=== PATIENT | male | born 1975 | race Caucasian/White ===

== ENCOUNTER 2016-09-23 08:05 | Observation (INO) | payer OTHER ==
[~2016-09-23 08:05] MED LIST: CITA40TA4 PO; OXCA300 PO; SERO100T PO; SERO400T PO; TRAZ100T4 PO; TRIL300T PO
[2016-09-23 08:08] VITALS: BP 161/93; PULSE 109; RESP 18; TEMP 98.2; O2SAT 98
[2016-09-23] MEDS ORDERED: SODIUM CHLOR 0.9% 1000 ML INJ 1,000 ML IV ONE (08:21)
--- NOTE | 2016-09-23 08:23 | PD ---
HPI Chief Complaint: cephalgia Time Seen by Provider: 08:21 Travel History International Travel<30 days: No Contact w/Intl Traveler<30days: No Traveled to known affect area: No History of Present Illness HPI This is a 40-year-old gentleman with history of seizure disorder, schizoaffective disorder, who presents today with complaints of left sided headache with blurry vision in the right eye. When looking through records, the patient has been seen and evaluated multiple times for the same thing. She states that he's been told that he possibly could've had a TIA however records show that the neurologists on 2 occasions thought this was an atypical migraine. Patient also had blurry vision at that time was seen by ophthalmology who felt there was no acute issues. The patient states that he was arguing with his girlfriend when he experienced a headache. He denies this being the worse headache of his life. He denies any neck stiffness. The patient does have a very flat affect and is vague when answering questions regarding his past medical history. This history was obtained through old records. When asked the patient possibly could've had a seizure, he denies. He does state that he fell twice last 2 days. He denies any injuries from the falls. PFSH Past Medical History Arthritis: Yes Asthma: No Autoimmune Disease: No Blood Disorders: No Anxiety: No Depression: Yes Heart Rhythm Problems: No Cancer: No Cardiovascular Problems: No High Cholesterol: No Chemotherapy: No Chest Pain: No Congestive Heart Failure: No COPD: No Cerebrovascular Accident: Yes (TIA) Diabetes: No Diminished Hearing: No Endocrine: No Gastrointestinal Disorders: No GERD: Yes Glaucoma: No Genitourinary: No Headaches: Yes Hepatitis: No Hiatal Hernia: No Hypertension: No Immune Disorder: No Inguinal Hernia: Yes Implanted Vascular Access Dvce: No Kidney Stones: No Musculoskeletal: No Neurologic: Yes Psychiatric: Yes Reproductive: No Respiratory: No Migraines: Yes Myocardial Infarction: No Radiation Therapy: No Renal Failure: No Schizophrenia: Yes Seizures: Yes Sickle Cell Disease: No Sleep Apnea: No Thyroid Disease: No Ulcer: No PNEUMOCCOCAL Vaccine (Year): 2 Past Surgical History Abdominal Surgery: Yes (hernia repair) AICD: No Cardiac Surgery: No Ear Surgery: No Endocrine Surgery: No Eye Surgery: No Genitourinary Surgery: No Gynecologic Surgery: No Neurologic Surgery: Yes (cranial as a child) Oral Surgery: No Pacemaker: No Thoracic Surgery: No Other Surgery: Yes Social History Alcohol Use: No Tobacco Use: No Substance Use: No Allergies-Medications (Allergen,Severity, Reaction): Coded Allergies: Dilantin (Verified Allergy, Severe, VISION LOSS, 09/23/16) Haldol (Verified Allergy, Severe, MUSCLE SPASMS, 09/23/16) Cogentin (Verified Adverse Reaction, Severe, MUSCLE SPASMS, 09/23/16) Reported Meds & Prescriptions Reported Meds & Active Scripts Active Reported Trazodone (Trazodone HCl) 100 Mg Tab 100 Mg PO HS Seroquel (Quetiapine Fumarate) 100 Mg Tab 100 Mg PO BID Seroquel (Quetiapine Fumarate) 400 Mg Tab 400 Mg PO HS Trileptal (Oxcarbazepine) 300 Mg Tab 300 Mg PO BID Citalopram (Citalopram Hydrobromide) 40 Mg Tab 40 Mg PO DAILY Review of Systems Except as stated in HPI: all other systems reviewed are Neg General / Constitutional: No: Fever, Chills Eyes: Positive: Blurred Vision (right eye), Photophobia, No: Redness, Foreign Body Sensation, Blindness HENT: Positive: Headaches (sided), No: Neck Stiffness, Neck Pain Cardiovascular: No: Chest Pain or Discomfort, Palpitations Respiratory: No: Cough, Shortness of Breath Gastrointestinal: No: Nausea, Vomiting, Abdominal Pain Musculoskeletal: No: Weakness, Pain Neurologic: Positive: Headache, Seizures (history of), No: Change in Mentation , Slurred Speech, Incontinence Psychiatric: Positive: Mood Disorder, No: Depression Physical Exam Narrative GENERAL: Well-developed well-nourished gentleman in no acute respiratory distress. SKIN: Focused skin assessment warm/dry. HEAD: Atraumatic. Normocephalic. EYES: No scleral icterus. No injection or drainage. ENT: No nasal bleeding or discharge. Mucous membranes pink and moist. NECK: Trachea midline. Supple. CARDIOVASCULAR: Rate in the 90s. No murmurs gallops rubs. RESPIRATORY: No accessory muscle use. Clear to auscultation. Breath sounds equal bilaterally. GASTROINTESTINAL: Abdomen soft, non-tender, nondistended. MUSCULOSKELETAL: No obvious deformities. No clubbing. No cyanosis. No edema. NEUROLOGICAL: Awake and alert. No obvious cranial nerve deficits. Motor grossly within normal limits. Normal speech. On examination of the patient's upper and lower extremities, there is 5 out of 5 strength bilaterally. PSYCHIATRIC: Flat affect. Vague response to several questions.. Data Data Last Documented VS Vital Signs Date Time Temp Pulse Resp B/P Pulse Ox O2 Delivery O2 Flow Rate FiO2 09/23/16 08:41 98.7 109 16 146/84 96 Room Air Orders Complete Blood Count With Diff (09/23/16 08:21) Comprehensive Metabolic Panel (09/23/16 08:21) Ct Brain W/O Iv Contrast(Rout) (09/23/16 08:21) Ecg Monitoring (09/23/16 08:21) Iv Access Insert/Monitor (09/23/16 08:21) Oximetry (09/23/16 08:21) Sodium Chloride 0.9% Flush (Ns Flush) (09/23/16 08:30) Sodium Chlor 0.9% 1000 Ml Inj (Ns 1000 M (09/23/16 08:21) Labs Laboratory Tests Test 09/23/16 08:32 White Blood Count 9.2 TH/MM3 Red Blood Count 4.88 MIL/MM3 Hemoglobin 14.8 GM/DL Hematocrit 43.0 % Mean Corpuscular Volume 88.1 FL Mean Corpuscular Hemoglobin 30.4 PG Mean Corpuscular Hemoglobin 34.5 % Concent Red Cell Distribution Width 14.9 % Platelet Count 222 TH/MM3 Mean Platelet Volume 9.2 FL Neutrophils (%) (Auto) 75.8 % Lymphocytes (%) (Auto) 18.2 % Monocytes (%) (Auto) 4.9 % Eosinophils (%) (Auto) 0.7 % Basophils (%) (Auto) 0.4 % Neutrophils # (Auto) 7.0 TH/MM3 Lymphocytes # (Auto) 1.7 TH/MM3 Monocytes # (Auto) 0.5 TH/MM3 Eosinophils # (Auto) 0.1 TH/MM3 Basophils # (Auto) 0.0 TH/MM3 CBC Comment DIFF FINAL Differential Comment Sodium Level 139 MEQ/L Potassium Level 3.6 MEQ/L Chloride Level 102 MEQ/L Carbon Dioxide Level 28.1 MEQ/L Anion Gap 9 MEQ/L Blood Urea Nitrogen 18 MG/DL Creatinine 1.28 MG/DL Estimat Glomerular Filtration 63 ML/MIN Rate Random Glucose 128 MG/DL Calcium Level 8.6 MG/DL Total Bilirubin 0.7 MG/DL Aspartate Amino Transf 20 U/L (AST/SGOT) Alanine Aminotransferase 29 U/L (ALT/SGPT) Alkaline Phosphatase 75 U/L Total Protein 7.4 GM/DL Albumin 3.9 GM/DL MDM Medical Decision Making Medical Screen Exam Complete: Yes Emergency Medical Condition: Yes Differential Diagnosis Atypical migraine versus postictal seizure versus TIA Narrative Course This is a 40-year-old gentle who presents with complaints of headache. The patient states it started when he was riding with his girlfriend. The patient also now says that he had some numbness and tingling to his right arm. He had normal strength on my examination. Laboratory tests are within normal limits however CT scan shows some bilateral hypodensities which are new from the MRI from a year ago. Given this, I feel is prudent that he be brought in under observation have another MRI and have neurology evaluate him. The case was discussed with Dr. Hennessy with the [facility] who is agreeable to bring the patient under observation status. Diagnosis Primary Impression: Cephalgia Additional Impressions: subacute CT brain changes. History of seizure disorder Admitting Information Admitting Physician Requests: Observation Andrea Cummings MD Sep 23, 2016 08:23
[2016-09-23] MEDS ORDERED: SODIUM CHLORIDE 0.9% FLUSH 10 ML FLUSH IVF PRN (08:30)
[2016-09-23 08:41] VITALS: BP 146/84; PULSE 109; RESP 16; TEMP 98.7; O2SAT 96
[2016-09-23 08:54] LABS: BASOPHIL % 0.4 % (0.0-2.0); EOSINOPHIL # 0.1 TH/MM3 (0-0.4); EOSINOPHIL % 0.7 % (0.0-4.0); HEMO FLAGS DIFF FINAL; LYMPH % 18.2 % (9.0-44.0); LYMPHOCYTE # 1.7 TH/MM3 (1.0-4.8); MEAN CELL VOLUME 88.1 FL (80.0-100.0); MEAN CORPUSCULAR HEMOGLOBIN 30.4 PG (27.0-34.0); MEAN CORPUSCULAR HGB CONC 34.5 % (32.0-36.0); MONO % 4.9 % (0.0-8.0); NEUT % 75.8 % (16.0-70.0); PLATELET COUNT 222 TH/MM3 (150-450); RED BLOOD COUNT 4.88 MIL/MM3 (4.50-5.90); RED CELL DISTRIBUTION WIDTH 14.9 % (11.6-17.2); WHITE BLOOD COUNT 9.2 TH/MM3 (4.0-11.0)
--- NOTE | 2016-09-23 09:03 | RADRPT ---
EXAM DATE/TIME: 09/23/2016 08:33 [facility] COMPARISON: MRI BRAIN W/O CONTRAST, August 29, 2015, 12:17. CT BRAIN W/O CONTRAST, August 29, 2015, 7:50. INDICATIONS : Dizziness, left temporal pain, blurred vision right eye. RADIATION DOSE: 56.35 CTDIvol (mGy) MEDICAL HISTORY : Seizures. Stroke SURGICAL HISTORY : Craniotomy. ENCOUNTER: Initial ACUITY: 1 day PAIN SCALE: 7/10 LOCATION: Left temporal TECHNIQUE: Multiple contiguous axial images were obtained of the head. Using automated exposure control and adj ustment of the mA and/or kV according to patient size, radiation dose was kept as low as reasonably a chievable to obtain optimal diagnostic quality images. FINDINGS: First small developing hypodensities in the subcortical white matter of the mid convexity frontal reg ions bilaterally there is no evidence of intracranial hemorrhage. The ventricles are stable and symme tric. The posterior fossa and brainstem structures are unremarkable. CONCLUSION: Developing bilateral hypodensities Luis Darnell MD on September 23, 2016 at 8:57 Board Certified Radiologist. This report was verified electronically.
[2016-09-23 09:13] LABS: ANION GAP 9 MEQ/L (5-15); AST (GOT) 20 U/L (15-37); BICARBONATE 28.1 MEQ/L (21.0-32.0); BLOOD UREA NITROGEN 18 MG/DL (7-18); CHLORIDE 102 MEQ/L (98-107); GLOMERULAR FILTRATION RATE 63 ML/MIN (>89); POTASSIUM 3.6 MEQ/L (3.5-5.1); SODIUM (NA) 139 MEQ/L (136-145)
[2016-09-23 09:17] LABS: ALKALINE PHOSPHATASE 75 U/L (45-117); ALT (GPT) 29 U/L (12-78); TOTAL BILIRUBIN ADULT 0.7 MG/DL (0.2-1.0)
[2016-09-23 10:14] VITALS: BP 135/64; PULSE 77; RESP 16; O2SAT 97
[2016-09-23] MEDS ORDERED: NALOXONE HCL 0.4 MG/ML AMP IV PRN (10:15)
[2016-09-23] MEDS ORDERED: SODIUM CHLORIDE 0.9% FLUSH 10 ML FLUSH IV FLUSH PRN (10:15)
[2016-09-23] MEDS ORDERED: ONDANSETRON HCL 4 MG/2 ML VIAL IVP PRN (10:15)
[2016-09-23] MEDS ORDERED: MAGNESIUM HYDROXIDE SUSP 30 ML CUP PO PRN (10:15)
[2016-09-23] MEDS ORDERED: ACETAMINOPHEN 325 MG TAB PO PRN (10:15)
[2016-09-23] MEDS ORDERED: TEMAZEPAM 15 MG CAP PO PRN (10:15)
[2016-09-23] MEDS: SODIUM CHLOR 0.9% 1000 ML INJ 1,000 ML IV SCH ×2 (11:14→20:21)
[2016-09-23 12:16] VITALS: BP 134/86; PULSE 85; RESP 18; TEMP 98.7; O2SAT 97
--- NOTE | 2016-09-23 15:44 | HHI.HP ---
[facility] Mayda Moore MD Admission Diagnosis cephalgia, subacute CT brain changes, seizure disorder. Diagnoses: Chief Complaint: Headache, blurred vision, numbness Travel History International Travel<30 Days: No Contact w/Intl Traveler <30 Da: No Traveled to Known Affected Are: No History of Present Illness 40-year-old male with a past medical history of seizure disorder, schizoaffective disorder, history of TIA who presented with headache, blurry vision, and right-sided numbness. Patient states that around noon yesterday he was having an argument with his girlfriend and developed neurological symptoms. He states that he's been having left temporal headache, right eye blurriness, and numbness on his right side constantly since that time. He also states that he had 2 falls yesterday, because he's been having intermittent right leg weakness. He states that he's been feeling dizzy. He denies any chest pain, palpitations, fever, chills, cough, shortness of breath, incontinence. He denies any history of similar symptoms or migraines. Review of Systems Except as stated in HPI: all other systems reviewed are Neg Past Family Social History Past Medical History Seizure disorder Schizoaffective disorder TIA 2, last episode 2008 Past Surgical History Intracranial surgery at age 1-1/2 Hernia surgery in 1994 Reported Medications Trazodone (Trazodone HCl) 100 Mg Tab 100 Mg PO HS Seroquel (Quetiapine Fumarate) 100 Mg Tab 100 Mg PO BID Seroquel (Quetiapine Fumarate) 400 Mg Tab 400 Mg PO HS Trileptal (Oxcarbazepine) 300 Mg Tab 300 Mg PO BID Citalopram (Citalopram Hydrobromide) 40 Mg Tab 40 Mg PO DAILY Allergies: Coded Allergies: Dilantin (Verified Allergy, Severe, VISION LOSS, 09/23/16) Haldol (Verified Allergy, Severe, MUSCLE SPASMS, 09/23/16) Cogentin (Verified Adverse Reaction, Severe, MUSCLE SPASMS, 09/23/16) Active Ordered Medications Current Medications Medications (Trade) Dose Ordered Sig/Cherie Route Start Time Stop Time Status Last Admin (NS 1000 ml Inj) 1,000 ml @ 100 mls/hr Q10H IV 09/23/16 11:00 09/23/16 11:14 (NS Flush) 2 ml UNSCH PRN IV FLUSH 09/23/16 10:15 (NS Flush) 2 ml BID IV FLUSH 09/23/16 21:00 (Tylenol) 650 mg Q4H PRN PO 09/23/16 10:15 (Zofran Inj) 4 mg Q6H PRN IVP 09/23/16 10:15 (Milk Of Magnesia Liq) 30 ml Q12H PRN PO 09/23/16 10:15 (Restoril) 15 mg HS PRN PO 09/23/16 10:15 (Narcan Inj) 0.4 mg UNSCH PRN IV 09/23/16 10:15 (CeleXA) 40 mg DAILY PO 09/24/16 09:00 (Trileptal) 300 mg BID PO 09/23/16 21:00 (SEROquel) 100 mg BID PO 09/23/16 21:00 (Desyrel) 100 mg HS PO 09/23/16 21:00 (SEROquel) 400 mg HS PO 09/23/16 21:00 Family History Mother had seizures Mother had bipolar disorder Social History Smokes 1 pack every 3 days Drinks about 12 beers per week Denies any drug use Physical Exam Vital Signs Vital Signs Date Time Temp Pulse Resp B/P Pulse Ox O2 Delivery O2 Flow Rate FiO2 09/23/16 12:16 98.7 85 18 134/86 97 09/23/16 10:41 Room Air 09/23/16 10:14 77 16 135/64 97 Room Air 09/23/16 08:41 98.7 109 16 146/84 96 Room Air 09/23/16 08:08 98.2 109 18 161/93 98 Room Air Physical Exam GENERAL: Well-developed well-nourished. In no acute distress. SKIN: Warm and dry. No lesions noted. HEENT: Normocephalic. Pupils equal and round. Mucous membranes pink and moist. CARDIOVASCULAR: Regular rate and rhythm. No murmur appreciated. RESPIRATORY: No accessory muscle use. Clear to auscultation. Breath sounds equal bilaterally. GASTROINTESTINAL: Abdomen soft, non-tender, nondistended. Bowel sounds x4. MUSCULOSKELETAL: No obvious deformities. No clubbing or cyanosis. No edema. NEUROLOGICAL: Awake and alert. Moves upper and lower extremities spontaneously. Normal speech. Cranial nerves grossly intact. Blurred vision right eye. Subjectively decreased sensation in the right upper extremity. Decreased strength on the right. Good strength in the left. PSYCHIATRIC: Appropriate mood and flat affect; insight and judgment normal. Laboratory Laboratory Tests Test 09/23/16 08:32 White Blood Count 9.2 Red Blood Count 4.88 Hemoglobin 14.8 Hematocrit 43.0 Mean Corpuscular Volume 88.1 Mean Corpuscular Hemoglobin 30.4 Mean Corpuscular Hemoglobin 34.5 Concent Red Cell Distribution Width 14.9 Platelet Count 222 Mean Platelet Volume 9.2 Neutrophils (%) (Auto) 75.8 Lymphocytes (%) (Auto) 18.2 Monocytes (%) (Auto) 4.9 Eosinophils (%) (Auto) 0.7 Basophils (%) (Auto) 0.4 Neutrophils # (Auto) 7.0 Lymphocytes # (Auto) 1.7 Monocytes # (Auto) 0.5 Eosinophils # (Auto) 0.1 Basophils # (Auto) 0.0 CBC Comment DIFF FINAL Differential Comment Sodium Level 139 Potassium Level 3.6 Chloride Level 102 Carbon Dioxide Level 28.1 Anion Gap 9 Blood Urea Nitrogen 18 Creatinine 1.28 Estimat Glomerular Filtration 63 Rate Random Glucose 128 Calcium Level 8.6 Total Bilirubin 0.7 Aspartate Amino Transf 20 (AST/SGOT) Alanine Aminotransferase 29 (ALT/SGPT) Alkaline Phosphatase 75 Total Protein 7.4 Albumin 3.9 Result Diagram: 09/23/1632 09/23/1632 Imaging Last Impressions Head CT 09/23/16820 Signed Impressions: Service Date/Time: Friday, September 23, 2016 08:33 - CONCLUSION: Developing bilateral hypodensities Luis Darnell MD Assessment and Plan Assessment and Plan 40-year-old male with a past medical history of seizure disorder, schizoaffective disorder, history of TIA who presented with headache, blurry vision, and right-sided numbness Acute neurological deficits: Including left temporal headache, right eye blurry vision, right-sided numbness, right-sided and intermittent weakness. Head CT shows a developing bilateral hypodensities, unclear etiology. Neurology consulted, appreciate specialists input. It appears patient has had similar admissions for the past and been evaluated by neuro at that time with suspected migraine variants. Further imaging per neurology. Neuro checks. IVF. Tylenol as needed. PT eval. Seizure disorder: Continue Trileptal. Schizoaffective disorder: Continue Seroquel, citalopram, and trazodone. DVT prophylaxis: SCDs. Written by Lew Zaman, acting as scribe for Dr. Hennessy on 09/23/16 at 15:44. All or portions of this note were transcribed by scribe JANETH Hodge. I, Dr. Estiven Hennessy personally performed the history, physical exam, and medical decision making; and confirmed the accuracy of the information in the transcribed note. Authenticated by Dr. Estiven Hennessy on 09/23/16 at 22:16. Discussed Condition With Patient Lew Zaman Sep 23, 2016 15:44 Ana Hennessy DO Sep 23, 2016 22:17
[2016-09-23 16:56] VITALS: BP 135/89; PULSE 65; RESP 16; TEMP 98.6; O2SAT 96
[2016-09-23 19:29] VITALS: BP 122/76; PULSE 65; RESP 18; TEMP 96.8; O2SAT 97
[2016-09-23] MEDS: OXcarbazepine 300 MG TAB PO SCH (20:20)
[2016-09-23] MEDS: SODIUM CHLORIDE 0.9% FLUSH 10 ML FLUSH IV FLUSH SCH (20:20)
[2016-09-23] MEDS: QUEtiapine FUMARATE 200 MG TAB PO SCH (20:20)
[2016-09-23] MEDS: traZODone HCL 100 MG TAB PO SCH (20:20)
[2016-09-24] VITALS: BP 114/59; PULSE 66; RESP 18; TEMP 98.2; O2SAT 91
[2016-09-24 04:36] VITALS: BP 101/59; PULSE 60; RESP 18; TEMP 97.9
[2016-09-24 05:21] LABS: BICARBONATE 28.4 MEQ/L (21.0-32.0); POTASSIUM 3.7 MEQ/L (3.5-5.1)
[2016-09-24] MEDS: SODIUM CHLOR 0.9% 1000 ML INJ 1,000 ML IV SCH ×2 (06:25→19:49)
--- NOTE | 2016-09-24 06:35 | MB ---
cc: MONIQUE ANTUNEZ DATE OF CONSULTATION 09/23/2016 REASON FOR CONSULTATION Seizures and headache. HISTORY OF PRESENT ILLNESS Mr. Barrera is a 40-year-old male with past medical history of a seizure disorder, schizoaffective disorder, history of two TIAs as per patient and history of migraine headache. The patient states that he has had left temporal headache with the right eye blurriness that started around noon yesterday, then he states that he had numbness on the right side of his body and he lost balance and fell. The patient is on Trileptal 200 mg twice daily for the seizure and he was diagnosed with seizure since she was 22 years of age. 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 The patient denies slurred speech, loss of consciousness, incontinence, tongue biting or foaming. REVIEW OF SYSTEMS A 12-point review of systems is negative except for what is stated in the HPI. PAST MEDICAL HISTORY 1. Seizures. 2. Schizoaffective disorder. 3. TIA, last episode in 2008. PAST SURGICAL HISTORY 1. Intracranial surgery at 1-1/2 years of age for "overlap of skull bone". 2. Hernia surgery in 1994 FAMILY HISTORY Noncontributory. MEDICATIONS 1. Trazodone. 2. Seroquel. 3. Trileptal. 4. Citalopram. ALLERGIES DILANTIN. HALDOL. COGENTIN. SOCIAL HISTORY Smokes one-pack every 3 days, drinks about 12 beers per week and denies any drug abuse. PHYSICAL EXAMINATION GENERAL: Awake, alert. Good historian. Not in acute distress. HEENT: Scar over the midline suture of the skull of a remote surgical procedure. Intact hearing. Intact vision. CARDIOVASCULAR: Regular rate and rhythm. RESPIRATORY: No accessory muscle use. Clear to auscultate and no wheezes. MUSCULOSKELETAL: No obvious deformity. Moves all extremities equally. No clubbing or edema. NEUROLOGICAL: Awake, alert, oriented to time, person and place. Cranial nerves II-XII are grossly intact. Intact speech. Intact speech content. Motor system examination 5/5 bilateral and symmetrical. No abnormal movements and normal tone. Sensory system to light touch and temperature is intact bilateral and symmetrical. Reflexes 2+ bilateral and symmetrical. Plantars are bilaterally downgoing. [id number] and [id number] is intact bilateral. Plantars are symmetrical. PSYCHIATRIC: Appropriate mood and affect, insight and judgment. No hallucination. LABORATORY DATA White blood cells 9.2, hemoglobin 14.8, MCV 88, platelets 222,000. Sodium 139, potassium 3.6, carbon dioxide 28.1, anion gap 9, BUN 18, creatinine 1.28, calcium 8.6, GOT 20, GPT 29, alkaline phosphatase 75, albumin 3.9. IMAGING STUDIES - Head CT scan without contrast with small developing hypodensities in the subcortical white matter of mid-convexity frontal regions bilaterally with no evidence of intracranial hemorrhage. Ventricles are stable and symmetric. The posterior fossa and brainstem structures are unremarkable. DIAGNOSTIC IMPRESSION 1. History of headache and right-sided weakness. 2. History of TIA. 3. Seizures. Given the abnormal head CT scan with persistent neurologic complaints, I would pursue workup for this patient. PLAN 1. Neuro checks q. 4 hours. 2. Continue Trileptal at home dose of 200 mg twice daily. 3. Seizure precautions. 4. MRI brain with and without contrast. 5. DVT prophylaxis - SCDs. Thank you for the opportunity to participate in the care of your patient. MD VONDA Estrada/MAGDALENA /10:16 PM /6:17 AM SARIKA
[2016-09-24 08:00] VITALS: BP 135/67; PULSE 62; RESP 16; TEMP 96.8; O2SAT 98
[2016-09-24] MEDS: SODIUM CHLORIDE 0.9% FLUSH 10 ML FLUSH IV FLUSH SCH ×2 (09:00→21:00)
[2016-09-24] MEDS ORDERED: CITALOPRAM HYDROBROMIDE 40 MG TAB PO SCH (09:00)
[2016-09-24] MEDS: OXcarbazepine 300 MG TAB PO SCH ×2 (10:01→21:58)
[2016-09-24] MEDS: QUEtiapine FUMARATE 100 MG TAB PO SCH ×2 (10:01→13:33)
--- NOTE | 2016-09-24 10:26 | HHI.PR ---
Subjective Remarks Follow-up for headache. No acute issues overnight. The patient continues to have vision problems today, unchanged. Going for MRI. Objective Vitals Vital Signs Date Time Temp Pulse Resp B/P Pulse Ox O2 Delivery O2 Flow Rate FiO2 09/24/16 04:36 97.9 60 18 101/59 09/24/16 00:00 98.2 66 18 114/59 91 09/23/16 19:29 96.8 65 18 122/76 97 09/23/16 16:56 98.6 65 16 135/89 96 09/23/16 12:16 98.7 85 18 134/86 97 09/23/16 10:41 Room Air I/O 09/23/16 09/23/16 09/23/16 09/24/16 09/24/16 09/24/16 07:00 15:00 23:00 07:00 15:00 23:00 Intake Total 980 ml Output Total 375 ml Balance 605 ml Intake Oral 480 ml IV Total 500 ml Output Urine Total 375 ml Result Diagram: 09/23/16 0832 09/24/16 0349 Imaging Last Impressions Head CT 09/23/16820 Signed Impressions: Service Date/Time: Friday, September 23, 2016 08:33 - CONCLUSION: Developing bilateral hypodensities Luis Darnell MD Objective Remarks GENERAL: Well-developed well-nourished. In no acute distress. SKIN: Warm and dry. No lesions noted. HEENT: Normocephalic. Pupils equal and round. Mucous membranes pink and moist. CARDIOVASCULAR: Regular rate and rhythm. No murmur appreciated. RESPIRATORY: No accessory muscle use. Clear to auscultation. Breath sounds equal bilaterally. GASTROINTESTINAL: Abdomen soft, non-tender, nondistended. Bowel sounds x4. MUSCULOSKELETAL: No obvious deformities. No clubbing or cyanosis. No edema. NEUROLOGICAL: Awake and alert. No focal neurological deficits. Moves upper and lower extremities spontaneously. Normal speech. PSYCHIATRIC: Appropriate mood and flat affect; insight and judgment normal. A/P Assessment and Plan 40-year-old male with a past medical history of seizure disorder, schizoaffective disorder, history of TIA who presented with headache, blurry vision, and right-sided numbness Acute neurological deficits: Including left temporal headache, right eye blurry vision, right-sided numbness, right-sided and intermittent weakness. Head CT shows a developing bilateral hypodensities, unclear etiology. Neurology consulted, appreciate specialists input. It appears patient has had similar admissions for the past and been evaluated by neuro at that time with suspected migraine variants. Neurology ordered EEG and brain MRI. Neuro checks. IVF. Tylenol as needed. PT eval. Seizure disorder: Continue Trileptal. Schizoaffective disorder: Continue Seroquel, citalopram, and trazodone. DVT prophylaxis: SCDs. Written by Lew Zaman, acting as scribe for Dr. Hennessy on 09/24/16 at 10:23. All or portions of this note were transcribed by scribe JANETH Hodge. I, Dr. Estiven Hennessy personally performed the history, physical exam, and medical decision making; and confirmed the accuracy of the information in the transcribed note. Authenticated by Dr. Estiven Hennessy on 09/24/16 at 23:24. Discharge Planning Follow up results of EEG and MRI. Follow-up PT recommendations. Workup was unremarkable and patient remains stable, discharge planning for follow-up with neurology as outpatient. Lew Zaman Sep 24, 2016 10:25 Ana Hennessy DO Sep 24, 2016 23:25
[2016-09-24] MEDS ORDERED: GADODIAMIDE PF 287 MG/ML 20 ML VIAL (for RAD MRI) IV ONE (11:39)
[2016-09-24 12:00] VITALS: BP 107/63; PULSE 64; RESP 16; TEMP 96.7; O2SAT 96
--- NOTE | 2016-09-24 16:26 | RADRPT ---
EXAM DATE/TIME: 09/24/2016 11:30 [facility] COMPARISON: MRI BRAIN W/O CONTRAST, August 29, 2015, 12:17. CT BRAIN W/O CONTRAST, September 23, 2016, 8:33. INDICATIONS : Seizures. Blurred vision in right eye and pain in left restorationist for two days. CONTRAST: 19 cc Omniscan (gadodiamide) IV MEDICAL HISTORY : Seizures. SURGICAL HISTORY : Hernia repair and brain surgery as child. ENCOUNTER: Initial ACUITY: 2 day PAIN SCORE: 6/10 LOCATION: Head. TECHNIQUE: Multiplanar, multisequence MRI of the brain was performed both prior to and following the administrat ion of paramagnetic contrast. FINDINGS: CEREBRUM: The ventricles are normal for age. No evidence of midline shift, mass lesion, hemorrhage or acute in farction. No extraaxial fluid collections are seen. The pituitary gland and suprasellar cistern are normal in configuration. WHITE MATTER: No significant signal abnormalities are seen in the white matter. There is mild prominence of the Vi rchow-Lai spaces of the high convexity parietal white matter. POSTERIOR FOSSA: The cerebellum and brainstem are intact. The 4th ventricle is midline. The cerebellopontine angle is unremarkable. The cerebellar tonsils are low lying in position, stable. DIFFUSION IMAGING: No focal areas of restricted diffusion are seen. No evidence of acute infarction. EXTRACRANIAL: The visualized portions of the orbits and paranasal sinuses are unremarkable. POST-CONTRAST: No abnormal areas of parenchymal or dural enhancement. No evidence of blood-brain barrier breakdown. CONCLUSION: Negative MRI of the brain with and without contrast. In particular, no signal abnormalities seen in the parietal white matter. Vidal Cantu MD on September 24, 2016 at 16:22 Board Certified Radiologist. This report was verified electronically.
[2016-09-24 19:21] VITALS: BP 121/75; PULSE 65; RESP 20; TEMP 97.9; O2SAT 96
--- NOTE | 2016-09-24 20:48 | HHI.PR ---
Review/Management Diagnosis 1. History of headache 2. History of TIA. 3. Seizures 4. Schizoaffective disorder. Plan Patient stable from neurologic standpoint Non-focal neurologic exam Neurologic tests, imaging and EEG were unremarkable Continue Oxcarbazepine [Trileptal] at home dose of 300 mg twice daily. Seizure precautions. Patient may follow at outpatient neurology Please call for any questions Diagnosis/Plan: Subjective Subjective Comments No acute events reported Stable neurologic exam No reported seizures EEG is reported with no ictal activity MRI brain w & w/o contrast is unremarkable Active Medications Current Medications Medications (Trade) Dose Ordered Sig/Cherie Route Start Time Stop Time Status Last Admin (NS 1000 ml Inj) 1,000 ml @ 70 mls/hr [id number] IV 09/23/16 11:00 09/23/16 20:21 (NS Flush) 2 ml UNSCH PRN IV FLUSH 09/23/16 10:15 (NS Flush) 2 ml BID IV FLUSH 09/23/16 21:00 09/23/16 20:20 (Tylenol) 650 mg Q4H PRN PO 09/23/16 10:15 (Zofran Inj) 4 mg Q6H PRN IVP 09/23/16 10:15 (Milk Of Magnesia Liq) 30 ml Q12H PRN PO 09/23/16 10:15 (Restoril) 15 mg HS PRN PO 09/23/16 10:15 (Narcan Inj) 0.4 mg UNSCH PRN IV 09/23/16 10:15 (CeleXA) 40 mg DAILY PO 09/24/16 09:00 09/24/16 10:01 (Trileptal) 300 mg BID PO 09/23/16 21:00 09/24/16 10:01 (SEROquel) 100 mg BID@09,12 PO 09/24/16 09:00 09/24/16 13:33 (Desyrel) 100 mg HS PO 09/23/16 21:00 09/23/16 20:20 (SEROquel) 400 mg HS PO 09/23/16 21:00 09/23/16 20:20 Allergies Allergies Coded Allergies Dilantin (Verified Allergy, Severe, VISION LOSS, 09/23/16) Haldol (Verified Allergy, Severe, MUSCLE SPASMS, 09/23/16) Cogentin (Verified Adverse Reaction, Severe, MUSCLE SPASMS, 09/23/16) Review of Systems All other ROS: ROS reviewed as documented in chart Exam I&O / VS 09/23/16 09/23/16 09/24/16 15:00 23:00 07:00 Intake Total 980 ml Output Total 375 ml Balance 605 ml Intake Oral 480 ml IV Total 500 ml Output Urine Total 375 ml Vital Signs Date Time Temp Pulse Resp B/P Pulse Ox O2 Delivery O2 Flow Rate FiO2 09/24/16 19:21 97.9 65 20 121/75 96 09/24/16 12:00 96.7 64 16 107/63 96 09/24/16 08:00 96.8 62 16 135/67 98 09/24/16 04:36 97.9 60 18 101/59 09/24/16 00:00 98.2 66 18 114/59 91 General: Alert and Oriented, No acute distress Eye: EOMI Respiratory: Non-labored respirations Cardiology: Normal rate, No murmur, Regular Rhythm Musculoskeletal: ROM Neurologic: Alert, Oriented, Normal sensory, Normal motor, No focal defects, CN II-XII intact, Normal DTR's Psychiatric: Cooperative, Appropriate mood & affect, Non-suicidal Objective Radiology Results Last 72 hours Impressions Brain MRI 09/24/16 0000 Signed Impressions: Service Date/Time: September 11:30 - CONCLUSION: Negative MRI of the brain with and without contrast. In particular, no signal abnormalities seen in the parietal white matter. Vidal Cantu MD Head CT 09/23/16 0821 Signed Impressions: Service Date/Time: Friday, September 23, 2016 08:33 - CONCLUSION: Developing bilateral hypodensities Luis Darnell MD Micro and Labs Laboratory Tests Test 09/24/16 03:49 Sodium Level 144 Potassium Level 3.7 Chloride Level 109 Carbon Dioxide Level 28.4 Anion Gap 7 Blood Urea Nitrogen 15 Creatinine 1.02 Estimat Glomerular Filtration 82 Rate Random Glucose 83 Calcium Level 8.1 Diagnostic Tests EEG is reported with no ictal activity Spencer Goncalves MD Sep 24, 2016 20:48
[2016-09-24] MEDS: traZODone HCL 100 MG TAB PO SCH (21:58)
[2016-09-24] MEDS: QUEtiapine FUMARATE 200 MG TAB PO SCH (21:58)
[2016-09-24 23:48] VITALS: BP 90/56; PULSE 54; RESP 20; TEMP 98
[2016-09-25 04:29] VITALS: BP 110/66; PULSE 69; RESP 20; TEMP 98.1; O2SAT 95
--- NOTE | 2016-09-25 05:37 | MG ---
cc: JUAN JOSE KUNZ M.D. Lab No: [id number] Date: 09/24/2016 Age: 40 Sex: M Race: DATE OF 1975 AGE [age] years old EEG NUMBER [id number] REFERRING PHYSICIAN MD Ivanna ROOM F63 INDICATIONS Awake, drowsy, asleep study. Abnormal CT. MRI report not back yet. Photic stimulation was done. CT - Some developing hypodensities. EEG on 03/22/2012 was normal. INDICATIONS This is a 40-year-old male with a left-sided headache, blurry vision right eye. Fell two times in two days. Apparently was informed that it was a migraine. History of seizures and schizoaffective disease. MEDICATIONS 1. Celexa. 2. Seroquel. DESCRIPTION OF RECORD The patient had an alpha rhythm of 8-8.5 Hz, 20-40 microvolts. A lot of eye movement but overall lower amplitude, fairly symmetrical background. Photic stimulation did show bilateral driving response. Hyperventilation was not performed. EKG looks sinus. IMPRESSION Normal-appearing EEG. No evidence of any epileptic activity. Clinical correlation MD STEVEN Matthews/MAGDALENA /4:22 PM /5:30 AM
--- NOTE | 2016-09-25 07:35 | HHI.PR ---
Subjective Remarks Follow up for headache and neurological deficit. The patient reports feeling well today. The patient reports his headache has improved. He is ambulating without difficulty. Ready for discharge. Objective Vitals Vital Signs Date Time Temp Pulse Resp B/P Pulse Ox O2 Delivery O2 Flow Rate FiO2 09/25/16 04:29 98.1 69 20 110/66 95 09/24/16 23:48 98.0 54 20 90/56 09/24/16 19:21 97.9 65 20 121/75 96 09/24/16 12:00 96.7 64 16 107/63 96 09/24/16 08:00 96.8 62 16 135/67 98 I/O 09/24/16 09/24/16 09/24/16 09/25/16 09/25/16 09/25/16 07:00 15:00 23:00 07:00 15:00 23:00 Intake Total 480 ml Output Total 350 ml 400 ml Balance 130 ml -400 ml Intake Oral 480 ml Output Urine Total 350 ml 400 ml # Voids 1 # Bowel Movements 0 Result Diagram: 09/23/16 0832 09/24/16 0349 Imaging Last Impressions Brain MRI 09/24/16 0000 Signed Impressions: Service Date/Time: September 11:30 - CONCLUSION: Negative MRI of the brain with and without contrast. In particular, no signal abnormalities seen in the parietal white matter. Vidal Cantu MD Head CT 09/23/16 0821 Signed Impressions: Service Date/Time: Friday, September 23, 2016 08:33 - CONCLUSION: Developing bilateral hypodensities Luis Darnell MD Objective Remarks GENERAL: Well-nourished, well-developed middle aged male patient in [facility]. SKIN: Warm and dry. No rash. HEENT: Normocephalic. Atraumatic. Pupils equal and round. No scleral icterus. No injection or drainage. Mucous membranes pink and moist. NECK: Supple. Trachea midline. CARDIOVASCULAR: Regular rate and rhythm. S1, S2 noted. No murmur appreciated. RESPIRATORY: No accessory muscle use. Clear to auscultation. Breath sounds equal bilaterally. GASTROINTESTINAL: Abdomen soft, non-tender, nondistended. Normoactive bowel sounds x4. MUSCULOSKELETAL: No obvious deformities. Extremities without clubbing, cyanosis , or edema. NEUROLOGICAL: Awake and alert. No obvious cranial nerve deficits. Motor grossly within normal limits. 5/5 muscle strength in bilateral upper and lower extremities. Normal speech. PSYCHIATRIC: Appropriate mood and affect; insight and judgment normal. Medications and IVs Current Medications Medications (Trade) Dose Ordered Sig/Cherie Route Start Time Stop Time Status Last Admin (NS 1000 ml Inj) 1,000 ml @ 70 mls/hr [id number] IV 09/23/16 11:00 09/23/16 20:21 (NS Flush) 2 ml UNSCH PRN IV FLUSH 09/23/16 10:15 (NS Flush) 2 ml BID IV FLUSH 09/23/16 21:00 09/23/16 20:20 (Tylenol) 650 mg Q4H PRN PO 09/23/16 10:15 (Zofran Inj) 4 mg Q6H PRN IVP 09/23/16 10:15 (Milk Of Magnesia Liq) 30 ml Q12H PRN PO 09/23/16 10:15 (Restoril) 15 mg HS PRN PO 09/23/16 10:15 (Narcan Inj) 0.4 mg UNSCH PRN IV 09/23/16 10:15 (CeleXA) 40 mg DAILY PO 09/24/16 09:00 09/24/16 10:01 (Trileptal) 300 mg BID PO 09/23/16 21:00 09/24/16 21:58 (SEROquel) 100 mg BID@09,12 PO 09/24/16 09:00 09/24/16 13:33 (Desyrel) 100 mg HS PO 09/23/16 21:00 09/24/16 21:58 (SEROquel) 400 mg HS PO 09/23/16 21:00 09/24/16 21:58 Urinary Catheter: No Vascular Central Line Catheter: No A/P Assessment and Plan 40-year-old male with a past medical history of seizure disorder, schizoaffective disorder, history of TIA who presented with headache, blurry vision, and right-sided numbness Acute neurological deficits: Including left temporal headache, right eye blurry vision, right-sided numbness, right-sided and intermittent weakness. Head CT shows a developing bilateral hypodensities, unclear etiology. Neurology consulted, appreciate specialists input. It appears patient has had similar admissions for the past and been evaluated by neuro at that time with suspected migraine variants. Neuro checks. IVF. Tylenol as needed. PT eval, no PT needed at discharge. Neurology ordered EEG and brain MRI which were both unremarkable. Cleared for discharge by neuro, outpatient f/up. Continue Trileptal. Seizure disorder: Stable, EEG negative. Continue Trileptal. Schizoaffective disorder: Continue Seroquel, citalopram, and trazodone. DVT prophylaxis: SCDs. Written by Marleny Malhotra, acting as scribe for Dr. Hennessy on 09/25/16 at 08:05 All or portions of this note were transcribed by scribe JANETH House. I , Dr. Estiven Hennessy personally performed the history, physical exam, and medical decision making; and confirmed the accuracy of the information in the transcribed note. Authenticated by Dr. Estiven Hennessy on 09/26/16 at 00:08. Discharge Planning Discharge patient to home Condition on discharge: Improved Regular Diet as tolerated Ad Diandra activity, Seizure Precautions Rx written: no changes to meds Follow-up with primary care physician and neurology Marleny Malhotra PA-C Sep 25, 2016 07:35 Ana Hennessy DO Sep 26, 2016 00:09
[2016-09-25 08:00] VITALS: BP 119/79; PULSE 65; RESP 20; TEMP 96.4; O2SAT 98
[2016-10-08] MEDS ORDERED: KETO60IN6 IM (16:01)
[2016-10-08] MEDS ORDERED: METH125I2 IM (16:01)
[2016-11-24] MEDS ORDERED: TRAZ50TA12 PO (14:55)
[2016-11-24] MEDS ORDERED: METH125I2 IM (15:18)
[2016-11-24] MEDS ORDERED: KETO60IN6 IM (15:18)
== END 2016-09-25 10:27 | disposition home or self-care (01) ==
LOC: NEPE 08:05 → NEDA 10:19 → NEPFCDU 12:11
PROVIDERS: ADMIT Hospitalist; ATTEND Hospitalist
DX: R51 Headache (principal); H53.8 Other visual disturbances; R20.0 Anesthesia of skin; R53.1 Weakness; G40.909 Epilepsy, unspecified, not intractable, without status epilepticus; F25.9 Schizoaffective disorder, unspecified; M19.90 Unspecified osteoarthritis, unspecified site; K21.9 Gastro-esophageal reflux disease without esophagitis; F32.9 Major depressive disorder, single episode, unspecified; Z88.8 Allergy status to other drugs, medicaments and biological substances; Z86.73 Personal history of transient ischemic attack (TIA), and cerebral infarction without residual deficits
CPT/HCPCS: 70450; 70553; 80048; 80053; 85025; 95819; 96360; 97163; 99285; A9579; G0378; G8987; G8988; J7030

== ENCOUNTER 2016-10-11 10:22 | Emergency (ER) | payer OTHER ==
[~2016-10-11] VITALS: Ht 177.8 cm; Wt 95.5 kg
[~2016-10-11 10:22] MED LIST changes: -OXCA300 PO
[2016-10-11 10:24] VITALS: BP 150/93; PULSE 86; RESP 20; TEMP 98.5; O2SAT 96
[2016-10-11] MEDS ORDERED: LIDOCAINE VISCOUS 2% SOLN 15 ML UDC PO ONE (11:00)
[2016-10-11] MEDS ORDERED: SODIUM CHLORIDE 0.9% FLUSH 10 ML FLUSH IV FLUSH PRN (11:00)
[2016-10-11] MEDS ORDERED: ALUMINUM/MAGNESIUM/SIMETH 30 ML CUP PO ONE (11:00)
--- NOTE | 2016-10-11 11:04 | PD ---
HPI Chief Complaint: Chest Pain Time Seen by Provider: 10:59 Travel History International Travel<30 days: No Contact w/Intl Traveler<30days: No Traveled to known affect area: No History of Present Illness HPI Patient 41-year-old male presents with sharp and stabbing chest pain now radiating to his left shoulder for the past week. Patient states his been gradually getting worse. Endorse some mild nausea without vomiting. Denies having problems like this in the past. He is a smoker. No heart history. Denies having history of cardiac catheterization or stress test per patient does have a notable history for schizophrenia. Denies any headache abdominal pain nausea vomiting audiovisual hallucinations. PFSH Past Medical History Arthritis: Yes Asthma: No Autoimmune Disease: No Blood Disorders: No Anxiety: No Depression: Yes Heart Rhythm Problems: No Cancer: No Cardiovascular Problems: No High Cholesterol: No Chemotherapy: No Chest Pain: No Congestive Heart Failure: No COPD: No Cerebrovascular Accident: Yes Diabetes: No Diminished Hearing: No Endocrine: No Gastrointestinal Disorders: No GERD: Yes Glaucoma: No Genitourinary: No Headaches: Yes Hepatitis: No Hiatal Hernia: No Hypertension: No Immune Disorder: No Inguinal Hernia: Yes Implanted Vascular Access Dvce: No Kidney Stones: No Musculoskeletal: No Neurologic: Yes (SEIZURE DISORDER, SCHIZOAFFECTIVE) Psychiatric: Yes Reproductive: No Respiratory: No Migraines: Yes Myocardial Infarction: No Radiation Therapy: No Renal Failure: No Schizophrenia: Yes Seizures: Yes Sickle Cell Disease: No Sleep Apnea: No Thyroid Disease: No Ulcer: No PNEUMOCCOCAL Vaccine (Year): 2 Past Surgical History Abdominal Surgery: Yes (hernia repair) AICD: No Cardiac Surgery: No Ear Surgery: No Endocrine Surgery: No Eye Surgery: No Genitourinary Surgery: No Gynecologic Surgery: No Neurologic Surgery: Yes (cranial as a child) Oral Surgery: No Pacemaker: No Thoracic Surgery: No Other Surgery: Yes Social History Alcohol Use: Yes (12 PACK BEER A WEEK) Tobacco Use: Yes Substance Use: No Allergies-Medications (Allergen,Severity, Reaction): Coded Allergies: Dilantin (Verified Allergy, Severe, VISION LOSS, 10/08/16) Haldol (Verified Allergy, Severe, MUSCLE SPASMS, 10/08/16) Cogentin (Verified Adverse Reaction, Severe, MUSCLE SPASMS, 10/08/16) Reported Meds & Prescriptions Reported Meds & Active Scripts Active Maalox (Calcium Carbonate (Antacid)) 600 Mg Chew 600 Mg CHEW Q8HR PRN Reported Trazodone (Trazodone HCl) 100 Mg Tab 100 Mg PO HS Seroquel (Quetiapine Fumarate) 100 Mg Tab 100 Mg PO BID Seroquel (Quetiapine Fumarate) 400 Mg Tab 400 Mg PO HS Trileptal (Oxcarbazepine) 300 Mg Tab 300 Mg PO BID Citalopram (Citalopram Hydrobromide) 40 Mg Tab 40 Mg PO DAILY Review of Systems Except as stated in HPI: all other systems reviewed are Neg Physical Exam Narrative GENERAL: Well-developed well-nourished no apparent distress, unkempt. SKIN: Focused skin assessment warm/dry. HEAD: Atraumatic. Normocephalic. EYES: Pupils equal and round. No scleral icterus. No injection or drainage. ENT: No nasal bleeding or discharge. Mucous membranes pink and moist. NECK: Trachea midline. No JVD. CARDIOVASCULAR: Regular rate and rhythm. No murmur appreciated. RESPIRATORY: No accessory muscle use. Clear to auscultation. Breath sounds equal bilaterally. GASTROINTESTINAL: Abdomen soft, non-tender, nondistended. Hepatic and splenic margins not palpable. MUSCULOSKELETAL: No obvious deformities. No clubbing. No cyanosis. No edema. NEUROLOGICAL: Awake and alert. No obvious cranial nerve deficits. Motor grossly within normal limits. Normal speech. PSYCHIATRIC: Appropriate mood and affect; insight and judgment normal. Denies suicidal homicidal ideation or audiovisual hallucinations. Data Data Last Documented VS Vital Signs Date Time Temp Pulse Resp B/P Pulse Ox O2 Delivery O2 Flow Rate FiO2 10/11/16 11:07 96 Room Air 10/11/16 10:24 98.5 86 20 150/93 Orders Electrocardiogram (10/11/16 10:59) Basic Metabolic Panel (Bmp) (10/11/16 10:59) Complete Blood Count With Diff (10/11/16 10:59) Prothrombin Time / Inr (Pt) (10/11/16 10:59) Act Partial Throm Time (Ptt) (10/11/16 10:59) Troponin I (10/11/16 10:59) Chest, Single Ap (10/11/16 10:59) Ecg Monitoring (10/11/16 10:59) Oximetry (10/11/16 10:59) Sodium Chloride 0.9% Flush (Ns Flush) (10/11/16 11:00) Al-Mag Hy-Si 40-40-4 Mg/Ml Liq (Mag-Al P (10/11/16 11:00) Lidocaine 2% Viscous (Xylocaine 2% Visco (10/11/16 11:00) Labs Laboratory Tests Test 10/11/16 11:09 White Blood Count 9.6 TH/MM3 Red Blood Count 4.68 MIL/MM3 Hemoglobin 14.4 GM/DL Hematocrit 41.2 % Mean Corpuscular Volume 88.0 FL Mean Corpuscular Hemoglobin 30.8 PG Mean Corpuscular Hemoglobin 35.0 % Concent Red Cell Distribution Width 14.6 % Platelet Count 210 TH/MM3 Mean Platelet Volume 8.7 FL Neutrophils (%) (Auto) 73.7 % Lymphocytes (%) (Auto) 18.5 % Monocytes (%) (Auto) 6.2 % Eosinophils (%) (Auto) 1.3 % Basophils (%) (Auto) 0.3 % Neutrophils # (Auto) 7.1 TH/MM3 Lymphocytes # (Auto) 1.8 TH/MM3 Monocytes # (Auto) 0.6 TH/MM3 Eosinophils # (Auto) 0.1 TH/MM3 Basophils # (Auto) 0.0 TH/MM3 CBC Comment DIFF FINAL Differential Comment Prothrombin Time 11.7 SEC Prothromb Time International 1.1 RATIO Ratio Activated Partial 26.6 SEC Thromboplast Time Sodium Level 139 MEQ/L Potassium Level 3.9 MEQ/L Chloride Level 102 MEQ/L Carbon Dioxide Level 32.1 MEQ/L Anion Gap 5 MEQ/L Blood Urea Nitrogen 14 MG/DL Creatinine 1.22 MG/DL Estimat Glomerular Filtration 66 ML/MIN Rate Random Glucose 100 MG/DL Calcium Level 8.7 MG/DL Troponin I LESS THAN 0.02 NG/ML MDM Medical Decision Making Medical Screen Exam Complete: Yes Emergency Medical Condition: Yes Interpretation(s) EKG shows no sinus rhythm normal axis normal R-wave progression. No concerning ST-T changes. Intervals within normal limits. This normal EKG. Differential Diagnosis ACS unlikely, IL likely, pericarditis, gastritis, gastric enteritis, GERD Narrative Course patient roomed in the emergency department, initial workup including troponin EKG and basic labs are negative. He is given a GI cocktail and on revisit sleeping soundly easily arousable and states his pain is starting to feel better. He is stable for discharge need follow-up the primary care physician or the [facility] [place] clinic. Last 24 hours Impressions Chest X-Ray 10/11/16 1059 Signed Impressions: Service Date/Time: Tuesday, October 11, 2016 11:15 - CONCLUSION: No acute disease. Luis Escalona MD Patient was counseled on smoking cessation and the wrist to health including heart disease. He was encouraged to try quitting. Diagnosis Primary Impression: Chest pain with low risk for cardiac etiology Referrals: Mayda Moore MD Additional Instructions: Follow-up the primary care provider or the [facility] [place] clinic. Med/Other Pt SpecificInfo: Prescription(s) given Scripts Calcium Carbonate (Antacid) (Maalox)600 Mg [id number] Mg CHEW Q8HR PRN (ABDOMINAL PAIN) #30 TAB Prov:Elijah Velarde MD 10/11/16 Disposition: 01 DISCHARGE HOME Condition: Stable Elijah Velarde MD Oct 11, 2016 11:03
[2016-10-11 11:07] VITALS: O2SAT 96
[2016-10-11 11:16] LABS: AUTOMATED NEUTROPHIL # 7.1 TH/MM3 (1.8-7.7); BASOPHIL % 0.3 % (0.0-2.0); EOSINOPHIL # 0.1 TH/MM3 (0-0.4); EOSINOPHIL % 1.3 % (0.0-4.0); HEMATOCRIT 41.2 % (39.0-51.0); HEMO FLAGS DIFF FINAL; LYMPH % 18.5 % (9.0-44.0); LYMPHOCYTE # 1.8 TH/MM3 (1.0-4.8); MEAN CORPUSCULAR HEMOGLOBIN 30.8 PG (27.0-34.0); MONO % 6.2 % (0.0-8.0); NEUT % 73.7 % (16.0-70.0); PLATELET COUNT 210 TH/MM3 (150-450); RED BLOOD COUNT 4.68 MIL/MM3 (4.50-5.90); RED CELL DISTRIBUTION WIDTH 14.6 % (11.6-17.2); WHITE BLOOD COUNT 9.6 TH/MM3 (4.0-11.0)
[2016-10-11 11:26] LABS: APTT (PATIENT) 26.6 SEC (24.3-30.1); INTERNATIONAL NORMALIZED RATIO 1.1 RATIO; PROTHROMBIN TIME - PATIENT 11.7 SEC (9.8-11.6)
[2016-10-11 11:31] LABS: ANION GAP 5 MEQ/L (5-15); BICARBONATE 32.1 MEQ/L (21.0-32.0); BLOOD UREA NITROGEN 14 MG/DL (7-18); CHLORIDE 102 MEQ/L (98-107); GLOMERULAR FILTRATION RATE 66 ML/MIN (>89); POTASSIUM 3.9 MEQ/L (3.5-5.1); SODIUM (NA) 139 MEQ/L (136-145)
--- NOTE | 2016-10-11 11:40 | RADRPT ---
EXAM DATE/TIME: 10/11/2016 11:15 [facility] COMPARISON: CHEST SINGLE AP, August 25, 2013, 20:42. INDICATIONS : Chest pain. MEDICAL HISTORY : None. SURGICAL HISTORY : None. ENCOUNTER: Initial ACUITY: 1 day PAIN SCORE: 0/10 LOCATION: Bilateral chest FINDINGS: A single view of the chest demonstrates the lungs to be symmetrically aerated without evidence of mas s, infiltrate or effusion. The cardiomediastinal contours are unremarkable. Osseous structures are intact. CONCLUSION: No acute disease. Luis Escalona MD on October 11, 2016 at 11:38 Board Certified Radiologist. This report was verified electronically.
[2016-10-11] MEDS ORDERED: MAAL600C CHEW (12:39)
--- NOTE | 2016-10-12 14:30 | EKG ---
Date Performed: 10/11/2016 Time Performed: 11:05:22 PTAGE: 41 years EKG: Sinus rhythm NORMAL ECG Compared to prior tracing no significant change PREVIOUS TRACING : 08/29/2015 07.09 DOCTOR: Waqar Yeh Interpretating Date/Time 10/12/2016 14:26:26
[2016-11-24] MEDS ORDERED: TRAZ50TA12 PO (14:55)
[2016-11-24] MEDS ORDERED: KETO60IN6 IM (15:18)
[2016-11-24] MEDS ORDERED: METH125I2 IM (15:18)
== END 2016-10-11 13:12 | disposition home or self-care (01) ==
LOC: NEPD 10:22
DX: R07.9 Chest pain, unspecified (principal); R11.0 Nausea; F20.9 Schizophrenia, unspecified; Z79.899 Other long term (current) drug therapy
CPT/HCPCS: 71010; 80048; 84484; 85025; 85610; 85730; 93005

== ENCOUNTER 2017-02-05 13:33 | Emergency (ER) | payer OTHER ==
[~2017-02-05] VITALS: Ht 177.8 cm; Wt 93.2 kg
[~2017-02-05 13:33] MED LIST changes: +GABA300C5 PO; -TRAZ100T4 PO; +TRAZ50TA12 PO
[2017-02-05 13:36] VITALS: BP 133/86; PULSE 108; RESP 16; TEMP 98.4; O2SAT 98
[2017-02-05] MEDS ORDERED: IBUPROFEN 800 MG TAB PO ONE (14:15)
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
[2017-02-05] MEDS ORDERED: IBUP800T23 PO (15:09)
== END 2017-02-05 15:25 | disposition home or self-care (01) ==
LOC: NEPK 13:33
DX: S20.212A Contusion of left front wall of thorax, initial encounter (principal); M13.88 Other specified arthritis, other site; K21.9 Gastro-esophageal reflux disease without esophagitis; G40.909 Epilepsy, unspecified, not intractable, without status epilepticus; F25.9 Schizoaffective disorder, unspecified; Z86.73 Personal history of transient ischemic attack (TIA), and cerebral infarction without residual deficits; F20.9 Schizophrenia, unspecified; Y08.09XA Assault by strike by other specified type of sport equipment, initial encounter; Z72.0 Tobacco use
CPT/HCPCS: 71101; 99283

== ENCOUNTER 2017-02-15 08:37 | Observation (INO) | payer OTHER ==
[~2017-02-15 08:37] MED LIST changes: +IBUP800T23 PO
[2017-02-15 08:43] VITALS: BP 145/98; PULSE 78; RESP 16; TEMP 98.4; O2SAT 99
[2017-02-15] MEDS ORDERED: SODIUM CHLORIDE 0.9% FLUSH 10 ML FLUSH IVF PRN (09:00)
[2017-02-15] MEDS ORDERED: SODIUM CHLOR 0.9% 1000 ML INJ 1,000 ML IV SCH (09:00)
--- NOTE | 2017-02-15 09:03 | PD ---
HPI Chief Complaint: Neuro Symptoms/ Deficits Time Seen by Provider: 08:44 Travel History International Travel<30 days: No Contact w/Intl Traveler<30days: No Traveled to known affect area: No History of Present Illness HPI The patient is a 41-year-old male who presents to the emergency department after a possible fall or seizure. According to the family the patient was found on the ground earlier today, they are unsure if he fell or had a seizure. He also states the patient had acute onset of stuttering and are wondering if the patient had a stroke. The patient does have a history of seizure disorder for which he takes Trileptal, previous head injury with surgery , and a history of schizophrenia. The patient currently takes trazodone, Trileptal, Celexa, and Seroquel. The patient is followed at [facility] for his medical problems, does not currently have a neurologist or primary physician. He denies any other focal deficits except for the stuttering. The patient does complain of mild left shoulder pain, but denies any acute weakness of the arms or legs. He denies any visual acuity changes. He denies biting his tongue or urinary incontinence. The patient denies any chest pain, shortness breath, nausea, vomiting, or abdominal pain. PFSH Past Medical History Arthritis: Yes Asthma: No Autoimmune Disease: No Blood Disorders: No Anxiety: No Depression: Yes Heart Rhythm Problems: No Cancer: No Cardiovascular Problems: No High Cholesterol: No Chemotherapy: No Chest Pain: No Congestive Heart Failure: No COPD: No Cerebrovascular Accident: Yes (TIA X 2) Diabetes: No Diminished Hearing: No Endocrine: No Gastrointestinal Disorders: Yes (GERD) GERD: Yes Glaucoma: No Genitourinary: No Headaches: Yes Hepatitis: No Hiatal Hernia: No Hypertension: No Immune Disorder: No Inguinal Hernia: Yes Implanted Vascular Access Dvce: No Kidney Stones: No Musculoskeletal: No Neurologic: Yes (SEIZURE DISORDER, SCHIZOAFFECTIVE) Psychiatric: Yes Reproductive: No Respiratory: No Migraines: Yes Myocardial Infarction: No Radiation Therapy: No Renal Failure: No Schizophrenia: Yes Seizures: Yes Sickle Cell Disease: No Sleep Apnea: No Thyroid Disease: No Ulcer: No PNEUMOCCOCAL Vaccine (Year): 2 Past Surgical History Abdominal Surgery: Yes (hernia repair) AICD: No Cardiac Surgery: No Ear Surgery: No Endocrine Surgery: No Eye Surgery: No Genitourinary Surgery: No Gynecologic Surgery: No Neurologic Surgery: Yes (cranial as a child) Oral Surgery: No Pacemaker: No Thoracic Surgery: No Other Surgery: Yes Social History Alcohol Use: Yes (12 PACK BEER A WEEK) Tobacco Use: Yes Substance Use: No Allergies-Medications (Allergen,Severity, Reaction): Coded Allergies: haloperidol (Unverified Allergy, Severe, MUSCLE SPASMS, 02/15/17) phenytoin (Unverified Allergy, Severe, VISION LOSS, 02/15/17) benztropine (Unverified Adverse Reaction, Severe, MUSCLE SPASMS, 02/15/17) Reported Meds & Prescriptions Reported Meds & Active Scripts Active Ibuprofen 800 Mg Tab 800 Mg PO Q6HR PRN Reported Trazodone (Trazodone HCl) 50 Mg Tab 100 Mg PO HS Seroquel (Quetiapine Fumarate) 100 Mg Tab 100 Mg PO BID Seroquel (Quetiapine Fumarate) 400 Mg Tab 400 Mg PO HS Trileptal (Oxcarbazepine) 300 Mg Tab 300 Mg PO BID Citalopram (Citalopram Hydrobromide) 40 Mg Tab 40 Mg PO DAILY Review of Systems Except as stated in HPI: all other systems reviewed are Neg HENT: No: Headaches Cardiovascular: No: Chest Pain or Discomfort Respiratory: No: Shortness of Breath Gastrointestinal: No: Nausea, Vomiting, Abdominal Pain Genitourinary: No: Incontinence Neurologic: Positive: Seizures, Other (stuttering speech) Psychiatric: Positive: Disorder of Thought (history of schizophrenia) Physical Exam Narrative GENERAL: Awake, alert, nontoxic-appearing 41-year-old male who appears his stated age is in no acute respiratory distress. SKIN: Focused skin assessment warm/dry. HEAD: Old scar on the top of the head. EYES: Pupils equal and round. Pupils are 4 mm bilateral and reactive. EOMs are intact. Patient is able to see fingers at a distance of 2 feet while wearing glasses. ENT: No nasal bleeding or discharge. Mucous membranes pink and moist. No visible trauma to the tongue. NECK: Trachea midline. No JVD. CARDIOVASCULAR: Regular rate and rhythm. No murmur appreciated. RESPIRATORY: No accessory muscle use. Clear to auscultation. Breath sounds equal bilaterally. GASTROINTESTINAL: Abdomen soft, non-tender, nondistended. No rebound tenderness. MUSCULOSKELETAL: No obvious deformities. No clubbing. No cyanosis. No edema. NEUROLOGICAL: Awake and alert. No obvious cranial nerve deficits. Motor grossly within normal limits. Patient has stuttering speech. No drift of the upper or lower extremities. Finger to nose is normal. He is able to follow commands. He is alert and oriented 4. PSYCHIATRIC: Odd affect. Data Data Last Documented VS Vital Signs Date Time Temp Pulse Resp B/P (MAP) Pulse Ox O2 Delivery O2 Flow Rate FiO2 02/15/17 10:31 90 15 125/84 (98) 99 Room Air 02/15/17 08:43 98.4 Orders Orders Electrocardiogram (02/15/17 08:58) Prothrombin Time / Inr (Pt) (02/15/17 08:58) Act Partial Throm Time (Ptt) (02/15/17 08:58) Complete Blood Count With Diff (02/15/17 08:58) Comprehensive Metabolic Panel (02/15/17 08:58) Creatine Kinase (Cpk) (02/15/17 08:58) Troponin I (02/15/17 08:58) Urinalysis - C+S If Indicated (02/15/17 08:58) Ct Brain W/O Iv Contrast(Rout) (02/15/17 08:58) Ecg Monitoring (02/15/17 08:58) Iv Access Insert/Monitor (02/15/17 08:58) Oximetry (02/15/17 08:58) Sodium Chloride 0.9% Flush (Ns Flush) (02/15/17 09:00) Lactic Acid (02/15/17 08:58) Sodium Chlor 0.9% 1000 Ml Inj (Ns 1000 M (02/15/17 09:00) Mri Brain W/O Contrast (02/15/17 ) Labs Laboratory Tests Test 02/15/17 09:00 02/15/17 10:20 White Blood Count 12.8 TH/MM3 Red Blood Count 5.12 MIL/MM3 Hemoglobin 16.0 GM/DL Hematocrit 45.5 % Mean Corpuscular Volume 88.8 FL Mean Corpuscular Hemoglobin 31.3 PG Mean Corpuscular Hemoglobin Concent 35.3 % Red Cell Distribution Width 13.6 % Platelet Count 220 TH/MM3 Mean Platelet Volume 9.8 FL Neutrophils (%) (Auto) 81.0 % Lymphocytes (%) (Auto) 13.2 % Monocytes (%) (Auto) 5.4 % Eosinophils (%) (Auto) 0.2 % Basophils (%) (Auto) 0.2 % Neutrophils # (Auto) 10.3 TH/MM3 Lymphocytes # (Auto) 1.7 TH/MM3 Monocytes # (Auto) 0.7 TH/MM3 Eosinophils # (Auto) 0.0 TH/MM3 Basophils # (Auto) 0.0 TH/MM3 CBC Comment DIFF FINAL Differential Comment Prothrombin Time 11.8 SEC Prothromb Time International Ratio 1.1 RATIO Activated Partial Thromboplast Time 28.6 SEC Blood Urea Nitrogen 9 MG/DL Creatinine 1.25 MG/DL Random Glucose 98 MG/DL Total Protein 7.9 GM/DL Albumin 4.2 GM/DL Calcium Level 9.1 MG/DL Alkaline Phosphatase 80 U/L Aspartate Amino Transf (AST/SGOT) 20 U/L Alanine Aminotransferase (ALT/SGPT) 26 U/L Total Bilirubin 0.4 MG/DL Sodium Level 134 MEQ/L Potassium Level 4.0 MEQ/L Chloride Level 100 MEQ/L Carbon Dioxide Level 27.0 MEQ/L Anion Gap 7 MEQ/L Estimat Glomerular Filtration Rate 64 ML/MIN Lactic Acid Level 1.2 mmol/L Total Creatine Kinase 201 U/L Troponin I LESS THAN 0.02 NG/ML Urine Color LIGHT-YELLOW Urine Turbidity CLEAR Urine pH 6.0 Urine Specific Grace 1.005 Urine Protein NEG mg/dL Urine Glucose (UA) NEG mg/dL Urine Ketones NEG mg/dL Urine Occult Blood NEG Urine Nitrite NEG Urine Bilirubin NEG Urine Urobilinogen LESS THAN 2.0 MG/DL Urine Leukocyte Esterase NEG Urine RBC 1 /hpf Urine WBC 1 /hpf Microscopic Urinalysis Comment CATH-CULT NOT IND MDM Medical Decision Making Medical Screen Exam Complete: Yes Emergency Medical Condition: Yes Medical Record Reviewed: Yes Interpretation(s) EKG reveals sinus tachycardia with a heart rate of 104. Q wave leads 3 and aVF. Laboratory Tests Test 02/15/17 09:00 02/15/17 10:20 White Blood Count 12.8 TH/MM3 Red Blood Count 5.12 MIL/MM3 Hemoglobin 16.0 GM/DL Hematocrit 45.5 % Mean Corpuscular Volume 88.8 FL Mean Corpuscular Hemoglobin 31.3 PG Mean Corpuscular Hemoglobin Concent 35.3 % Red Cell Distribution Width 13.6 % Platelet Count 220 TH/MM3 Mean Platelet Volume 9.8 FL Neutrophils (%) (Auto) 81.0 % Lymphocytes (%) (Auto) 13.2 % Monocytes (%) (Auto) 5.4 % Eosinophils (%) (Auto) 0.2 % Basophils (%) (Auto) 0.2 % Neutrophils # (Auto) 10.3 TH/MM3 Lymphocytes # (Auto) 1.7 TH/MM3 Monocytes # (Auto) 0.7 TH/MM3 Eosinophils # (Auto) 0.0 TH/MM3 Basophils # (Auto) 0.0 TH/MM3 CBC Comment DIFF FINAL Differential Comment Prothrombin Time 11.8 SEC Prothromb Time International Ratio 1.1 RATIO Activated Partial Thromboplast Time 28.6 SEC Blood Urea Nitrogen 9 MG/DL Creatinine 1.25 MG/DL Random Glucose 98 MG/DL Total Protein 7.9 GM/DL Albumin 4.2 GM/DL Calcium Level 9.1 MG/DL Alkaline Phosphatase 80 U/L Aspartate Amino Transf (AST/SGOT) 20 U/L Alanine Aminotransferase (ALT/SGPT) 26 U/L Total Bilirubin 0.4 MG/DL Sodium Level 134 MEQ/L Potassium Level 4.0 MEQ/L Chloride Level 100 MEQ/L Carbon Dioxide Level 27.0 MEQ/L Anion Gap 7 MEQ/L Estimat Glomerular Filtration Rate 64 ML/MIN Lactic Acid Level 1.2 mmol/L Total Creatine Kinase 201 U/L Troponin I LESS THAN 0.02 NG/ML Urine Color LIGHT-YELLOW Urine Turbidity CLEAR Urine pH 6.0 Urine Specific Grace 1.005 Urine Protein NEG mg/dL Urine Glucose (UA) NEG mg/dL Urine Ketones NEG mg/dL Urine Occult Blood NEG Urine Nitrite NEG Urine Bilirubin NEG Urine Urobilinogen LESS THAN 2.0 MG/DL Urine Leukocyte Esterase NEG Urine RBC 1 /hpf Urine WBC 1 /hpf Microscopic Urinalysis Comment CATH-CULT NOT IND Last Impressions Head CT 02/15/17 0858 Signed Impressions: Service Date/Time: Wednesday, February 15, 2017 09:35 - CONCLUSION: Possible hemorrhage measuring less than 5 mm left occipital region. This was not present on the previous study. Omar Solares MD FACR Brain MRI 02/15/17 0000 Signed Impressions: Service Date/Time: Wednesday, February 15, 2017 09:53 - CONCLUSION: 1. No acute hemorrhage or acute intracranial abnormality. 2. Mild chronic small vessel ischemic change. Vidal Thompson Jr., MD Differential Diagnosis Differential diagnosis includes CVA, TIA, intracranial hemorrhage, seizure, schizophrenia, hyponatremia, hypocalcemia. Narrative Course IV was established, labs are drawn and sent, and the patient was placed on cardiac telemetry monitoring and continuous pulse oximetry monitoring. EKG was ordered and interpreted. CT of the brain was obtained. MRI of the brain was obtained. CT the brain reveals a questionable 5 mm occipital bleed. I discussed the patient with Dr. Moseley who states the patient can be admitted to the medical service and may benefit from consultation to neurology, however, there is no indication for acute surgical management consultation with neurosurgery. Labs were unremarkable. MRI the brain revealed no acute hemorrhage or acute intracranial abnormality. The patient was reevaluated, still has stuttering, unsure if this is psychological versus neurologic. Therefore, the patient will be 23 hour observation to the medical service for evaluation by neurology. The patient does not have a primary physician and is followed at [facility] for his other medical needs. The patient is comfortable with this plan of care and disposition. Physician Communication Physician Communication The medical service was paged for 23 hour observation. Diagnosis Primary Impression: Speech abnormality Qualified Codes: R47.89 - Other speech disturbances Admitting Information Admitting Physician Requests: Observation Condition: Stable Josh Cain MD Feb 15, 2017 09:03
[2017-02-15 09:34] LABS: AUTOMATED NEUTROPHIL # 10.3 TH/MM3 (1.8-7.7); BASOPHIL % 0.2 % (0.0-2.0); EOSINOPHIL % 0.2 % (0.0-4.0); HEMATOCRIT 45.5 % (39.0-51.0); HEMO FLAGS DIFF FINAL; LYMPH % 13.2 % (9.0-44.0); LYMPHOCYTE # 1.7 TH/MM3 (1.0-4.8); MEAN CELL VOLUME 88.8 FL (80.0-100.0); MEAN CORPUSCULAR HEMOGLOBIN 31.3 PG (27.0-34.0); MEAN CORPUSCULAR HGB CONC 35.3 % (32.0-36.0); MONO % 5.4 % (0.0-8.0); PLATELET COUNT 220 TH/MM3 (150-450); RED BLOOD COUNT 5.12 MIL/MM3 (4.50-5.90); RED CELL DISTRIBUTION WIDTH 13.6 % (11.6-17.2); WHITE BLOOD COUNT 12.8 TH/MM3 (4.0-11.0)
[2017-02-15 09:45] LABS: APTT (PATIENT) 28.6 SEC (24.3-30.1); INTERNATIONAL NORMALIZED RATIO 1.1 RATIO; PROTHROMBIN TIME - PATIENT 11.8 SEC (9.8-11.6)
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
[2017-02-15 10:01] LABS: ALT (GPT) 26 U/L (12-78)
[2017-02-15 10:04] LABS: ALKALINE PHOSPHATASE 80 U/L (45-117); CREATINE KINASE 201 U/L (39-308); TOTAL BILIRUBIN ADULT 0.4 MG/DL (0.2-1.0)
[2017-02-15 10:06] LABS: ANION GAP 7 MEQ/L (5-15); AST (GOT) 20 U/L (15-37); BLOOD UREA NITROGEN 9 MG/DL (7-18); CHLORIDE 100 MEQ/L (98-107); GLOMERULAR FILTRATION RATE 64 ML/MIN (>89); SODIUM (NA) 134 MEQ/L (136-145)
[2017-02-15 10:31] VITALS: BP 125/84; PULSE 90; RESP 15; O2SAT 99
[2017-02-15 10:36] LABS: BLOOD, URINE NEG (NEG); GLUCOSE,URINE NEG (NEG); KETONE, URINE NEG (NEG); NITRITE,URINE NEG (NEG); URINE COLOR LIGHT-YELLOW (YELLW/STRAW)
[2017-02-15 10:37] LABS: COMMENT (UR) CATH-CULT NOT IND; CULTURE IF INDICATED CATH CULTURE NOT IND
--- NOTE | 2017-02-15 10:44 | RADRPT ---
EXAM DATE/TIME: 02/15/2017 09:53 [facility] COMPARISON: CT BRAIN W/O CONTRAST, February 15, 2017, 9:35. MRI BRAIN W/O CONTRAST, August 29, 2015, 12:17. INDICATIONS : Seizure with slurred speech. MEDICAL HISTORY : None. SURGICAL HISTORY : hernia, brain surgery as a child ENCOUNTER: Initial ACUITY: 1 day PAIN SCORE: 0/10 LOCATION: cranial TECHNIQUE: Multiplanar, multisequence MRI of the brain was performed without contrast. FINDINGS: CEREBRUM: The ventricles are normal for age. No evidence of midline shift, mass lesion, hemorrhage or acute in farction. No extraaxial fluid collections are seen. The pituitary gland and suprasellar cistern are normal in configuration. WHITE MATTER: A few small foci of high flair signal in the periventricular white matter of both cerebral hemisphere s. This is stable. POSTERIOR FOSSA: The cerebellum and brainstem are intact. The 4th ventricle is midline. The cerebellopontine angle is unremarkable. The cerebellar tonsils are normal in position. DIFFUSION IMAGING: No focal areas of restricted diffusion are seen. No evidence of acute infarction. EXTRACRANIAL: The visualized portions of the orbits and paranasal sinuses are unremarkable. CONCLUSION: 1. No acute hemorrhage or acute intracranial abnormality. 2. Mild chronic small vessel ischemic change. Vidal Thompson Jr., MD on February 15, 2017 at 10:34 Board Certified Radiologist. This report was verified electronically.
[2017-02-15 11:00] VITALS: BP 134/68; PULSE 90; RESP 18; O2SAT 97
--- NOTE | 2017-02-15 11:49 | HHI.HP ---
[facility] Service Family Medicine Primary Care Physician Mayda Moore MD Admission Diagnosis stuttering speech, questionable occipital hemorrhage Diagnoses: International Travel<30 Days: No Contact w/Intl Traveler<30days: No Known Affected Area: No History of Present Illness Mr. Barrera is a 41-year-old white male with a past medical history of epilepsy and schizoaffective disorder presenting to the ED today for possible seizure earlier in the day. Patient states that this morning he walked from the bedroom to the kitchen. The next thing he knew he was waking up on the floor. There is no slippery surface in-between his bathroom and kitchen. He is not sure of how much time had passed while he was unconscious. No one else was there to witness him falling. He then took the bus to the hospital. He felt like he usually does when he has a seizure. Upon waking he realized that he had a stutter. This really concerned him. He has not noticed any other changes. He has residual numbness and weakness on his right side since having a TIA in 2006. No loss of bowels/bladder, no biting of tongue, had muscle aches. He was initially diagnosed with epilepsy with [place] 12. He has temporal lobe seizures. His last seizure was one year ago. He's not sure if they are grand mal. He does not see a neurologist because he does not have insurance. Over, he does go to [facility] for treatment for his schizoaffective disorder. Review of Systems Constitutional: DENIES: Fever, Chills, Change in appetite Eyes: COMPLAINS OF: Blurred vision (since the seizure this morning), DENIES: Double Vision Ears, nose, mouth, throat: DENIES: Tinnitus, Vertigo, Running Nose Respiratory: COMPLAINS OF: Cough (2 days ago, dry, first thing in the morning) , DENIES: Wheezing, Shortness of breath Cardiovascular: DENIES: Chest pain, Palpitations, Lower Extremity Edema Gastrointestinal: DENIES: Abdominal pain, Black stools, Bloody stools, Constipation, Diarrhea, Nausea, Vomiting Genitourinary: DENIES: Urinary frequency, Urgency Musculoskeletal: DENIES: Muscle aches Integumentary: DENIES: Rash Hematologic/lymphatic: DENIES: Bruising Neurologic: COMPLAINS OF: Localized weakness, Paresthesias Psychiatric: DENIES: Depression, Hallucinations, Suicidal Ideation, Homicidal Ideation Past Family Social History Past Medical History Schizoaffective disorder Epilepsy 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 Moore Past Surgical History surgery as an for overlapping sutures hernia repair- 1994 Reported Medications Reported Meds & Active Scripts Active Ibuprofen 800 Mg Tab 800 Mg PO Q6HR PRN Reported Trazodone (Trazodone HCl) 50 Mg Tab 100 Mg PO HS Seroquel (Quetiapine Fumarate) 100 Mg Tab 100 Mg PO qD Seroquel (Quetiapine Fumarate) 400 Mg Tab 400 Mg PO HS Trileptal (Oxcarbazepine) 300 Mg Tab 300 Mg PO BID Citalopram (Citalopram Hydrobromide) 40 Mg Tab 40 Mg PO DAILY Allergies: Coded Allergies: haloperidol (Unverified Allergy, Severe, MUSCLE SPASMS, 02/15/17) phenytoin (Unverified Allergy, Severe, VISION LOSS, 02/15/17) benztropine (Unverified Adverse Reaction, Severe, MUSCLE SPASMS, 02/15/17) Family History Mother- remission from Lung cancer, DM Father- drug overdose Social History Lives by himself in [place] in a trailer 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 SKIN: No rashes, ecchymoses or lesions. Cool and dry. HEAD: Atraumatic. Normocephalic. No temporal or scalp tenderness. EYES: Pupils equal round and reactive. Extraocular motions intact. No scleral icterus. No injection or drainage. ENT: Nose without bleeding, purulent drainage or septal hematoma. Throat without erythema, tonsillar hypertrophy or exudate. Uvula midline. Airway patent. NECK: Trachea midline. No JVD or lymphadenopathy. Supple, nontender, no meningeal signs. CARDIOVASCULAR: Regular rate and rhythm without murmurs, gallops, or rubs. RESPIRATORY: Clear to auscultation. Breath sounds equal bilaterally. No wheezes , rales, or rhonchi. GASTROINTESTINAL: Abdomen soft, non-tender, nondistended. No hepato-splenomegaly , or palpable masses. No guarding. MUSCULOSKELETAL: Extremities without clubbing, cyanosis, or edema. No joint tenderness, effusion, or edema noted. No calf tenderness. Negative Homans sign bilaterally. NEUROLOGICAL: Awake and alert. Cranial nerves II through XII intact. Motor and sensory grossly within normal limits. Five out of 5 muscle strength in all muscle groups, except 4/5 in RUE. Decrease sensation on right side of face and RUE. Stuttering speech. Laboratory Laboratory Tests Test 02/15/17 09:00 02/15/17 10:20 White Blood Count 12.8 Red Blood Count 5.12 Hemoglobin 16.0 Hematocrit 45.5 Mean Corpuscular Volume 88.8 Mean Corpuscular Hemoglobin 31.3 Mean Corpuscular Hemoglobin Concent 35.3 Red Cell Distribution Width 13.6 Platelet Count 220 Mean Platelet Volume 9.8 Neutrophils (%) (Auto) 81.0 Lymphocytes (%) (Auto) 13.2 Monocytes (%) (Auto) 5.4 Eosinophils (%) (Auto) 0.2 Basophils (%) (Auto) 0.2 Neutrophils # (Auto) 10.3 Lymphocytes # (Auto) 1.7 Monocytes # (Auto) 0.7 Eosinophils # (Auto) 0.0 Basophils # (Auto) 0.0 CBC Comment DIFF FINAL Differential Comment Prothrombin Time 11.8 Prothromb Time International Ratio 1.1 Activated Partial Thromboplast Time 28.6 Blood Urea Nitrogen 9 Creatinine 1.25 Random Glucose 98 Total Protein 7.9 Albumin 4.2 Calcium Level 9.1 Alkaline Phosphatase 80 Aspartate Amino Transf (AST/SGOT) 20 Alanine Aminotransferase (ALT/SGPT) 26 Total Bilirubin 0.4 Sodium Level 134 Potassium Level 4.0 Chloride Level 100 Carbon Dioxide Level 27.0 Anion Gap 7 Estimat Glomerular Filtration Rate 64 Lactic Acid Level 1.2 Total Creatine Kinase 201 Troponin I LESS THAN 0.02 Urine Color LIGHT-YELLOW Urine Turbidity CLEAR Urine pH 6.0 Urine Specific [place] 1.005 Urine Protein NEG Urine Glucose (UA) NEG Urine Ketones NEG Urine Occult Blood NEG Urine Nitrite NEG Urine Bilirubin NEG Urine Urobilinogen LESS THAN 2.0 Urine Leukocyte Esterase NEG Urine RBC 1 Urine WBC 1 Microscopic Urinalysis Comment CATH-CULT NOT IND Result Diagram: 02/15/17 0900 02/15/17 0900 Imaging Last Impressions Head CT 02/15/17 0858 Signed Impressions: Service Date/Time: Wednesday, February 15, 2017 09:35 - CONCLUSION: Possible hemorrhage measuring less than 5 mm left occipital region. This was not present on the previous study. Omar Solares MD FACR Head Magnetic Resonance Angiography 02/15/17 0000 Signed Impressions: Service Date/Time: Wednesday, February 15, 2017 09:53 - CONCLUSION: Normal examination. Vidal Thompson Jr., MD Brain MRI 02/15/17 0000 Signed Impressions: Service Date/Time: Wednesday, February 15, 2017 09:53 - CONCLUSION: 1. No acute hemorrhage or acute intracranial abnormality. 2. Mild chronic small vessel ischemic change. Vidal Thompson Jr., MD [place] VTE Risk Assessment Caprini VTE Risk Assessment: No/Low Risk (score <= 1) Caprini Risk Assessment Model Point Value = 1 Point Value = 2 Point Value = 3 Point Value = 5 Age 41-60 Minor surgery BMI > 25 kg/m2 Swollen legs Varicose veins or History of unexplained or recurrent spontaneous Oral contraceptives or hormone replacement Sepsis (< 1 month) Serious lung disease, including pneumonia (< 1 month) Abnormal pulmonary function Acute myocardial infarction Congestive heart failure (< 1 month) History of inflammatory bowel disease Medical patient at bed rest Age 61-74 Arthroscopic surgery Major open surgery (> 45 min) Laparoscopic surgery (> 45 min) Malignancy Confined to bed (> 72 hours) Immobilizing plaster cast Central venous access Age >= 75 History of VTE Family history of VTE Factor V Leiden Prothrombin [id number] Lupus anticoagulant Anticardiolipin antibodies Elevated serum homocysteine Heparin-induced thrombocytopenia Other congenital or acquired thrombophilia Stroke (< 1 month) Elective arthroplasty Hip, pelvis, or leg fracture Acute spinal cord injury (< 1 month) Prophylaxis Regimen Total Risk Factor Score Risk Level Prophylaxis Regimen 0-1 Low Early ambulation 2 Moderate Order ONE of the following: *Sequential Compression Device (SCD) *Heparin 5000 units SQ BID 3-4 Higher Order ONE of the following medications: *Heparin 5000 units SQ TID *Enoxaparin/Lovenox 40 mg SQ daily (WT < 150 kg, CrCl > 30 mL/min) *Enoxaparin/Lovenox 30 mg SQ daily (WT < 150 kg, CrCl > 10-29 mL/min) *Enoxaparin/Lovenox 30 mg SQ BID (WT < 150 kg, CrCl > 30 mL/min) AND/OR *Sequential Compression Device (SCD) 5 or more Highest Order ONE of the following medications: *Heparin 5000 units SQ TID (Preferred with Epidurals) *Enoxaparin/Lovenox 40 mg SQ daily (WT < 150 kg, CrCl > 30 mL/min) *Enoxaparin/Lovenox 30 mg SQ daily (WT < 150 kg, CrCl > 10-29 mL/min) *Enoxaparin/Lovenox 30 mg SQ BID (WT < 150 kg, CrCl > 30 mL/min) AND *Sequential Compression Device (SCD) Assessment and Plan Assessment and Plan Mr. Barrera is a 41-year-old male with a past medical history of epilepsy and schizoaffective disorder presenting to the ED for possible seizure. Rule out stroke. He is being admitted for observation. Code Status Full code Discussed Condition With Dr. Lazaro and Dr. Chamberlain Problem List: (1) Seizure ICD Codes: R56.9 - Unspecified convulsions Status: Acute Plan: Patient presents with a possible seizure, however has a new stutter. Rule out stroke. Patient has had previous TIAs. Head CT shows possible hemorrhage measuring less than 5 mm left occipital region. Brain MRI shows No acute hemorrhage or acute intracranial abnormality. Head MRA is normal. -Continue at home seizure medications * Trileptal 300 mg by mouth twice a day * Order Trileptal levels -Ativan as needed (2) Schizoaffective disorder ICD Codes: F25.9 - Schizoaffective disorder, unspecified Status: Chronic Plan: Continue at-home medications * Seroquel * Citalopram * Trazodone (3) FEN Status: Acute Plan: Fluids: Normal saline at 84 mL's per hour Electrolytes: Monitor and replete as needed Nutrition: nothing by mouth Pain management: Tylenol as needed DVT prophylaxis: SCDs Problem Qualifiers (1) Schizoaffective disorder: Qualified Codes: F25.9 - Schizoaffective disorder, unspecified [place],Lissa MD R1 Feb 15, 2017 11:49
[2017-02-15] MEDS ORDERED: SODIUM CHLORIDE 0.9% FLUSH 10 ML FLUSH IV FLUSH PRN (12:15)
[2017-02-15] MEDS ORDERED: ACETAMINOPHEN 325 MG TAB PO PRN (12:15)
[2017-02-15] MEDS ORDERED: SODIUM CHLORIDE 0.9% FLUSH 5 ML FLUSH IV FLUSH PRN (12:30)
[2017-02-15] MEDS ORDERED: GLUCAGON 1 MG/ML VIAL OTHER PRN (12:30)
[2017-02-15] MEDS ORDERED: LORazepam 2 MG/ML VIAL IV PRN (12:30)
[2017-02-15] MEDS ORDERED: ONDANSETRON HCL 4 MG/2 ML VIAL IV PRN (12:30)
[2017-02-15] MEDS ORDERED: DEXTROSE 50% IN WATER 50 ML VIAL(D50) IV PUSH PRN (12:30)
[2017-02-15 13:14] VITALS: BP 144/83
--- NOTE | 2017-02-15 13:44 | RADRPT ---
EXAM DATE/TIME: 02/15/2017 09:53 [facility] COMPARISON: MRA BRAIN W/O CONTRAST, August 29, 2015, 12:17. INDICATIONS : Seizure with slurred speech. MEDICAL HISTORY : None. SURGICAL HISTORY : brain surgery as a child, hernia ENCOUNTER: Initial ACUITY: 1 day PAIN SCORE: 0/10 LOCATION: cranial Please note a normal MRA of the brain does not entirely exclude the possibility of a small aneurysm, nor the possibility of distal intracranial vessel disease. TECHNIQUE: 3D time of flight MRA was performed. Source images, multiplanar STS MIP, and 3D volume MIP reconstru ctions were reviewed. FINDINGS: There is excellent visualization of the major intracranial arteries out to the second-order branch ve ssels. Persistent circulation noted on the right. There is no evidence for aneurysm, vessel kwaku ncation or stenosis, and no evidence for vascular malformation. CONCLUSION: Normal examination. Vidal Thompson Jr., MD on February 15, 2017 at 13:38 Board Certified Radiologist. This report was verified electronically.
[2017-02-15 14:13] VITALS: O2SAT 98
[2017-02-15 14:14] VITALS: BP 142/80; PULSE 75; RESP 20; TEMP 98.1; O2SAT 94
--- NOTE | 2017-02-15 15:05 | MB ---
cc: MATEO HERNANDEZ M.D. DATE OF CONSULTATION: 02/15/2017 HISTORY OF PRESENT ILLNESS The patient is seen through the emergency room because of seizures. Apparently there is a history of a schizoaffective disorder and he may have had epilepsy since age 14. He has been taking Trileptal 300 mg twice a day as far as he can tell me and he follows at [facility] for his psychiatric care and he says that is where he gets care for the seizure/epilepsy syndrome. He takes trazodone a total of 500 mg a day, citalopram 40 mg a day according to the information we have. ALLERGIES 1. HALOPERIDOL. 2. PHENYTOIN. 3. BENZTROPINE. The patient describes that he lives alone. He remembers going to the kitchen after being awake in the morning and then found himself on the floor with subsequent stuttering. He tells me the stuttering is much improved and he thinks it is emotional. NEUROLOGICAL EXAMINATION The neurologic exam was rather benign. He is still stuttering mildly. He is alert and oriented. Hygiene seems to be somewhat poor. He has good strength throughout, though he gave away on the right batch dumper exam. Ocular movements and visual rodriguez are full. Pupils are about the same size and reactive. Reflexes diminished, trace throughout. Plantar response is flexor. LABORATORY White count 12.8, hemoglobin 16.0, platelets 220. Sodium 134. Potassium, BUN and creatinine are normal. Glucose 98. Urinalysis is negative. ASSESSMENT Presumed seizure though difficult to be ascertained. No apparent incontinence and no evidence of tongue injury of the exam. There is a history of epilepsy and schizoaffective disorder, but he does not follow with any medical doctor or neurologist, he only follows with the psychiatric team from the [facility]. RECOMMENDATIONS Continue his usual Trileptal dose, but depending upon work-up will consider increasing it to 300 mg three times a day. I will request a Trileptal level on him and EEG. He already had a CT brain that showed a possible left occipital very small hemorrhage, but the MRI brain showed no acute hemorrhage or other abnormality. MRA head is pending. Thank you for asking us to assist in his care. MD BRAYDEN Duque /1:46 PM /3:01 PM
--- NOTE | 2017-02-15 15:16 | EKG ---
Date Performed: 02/15/2017 Time Performed: 09:25:03 PTAGE: 41 years EKG: SINUS TACHYCARDIA When compared to previous tracing, sinus rate has increased. ABNORMAL RHY THM ECG PREVIOUS TRACING : 10/11/2016 11.05 DOCTOR: Antwan Mckenna Interpretating Date/Time 02/15/2017 15:14:22
--- NOTE | 2017-02-15 15:19 | PD.AMA ---
Against Medical Advice Note Diagnosis: (1) Seizure Discharge Disposition: Against Medical Advice Pt Condition on Discharge: Fair AMA Statement Patient Gallo Barrera has decided to leave the hospital against medical advice. This patient has the capacity to refuse care and understands the risks of leaving, including permanent disability and/or , and has had an opportunity to ask questions about his condition. The patient has been informed that he may return for care at any time, and follow up has been arranged/ advised. Lissa Woody MD R1 Feb 15, 2017 15:19
[2017-02-15] MEDS ORDERED: INSULIN ASPART SUPPLEMENTAL SCALE SQ SCH (16:00)
[2017-02-15] MEDS ORDERED: OXcarbazepine 300 MG TAB PO SCH (21:00)
[2017-02-15] MEDS ORDERED: SODIUM CHLORIDE 0.9% FLUSH 5 ML FLUSH IV FLUSH SCH (21:00)
[2017-02-15] MEDS ORDERED: SODIUM CHLORIDE 0.9% FLUSH 10 ML FLUSH IV FLUSH SCH (21:00)
[2017-02-15] MEDS ORDERED: traZODone HCL 50 MG TAB PO SCH (21:00)
[2017-02-15] MEDS ORDERED: QUEtiapine FUMARATE 200 MG TAB PO SCH (21:00)
[2017-02-16] MEDS ORDERED: QUEtiapine FUMARATE 100 MG TAB PO SCH (09:00)
[2017-02-16] MEDS ORDERED: CITALOPRAM HYDROBROMIDE 40 MG TAB PO SCH (09:00)
--- NOTE | 2017-02-16 09:15 | EKG ---
Date Performed: 02/15/2017 Time Performed: 13:22:27 PTAGE: 41 years EKG: Sinus rhythm NORMAL ECG PREVIOUS TRACING : 02/15/2017 09.25 Compared to prior tracing no significant change DOCTOR: Julito Rankin Interpretating Date/Time 02/16/2017 09:13:23
== END 2017-02-15 15:24 | disposition left against medical advice (07) ==
LOC: NEPC 08:37 → NEDA 11:16 → NEPGCP 13:38
PROVIDERS: ADMIT Family Medicine; ATTEND Family Medicine
DX: R56.9 Unspecified convulsions (principal); F25.9 Schizoaffective disorder, unspecified; K21.9 Gastro-esophageal reflux disease without esophagitis; Z86.73 Personal history of transient ischemic attack (TIA), and cerebral infarction without residual deficits; Z79.899 Other long term (current) drug therapy
CPT/HCPCS: 70450; 70544; 70551; 80053; 81001; 82550; 83605; 84484; 85025; 85610; 85730; 93005; 99285; G0378; J7030

== ENCOUNTER 2017-02-21 01:46 | Inpatient (IN) | payer OTHER ==
[2017-02-21] VITALS (13 sets, daily range): BP systolic 124–150; BP diastolic 75–93; PULSE 52–83; RESP 17–18; TEMP 97–98.3; O2SAT 93–98
[~2017-02-21] VITALS: Ht 177.8 cm; Wt 87.0 kg
[~2017-02-21 01:46] MED LIST changes: -GABA300C5 PO
[2017-02-21] MEDS ORDERED: SODIUM CHLORIDE 0.9% FLUSH 10 ML FLUSH IVF PRN (02:15)
--- NOTE | 2017-02-21 02:47 | RADRPT ---
EXAM DATE/TIME: 02/21/2017 02:33 [facility] COMPARISON: No previous studies available for comparison. INDICATIONS : Persistent right arm tingling and headache. RADIATION DOSE: 60.95 CTDIvol (mGy) MEDICAL HISTORY : Hypertension. Seizures. SURGICAL HISTORY : Craniotomy. as patient had cranial suture surgery ENCOUNTER: Subsequent ACUITY: 1 week PAIN SCALE: 4/10 LOCATION: Right cranial and arm TECHNIQUE: Multiple contiguous axial images were obtained of the head. Using automated exposure control and adj ustment of the mA and/or kV according to patient size, radiation dose was kept as low as reasonably a chievable to obtain optimal diagnostic quality images. DICOM format image data is available electro nically for review and comparison. FINDINGS: CEREBRUM: The ventricles are normal for age. No evidence of midline shift, mass lesion, hemorrhage or acute in farction. No extra-axial fluid collections are seen. POSTERIOR FOSSA: The cerebellum and brainstem are intact. The 4th ventricle is midline. The cerebellopontine angle i s unremarkable. EXTRACRANIAL: The visualized portion of the orbits is intact. SKULL: The calvaria is intact. No evidence of skull fracture. CONCLUSION: 1. No acute intracranial abnormalities. 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 Shahab Arias MD on February 21, 2017 at 2:43 Board Certified Radiologist. This report was verified electronically.
[2017-02-21 02:56] LABS: BLOOD, URINE NEG (NEG); GLUCOSE,URINE NEG (NEG); KETONE, URINE TRACE mg/dL (NEG); NITRITE,URINE NEG (NEG); PH, URINE 5.5 (5.0-8.5)
[2017-02-21 02:59] LABS: AUTOMATED NEUTROPHIL # 6.3 TH/MM3 (1.8-7.7); BASOPHIL # 0.1 TH/MM3 (0-0.2); BASOPHIL % 0.6 % (0.0-2.0); EOSINOPHIL # 0.3 TH/MM3 (0-0.4); EOSINOPHIL % 3.1 % (0.0-4.0); HEMATOCRIT 43.2 % (39.0-51.0); HEMO FLAGS DIFF FINAL; LYMPH % 23.9 % (9.0-44.0); LYMPHOCYTE # 2.2 TH/MM3 (1.0-4.8); MEAN CELL VOLUME 88.4 FL (80.0-100.0); MEAN CORPUSCULAR HEMOGLOBIN 29.9 PG (27.0-34.0); MEAN CORPUSCULAR HGB CONC 33.9 % (32.0-36.0); MONO % 5.3 % (0.0-8.0); NEUT % 67.1 % (16.0-70.0); PLATELET COUNT 219 TH/MM3 (150-450); RED BLOOD COUNT 4.89 MIL/MM3 (4.50-5.90); RED CELL DISTRIBUTION WIDTH 12.9 % (11.6-17.2); WHITE BLOOD COUNT 9.4 TH/MM3 (4.0-11.0)
[2017-02-21 03:02] LABS: COMMENT (UR) CULT NOT INDICATED; CULTURE IF INDICATED CULT NOT INDICATED; RBC, URINE 0-2 /hpf (0-3); SQUAMOUS EPITHELIAL CELL URINE 0-5 /hpf (0-5); URINE COLOR YELLOW (YELLW/STRAW); WBC, URINE 0-2 /hpf (0-5)
[2017-02-21 03:04] LABS: CHLORIDE 103 MEQ/L (98-107); POTASSIUM 3.9 MEQ/L (3.5-5.1); SODIUM (NA) 139 MEQ/L (136-145)
[2017-02-21 03:08] LABS: ANION GAP 5 MEQ/L (5-15); APTT (PATIENT) 26.9 SEC (24.3-30.1); BICARBONATE 31.1 MEQ/L (21.0-32.0); BLOOD UREA NITROGEN 7 MG/DL (7-18); PROTHROMBIN TIME - PATIENT 10.8 SEC (9.8-11.6)
[2017-02-21 03:11] LABS: ALT (GPT) 23 U/L (12-78); AST (GOT) 18 U/L (15-37); GLOMERULAR FILTRATION RATE 75 ML/MIN (>89)
[2017-02-21 03:12] LABS: TOTAL BILIRUBIN ADULT 0.2 MG/DL (0.2-1.0)
[2017-02-21 03:14] LABS: ALKALINE PHOSPHATASE 68 U/L (45-117)
--- NOTE | 2017-02-21 03:25 | PD ---
HPI Chief Complaint: Neuro Symptoms/ Deficits Time Seen by Provider: 02:15 Travel History International Travel<30 days: No Contact w/Intl Traveler<30days: No Traveled to known affect area: No History of Present Illness HPI The patient is a 41-year-old male that was admitted to [facility] for neurologic workup, there is a question of intracranial bleed. He signed out AMA and comes in again in the middle of the night tonight's stating that he has problem with right arm weakness and right leg weakness and is dragging his right leg. He states he has had right arm and right leg weakness before but is worse than it has been in the past. He does have a history of schizoaffective disorder and may have had epilepsy since age 14. He also complains of a headache which she describes as a burning sensation in the mid occipital area like it is "on fire". He states he also has slurred and stuttering speech. He denies any fever or nausea. In the hospital he had a CT brain that showed a possible left occipital hemorrhage that was very small but the MRI of the brain showed no acute hemorrhage or other abnormality. The MRA of the head was normal. PFSH Past Medical History Arthritis: Yes Asthma: No Autoimmune Disease: No Blood Disorders: No Anxiety: No Depression: Yes (mild) Heart Rhythm Problems: No Cancer: No Cardiovascular Problems: No High Cholesterol: No Chemotherapy: No Chest Pain: No Congestive Heart Failure: No COPD: No Cerebrovascular Accident: Yes Diabetes: No Diminished Hearing: No Endocrine: No Gastrointestinal Disorders: Yes (GERD) GERD: Yes Glaucoma: No Genitourinary: No Headaches: Yes Hepatitis: No Hiatal Hernia: No Hypertension: No Immune Disorder: No Inguinal Hernia: Yes Implanted Vascular Access Dvce: No Kidney Stones: No Musculoskeletal: Yes (arthritis in spine) Neurologic: Yes (SEIZURE DISORDER, SCHIZOAFFECTIVE disorder) Psychiatric: Yes (schizoaffective disorder) Reproductive: No Respiratory: No Immunizations Current: No Migraines: Yes Myocardial Infarction: No Radiation Therapy: No Renal Failure: No Schizophrenia: Yes Seizures: Yes Sickle Cell Disease: No Sleep Apnea: No Thyroid Disease: No Ulcer: No Tetanus Vaccination: < 5 Years Influenza Vaccination: No PNEUMOCCOCAL Vaccine (Year): 2 Past Surgical History Abdominal Surgery: Yes (hernia repair) AICD: No Cardiac Surgery: No Ear Surgery: No Endocrine Surgery: No Eye Surgery: No Genitourinary Surgery: No Gynecologic Surgery: No Insulin Pump: No Neurologic Surgery: Yes ( cranial suture surgery) Oral Surgery: No Pacemaker: No Thoracic Surgery: No Other Surgery: Yes (HERNIA REPAIR, intracranial operation at 1.5 years old) Social History Alcohol Use: Yes (occasionally ) Tobacco Use: Yes Substance Use: No Allergies-Medications (Allergen,Severity, Reaction): Coded Allergies: haloperidol (Unverified Allergy, Severe, MUSCLE SPASMS, 02/21/17) phenytoin (Unverified Allergy, Severe, VISION LOSS, 02/21/17) benztropine (Unverified Adverse Reaction, Severe, MUSCLE SPASMS, 02/21/17) Reported Meds & Prescriptions Reported Meds & Active Scripts Active Ibuprofen 800 Mg Tab 800 Mg PO Q6HR PRN Reported Trazodone (Trazodone HCl) 50 Mg Tab 100 Mg PO HS Seroquel (Quetiapine Fumarate) 100 Mg Tab 100 Mg PO BID Seroquel (Quetiapine Fumarate) 400 Mg Tab 400 Mg PO HS Trileptal (Oxcarbazepine) 300 Mg Tab 300 Mg PO BID Citalopram (Citalopram Hydrobromide) 40 Mg Tab 40 Mg PO DAILY Review of Systems Except as stated in HPI: all other systems reviewed are Neg Physical Exam Narrative GENERAL: The patient is alert and oriented 3. SKIN: Focused skin assessment warm/dry. HEAD: Atraumatic. Normocephalic. EYES: Pupils equal and round. No scleral icterus. No injection or drainage. ENT: No nasal bleeding or discharge. Mucous membranes pink and moist. NECK: Trachea midline. No JVD. CARDIOVASCULAR: Regular rate and rhythm. No murmur appreciated. RESPIRATORY: No accessory muscle use. Clear to auscultation. Breath sounds equal bilaterally. GASTROINTESTINAL: Abdomen soft, non-tender, nondistended. Hepatic and splenic margins not palpable. MUSCULOSKELETAL: No obvious deformities. No clubbing. No cyanosis. No edema. NEUROLOGICAL: Awake and alert. No obvious cranial nerve deficits. Motor shows a right arm and right leg weakness which is very slight. Normal speech with the patient does not feel that this is his normal speech, that it is slightly slurred. PSYCHIATRIC: Appropriate mood and affect; insight and judgment normal. Data Data Last Documented VS Vital Signs Date Time Temp Pulse Resp B/P (MAP) Pulse Ox O2 Delivery O2 Flow Rate FiO2 02/21/17 02:55 74 18 134/78 (96) 98 Room Air 02/21/17 02:09 98.2 Orders Orders Electrocardiogram (02/21/17 02:15) Prothrombin Time / Inr (Pt) (02/21/17 02:15) Act Partial Throm Time (Ptt) (02/21/17 02:15) Complete Blood Count With Diff (02/21/17 02:15) Comprehensive Metabolic Panel (02/21/17 02:15) Troponin I (02/21/17 02:15) Urinalysis - C+S If Indicated (02/21/17 02:15) Ct Brain W/O Iv Contrast(Rout) (02/21/17 02:15) Ecg Monitoring (02/21/17 02:15) Iv Access Insert/Monitor (02/21/17 02:15) Oximetry (02/21/17 02:15) Sodium Chloride 0.9% Flush (Ns Flush) (02/21/17 02:15) Labs Laboratory Tests Test 02/21/17 02:45 White Blood Count 9.4 TH/MM3 Red Blood Count 4.89 MIL/MM3 Hemoglobin 14.6 GM/DL Hematocrit 43.2 % Mean Corpuscular Volume 88.4 FL Mean Corpuscular Hemoglobin 29.9 PG Mean Corpuscular Hemoglobin Concent 33.9 % Red Cell Distribution Width 12.9 % Platelet Count 219 TH/MM3 Mean Platelet Volume 9.3 FL Neutrophils (%) (Auto) 67.1 % Lymphocytes (%) (Auto) 23.9 % Monocytes (%) (Auto) 5.3 % Eosinophils (%) (Auto) 3.1 % Basophils (%) (Auto) 0.6 % Neutrophils # (Auto) 6.3 TH/MM3 Lymphocytes # (Auto) 2.2 TH/MM3 Monocytes # (Auto) 0.5 TH/MM3 Eosinophils # (Auto) 0.3 TH/MM3 Basophils # (Auto) 0.1 TH/MM3 CBC Comment DIFF FINAL Differential Comment Prothrombin Time 10.8 SEC Prothromb Time International Ratio 1.0 RATIO Activated Partial Thromboplast Time 26.9 SEC Urine Color YELLOW Urine Turbidity CLEAR Urine pH 5.5 Urine Specific [place] 1.021 Urine Protein NEG mg/dL Urine Glucose (UA) NEG mg/dL Urine Ketones TRACE mg/dL Urine Occult Blood NEG Urine Nitrite NEG Urine Bilirubin NEG Urine Leukocyte Esterase NEG Urine RBC 0-2 /hpf Urine WBC 0-2 /hpf Urine Squamous Epithelial Cells 0-5 /hpf Urine Bacteria NONE /hpf Microscopic Urinalysis Comment CULT NOT INDICATED Blood Urea Nitrogen 7 MG/DL Creatinine 1.10 MG/DL Random Glucose 110 MG/DL Total Protein 7.3 GM/DL Albumin 3.7 GM/DL Calcium Level 8.6 MG/DL Alkaline Phosphatase 68 U/L Aspartate Amino Transf (AST/SGOT) 18 U/L Alanine Aminotransferase (ALT/SGPT) 23 U/L Total Bilirubin 0.2 MG/DL Sodium Level 139 MEQ/L Potassium Level 3.9 MEQ/L Chloride Level 103 MEQ/L Carbon Dioxide Level 31.1 MEQ/L Anion Gap 5 MEQ/L Estimat Glomerular Filtration Rate 75 ML/MIN Troponin I LESS THAN 0.02 NG/ML MDM Medical Decision Making Medical Screen Exam Complete: Yes Emergency Medical Condition: Yes Medical Record Reviewed: Yes Interpretation(s) The CT brain shows no acute intracranial abnormality, metallic sutures noted the vertex presumably related to prior craniosynostosis surgery. The complete metabolic profile shows a GFR 75 but is otherwise normal. The troponin I is normal. The CBC is normal. The urinalysis shows trace ketones but is otherwise normal and culture is not indicated. The coagulation profile is normal. The EKG shows sinus rhythm with a rate of 65 and is completely normal. Differential Diagnosis Intracranial bleed, ischemic CVA, schizophrenia with conversion reaction, seizure disorder, noncompliance to admission Narrative Course The patient has a constellation of symptoms that suggest ischemic CVA. His CT brain tonight did not show any bleed. His workup apparently was incomplete. Because he is schizophrenic his history is somewhat unreliable. Plan: The patient will be admitted here to [place] to Dr. Christopher, I discussed the patient with her. Physician Communication Physician Communication I discussed the patient with Dr. Christopher, the patient will be admitted to her. Diagnosis Primary Impression: CVA (cerebral vascular accident) Admitting Information Admitting Physician Requests: Alec Anthony MD Feb 21, 2017 03:25
[2017-02-21] MEDS ORDERED: ACETAMINOPHEN 325 MG TAB PO PRN (04:00)
[2017-02-21] MEDS ORDERED: LACTULOSE SYRUP 20 GM/30 ML CUP PO PRN (04:00)
[2017-02-21] MEDS ORDERED: ONDANSETRON HCL 4 MG/2 ML VIAL IVP PRN (04:00)
[2017-02-21] MEDS ORDERED: MAGNESIUM HYDROXIDE SUSP 30 ML CUP PO PRN (04:00)
[2017-02-21] MEDS ORDERED: BISACODYL 10 MG SUPP RECTAL PRN (04:00)
[2017-02-21] MEDS ORDERED: SODIUM CHLORIDE 0.9% FLUSH 10 ML FLUSH IV FLUSH PRN (04:00)
[2017-02-21] MEDS ORDERED: ACETAMINOPHEN/HYDROcodone 325 MG/5 MG TAB PO PRN (04:00)
[2017-02-21] MEDS ORDERED: SENNOSIDES 8.6 MG TAB PO PRN (04:00)
[2017-02-21] MEDS: SODIUM CHLOR 0.9% 1000 ML INJ 1,000 ML IV SCH ×3 (04:24→23:46)
--- NOTE | 2017-02-21 08:28 | HHI.HP ---
[facility] Mayda Moore MD Admission Diagnosis CVA Diagnoses: (1) CVA (cerebral vascular accident) Diagnosis: Principal (2) Seizure Diagnosis: Principal Chief Complaint: Persistent neurological problems, cephalgia Travel History International Travel<30 Days: No Contact w/Intl Traveler <30 Da: No Traveled to Known Affected Are: No History of Present Illness Written by Ej Cosme, acting as scribe for Dr. Jorge on 02/21/17 at 08: 16. 41 year-old male with known history of seizures, TIA, schizoaffective disorder, chronic back pain who presented to hospital because of persistent neurological symptoms. Patient states that his symptoms started approximately one week ago when he got out of bed he had a syncopal episode where he found himself lying on the floor and didn't know how he got there. After that he was having blurred vision, stuttering speech, paresthesia in the right arm, he had problems ambulating with some disequilibrium and cephalgia. Patient came to the emergency department at that time and was admitted to the residents service. Patient states that there was some episode with his meal and because he was not able to eat he left the hospital AGAINST MEDICAL ADVICE. Patient states that he went home and he had been having a persistent headache, he still had paresthesia in his right arm. He had been taken Excedrin on a daily basis without any improvement. He indicates his headache was 6/10 on a pain scale. Patient states that he was watching football yesterday and there is a 2 hour period where he did not know what happened, he does not know if he had another syncopal episode, seizure or fell asleep. Because his headache would not go away he came back to the hospital for evaluation. Patient has CT scan done in the emergency department and there was no acute intracranial abnormality. Is recommended by ER physician the patient be admitted for further evaluation and management. Review of Systems Neurologic: COMPLAINS OF: Abnormal gait, Headache, Localized weakness, Paresthesias, Seizures, Speech Problems Except as stated in HPI: all other systems reviewed are Neg Past Family Social History Past Medical History Schizoaffective disorder Temporal seizures with symptoms of lightheadedness and syncope History TIA Chronic back pain Past Surgical History Intracranial surgery when he was 3 one half years old Abdominal hernia repair Reported Medications Reported Meds & Active Scripts Active Ibuprofen 800 Mg Tab 800 Mg PO Q6HR PRN Reported Trazodone (Trazodone HCl) 50 Mg Tab 100 Mg PO HS when necessary for insomnia Seroquel (Quetiapine Fumarate) 100 Mg Tab 100 Mg PO daily Seroquel (Quetiapine Fumarate) 400 Mg Tab 400 Mg PO HS Trileptal (Oxcarbazepine) 300 Mg Tab 300 Mg PO BID Citalopram (Citalopram Hydrobromide) 40 Mg Tab 40 Mg PO DAILY Allergies: Coded Allergies: haloperidol (Unverified Allergy, Severe, MUSCLE SPASMS, 02/21/17) phenytoin (Unverified Allergy, Severe, VISION LOSS, 02/21/17) benztropine (Unverified Adverse Reaction, Severe, MUSCLE SPASMS, 02/21/17) Family History Reviewed is significant for father at age 44 from drug overdose, mother still alive at age 59 with stage III lung cancer, diabetes Social History Patient states that he smoked 6 cigarettes a day since he was 16 years old. Does drink alcohol occasionally. Denies any illicit drugs Physical Exam Vital Signs Vital Signs Date Time Temp Pulse Resp B/P (MAP) Pulse Ox O2 Delivery O2 Flow Rate FiO2 02/21/17 07:10 98.3 61 17 132/93 (106) 98 02/21/17 07:09 Room Air 02/21/17 05:59 70 18 124/87 (99) 98 Room Air 02/21/17 04:02 76 18 131/78 (95) 98 Room Air 02/21/17 02:55 74 18 134/78 (96) 98 Room Air 02/21/17 02:18 18 98 02/21/17 02:13 77 18 98 Room Air 02/21/17 02:09 98.2 77 18 146/75 (98) 98 02/21/17 01:52 98.2 78 18 137/87 (104) 98 Physical Exam GENERAL: Well-developed, well-nourished, in no acute distress. alert and orientated HEENT: Head is normocephalic without any lesions or masses noted. Facial features are symmetric. Eyes: Pupils equal round reactive to light. Extraocular muscles are intact. Conjunctivae were clear. Oropharyngeal: Pharynx without any erythema edema. Tongue is midline without deviation. Buccal mucosa is moist without any masses or lesions NECK: Supple without any masses. Trachea midline no deviation. No JVD, no bruits are appreciated CARDIAC: Regular rhythm, regular rate. S1/S2 are heard. No murmurs gallops or rubs. LUNGS: Clear to auscultation bilaterally. No wheeze, rhonchi or rales. No use of accessory muscles on inspiration or expiration. ABDOMEN: Soft, nontender. Nondistended. Bowel sounds heard in all 4 quadrants. No organomegaly or masses. Negative rebound, negative guarding EXTREMITIES: No edema, pulses are equal bilaterally. No cyanosis or clubbing NEUROLOGY: Mood and affect appear appropriate. Cranial nerves II through XII grossly intact. Muscle strength 5/5 in upper and lower extremities bilaterally. Deep tendon reflexes are 2+ in upper and lower extremities bilaterally. Laboratory Laboratory Tests Test 02/21/17 02:45 White Blood Count 9.4 Red Blood Count 4.89 Hemoglobin 14.6 Hematocrit 43.2 Mean Corpuscular Volume 88.4 Mean Corpuscular Hemoglobin 29.9 Mean Corpuscular Hemoglobin Concent 33.9 Red Cell Distribution Width 12.9 Platelet Count 219 Mean Platelet Volume 9.3 Neutrophils (%) (Auto) 67.1 Lymphocytes (%) (Auto) 23.9 Monocytes (%) (Auto) 5.3 Eosinophils (%) (Auto) 3.1 Basophils (%) (Auto) 0.6 Neutrophils # (Auto) 6.3 Lymphocytes # (Auto) 2.2 Monocytes # (Auto) 0.5 Eosinophils # (Auto) 0.3 Basophils # (Auto) 0.1 CBC Comment DIFF FINAL Differential Comment Prothrombin Time 10.8 Prothromb Time International Ratio 1.0 Activated Partial Thromboplast Time 26.9 Urine Color YELLOW Urine Turbidity CLEAR Urine pH 5.5 Urine Specific [place] 1.021 Urine Protein NEG Urine Glucose (UA) NEG Urine Ketones TRACE Urine Occult Blood NEG Urine Nitrite NEG Urine Bilirubin NEG Urine Leukocyte Esterase NEG Urine RBC 0-2 Urine WBC 0-2 Urine Squamous Epithelial Cells 0-5 Urine Bacteria NONE Microscopic Urinalysis Comment CULT NOT INDICATED Blood Urea Nitrogen 7 Creatinine 1.10 Random Glucose 110 Total Protein 7.3 Albumin 3.7 Calcium Level 8.6 Alkaline Phosphatase 68 Aspartate Amino Transf (AST/SGOT) 18 Alanine Aminotransferase (ALT/SGPT) 23 Total Bilirubin 0.2 Sodium Level 139 Potassium Level 3.9 Chloride Level 103 Carbon Dioxide Level 31.1 Anion Gap 5 Estimat Glomerular Filtration Rate 75 Troponin I LESS THAN 0.02 Urine Opiates Screen NEG Urine Barbiturates Screen NEG Urine Amphetamines Screen NEG Urine Benzodiazepines Screen NEG Urine Cocaine Screen NEG Urine Cannabinoids Screen NEG Result Diagram: 02/21/1724402/21/17244 Imaging Last Impressions Head CT 02/21/17214 Signed Impressions: Service Date/Time: Tuesday, February 21, 2017 02:33 - CONCLUSION: 1. No acute intracranial abnormalities. 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 MD Saw Rider VTE Risk Assessment Saw VTE Risk Assessment: Mod/High Risk (score >= 2) Caprini Risk Assessment Model Point Value = 1 Point Value = 2 Point Value = 3 Point Value = 5 Age 41-60 Minor surgery BMI > 25 kg/m2 Swollen legs Varicose veins or History of unexplained or recurrent spontaneous Oral contraceptives or hormone replacement Sepsis (< 1 month) Serious lung disease, including pneumonia (< 1 month) Abnormal pulmonary function Acute myocardial infarction Congestive heart failure (< 1 month) History of inflammatory bowel disease Medical patient at bed rest Age 61-74 Arthroscopic surgery Major open surgery (> 45 min) Laparoscopic surgery (> 45 min) Malignancy Confined to bed (> 72 hours) Immobilizing plaster cast Central venous access Age >= 75 History of VTE Family history of VTE Factor V Leiden Prothrombin [id number] Lupus anticoagulant Anticardiolipin antibodies Elevated serum homocysteine Heparin-induced thrombocytopenia Other congenital or acquired thrombophilia Stroke (< 1 month) Elective arthroplasty Hip, pelvis, or leg fracture Acute spinal cord injury (< 1 month) Prophylaxis Regimen Total Risk Factor Score Risk Level Prophylaxis Regimen 0-1 Low Early ambulation 2 Moderate Order ONE of the following: *Sequential Compression Device (SCD) *Heparin 5000 units SQ BID 3-4 Higher Order ONE of the following medications: *Heparin 5000 units SQ TID *Enoxaparin/Lovenox 40 mg SQ daily (WT < 150 kg, CrCl > 30 mL/min) *Enoxaparin/Lovenox 30 mg SQ daily (WT < 150 kg, CrCl > 10-29 mL/min) *Enoxaparin/Lovenox 30 mg SQ BID (WT < 150 kg, CrCl > 30 mL/min) AND/OR *Sequential Compression Device (SCD) 5 or more Highest Order ONE of the following medications: *Heparin 5000 units SQ TID (Preferred with Epidurals) *Enoxaparin/Lovenox 40 mg SQ daily (WT < 150 kg, CrCl > 30 mL/min) *Enoxaparin/Lovenox 30 mg SQ daily (WT < 150 kg, CrCl > 10-29 mL/min) *Enoxaparin/Lovenox 30 mg SQ BID (WT < 150 kg, CrCl > 30 mL/min) AND *Sequential Compression Device (SCD) Assessment and Plan Problem List: (1) CVA (cerebral vascular accident) ICD Code: I63.9 - Cerebral infarction, unspecified Status: Acute Plan: Patient presented with persistent neurological symptoms for one week to include syncope, alert vision, that her speech, paresthesia in right arm, disequilibrium, persistent cephalgia. Patient did leave AGAINST MEDICAL ADVICE so we can go while undergoing stroke workup. Follow-up CT week after symptoms started still is unremarkable for any acute CVA. Neurology consulted for further recommendations. Await their recommendations. Physical therapy evaluation, (2) Seizure ICD Code: R56.9 - Unspecified convulsions Status: Acute Plan: Patient with signs of possible seizures with syncope, possible aura. Will obtain EEG, continue patient's antiseizure medication. (3) Schizoaffective disorder ICD Code: F25.9 - Schizoaffective disorder, unspecified Status: Chronic Plan: Continue patient's home medications Assessment and Plan DVT prevention: Sequential compression devices Physician Certification 2 Midnight Certification Type: Admission for Inpatient Services Order for Inpatient Services The services are ordered in accordance with Medicare regulations or non- Medicare payer requirements, as applicable. In the case of services not specified as inpatient-only, they are appropriately provided as inpatient services in accordance with the 2-midnight benchmark. Estimated LOS (days): 2 days is the estimated time the patient will need to remain in the hospital, assuming treatment plan goals are met and no additional complications. Post-Hospital Plan: Not yet determined Medical Decision Making Impression and Plan This note was transcribed by kathy farrell. I, Dr. Lavonne Jorge personally performed the history, physical exam, and medical decision making; and confirmed the accuracy of the information in the transcribed note. will check eeg, neuro eval r/o cva Authenticated by Dr. Lavonne Jorge on 02/21/17 at 08:29. Ej Cosme Feb 21, 2017 08:28 Lavonne Jorge MD Feb 21, 2017 08:30
[2017-02-21] MEDS: SODIUM CHLORIDE 0.9% FLUSH 10 ML FLUSH IV FLUSH SCH ×2 (09:00→21:59)
--- NOTE | 2017-02-21 09:00 | EKG ---
Date Performed: 02/21/2017 Time Performed: 02:29:32 PTAGE: 41 years EKG: Sinus rhythm NORMAL ECG PREVIOUS TRACING : 02/15/2017 13.22 DOCTOR: Todd Morrison Interpretating Date/Time 02/21/2017 08:59:20
[2017-02-21] MEDS: DOCUSATE SODIUM 50 MG/SENNA 8.6 MG TAB PO SCH ×2 (09:48→21:58)
[2017-02-21] MEDS: CITALOPRAM HYDROBROMIDE 40 MG TAB PO SCH (09:48)
[2017-02-21] MEDS: ACETAMINOPHEN/HYDROcodone 325 MG/10 MG TAB PO PRN (10:06)
[2017-02-21] MEDS: OXcarbazepine 300 MG TAB PO SCH ×2 (10:06→21:58)
--- NOTE | 2017-02-21 10:40 | MB ---
cc: JUAN JOSE KUNZ M.D. DATE OF CONSULTATION: 02/21/2017. REASON FOR CONSULTATION: Syncope versus stroke. HISTORY OF PRESENT ILLNESS: The patient is a 41-year-old man with a history of seizures, TIA, schizoaffective disorder, chronic back pain who comes in because of having a syncopal episode. He actually went AMA from the main hospital and came back to [place]. He has a persistent headache as well and tingling and weakness in the right arm. He states he does not usually get headaches. He states he found himself lying on the floor for maybe 2 hours but he also has a history of epilepsy. Usually before seizure, he would have some dizziness, lightheadedness. He is on Trileptal 300 mg twice a day. He has had epilepsy since his early teen years. PAST MEDICAL HISTORY: As stated. HOME MEDICATIONS: 1. Trazodone. 2. Seroquel. 3. Trileptal. 4. Citalopram. ALLERGIES: 1. HALDOL. 2. PHENYTOIN. 3. BENZTROPINE. FAMILY HISTORY: Drug overdose in the father at 44. The mother is 59 with stage III lung cancer and diabetes. SOCIAL HISTORY: He smoked six cigarettes a day since 16. Drinks alcohol occasionally. No illicit drugs. EXAMINATION: VITAL SIGNS: On exam his vitals temperature 97, pulse 57, respiratory rate 16, blood pressure 144/92. NECK: Neck is supple. No appreciable bruits. HEART: Regular. NEUROLOGICAL EXAMINATION: He is awake and alert. He is oriented. Speech is normal. Pupils reactive. Face symmetrical. Tongue midline. 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 sensory is decreased on the right to light touch compared to the left. There is no leg lag. Strength is normal. Toes are downgoing. Cerebellar is normal. Gait is withheld. LABORATORY DATA: CBC is normal. Chemistries: Glucose 110, GFR 75. Coag panel was unremarkable. Toxicology negative. Urine negative. IMAGING STUDIES: CT head was unremarkable. IMPRESSION: TIA / stroke versus seizure versus syncope in a 41-year-old man. RECOMMENDATIONS: 1. Imaging of the brain MRI. 2. Will get an MRA cachil dehe of [place] and carotids. 3. Get an echocardiogram. 4. I would put him on some aspirin therapy, a baby aspirin. 5. Check a lipid panel. 6. Will get an EEG and that is on order. 7. Continue his home medications of Trileptal. 8. Maintain him on seizure precautions. Further recommendations to make accordingly. MD STEVEN Matthews/[place]ONT /10:16 AM /10:33 AM
[2017-02-21] MEDS ORDERED: LORazepam 2 MG/ML VIAL IV PUSH ONE (11:45)
[2017-02-21] MEDS: ASPIRIN EC 81 MG TABEC PO SCH (12:00)
--- NOTE | 2017-02-21 12:41 | RADRPT ---
EXAM DATE/TIME: 02/21/2017 12:28 [facility] COMPARISON: CT BRAIN W/O CONTRAST, February 21, 2017, 2:33. MRA BRAIN W/O CONTRAST, February 15, 2017, 9:53. INDICATIONS : Slurred speech. Dizziness. MEDICAL HISTORY : None. SURGICAL HISTORY : brain surgery as a child, hernia ENCOUNTER: Initial ACUITY: 1 day PAIN SCORE: 0/10 LOCATION: cranial Please note a normal MRA of the brain does not entirely exclude the possibility of a small aneurysm, nor the possibility of distal intracranial vessel disease. TECHNIQUE: 3D time of flight MRA was performed. Source images, multiplanar STS MIP, and 3D volume MIP reconstru ctions were reviewed. FINDINGS: There is excellent visualization of the major intracranial arteries out to the second-order branch ve ssels. There is no evidence for aneurysm, vessel truncation or stenosis, and no evidence for vascula r malformation. origin of the right posterior cerebral artery is noted. CONCLUSION: Normal examination. Jay Doherty MD on February 21, 2017 at 12:38 Board Certified Radiologist. This report was verified electronically.
--- NOTE | 2017-02-21 13:21 | RADRPT ---
EXAM DATE/TIME: 02/21/2017 12:28 [facility] COMPARISON: MRI BRAIN W/O CONTRAST, February 21, 2017, 12:28. INDICATIONS : Dizziness. Slurred speech. CONTRAST: 20 cc Omniscan (gadodiamide) IV MEDICAL HISTORY : None. SURGICAL HISTORY : brain surgery as a child, hernia ENCOUNTER: Initial ACUITY: 1 day PAIN SCORE: 0/10 LOCATION: neck Percent stenosis is calculated using the diameter of the stenotic region over the diameter of the nor mal distal internal carotid artery. TECHNIQUE: Bolus infused MRA of the extracranial circulation was performed using a neurovascular coil. Post pro cessing was performed including rotating subvolume maximum intensity projections of each carotid bryce ry, rotating full volume maximum intensity projections of both carotid arteries, sagittal and coronal sliding thin slab reformations of each carotid artery, and left oblique sliding thin slab reformatio n through the aortic arch to include the origin of the arch branch vessels. FINDINGS: AORTIC ARCH: There is a three vessel origin of the great vessels from the aorta. No evidence of ostial narrowing. RIGHT CAROTID: The common carotid artery is intact. The carotid bulb has a normal configuration without ulceration or narrowing. The internal carotid artery lumen is smooth without stenosis. The external carotid ar avelina is intact. LEFT CAROTID: The common carotid artery is intact. The carotid bulb has a normal configuration without ulceration or narrowing. The internal carotid artery lumen is smooth without stenosis. The external carotid ar avelina is intact. VERTEBRALS: The vertebral arteries have a symmetric diameter. No stenotic lesions are seen. CONCLUSION: Negative for stenosis or dissection. Omar Solares MD FACR on February 21, 2017 at 13:19 Board Certified Radiologist. This report was verified electronically.
--- NOTE | 2017-02-21 13:31 | RADRPT ---
EXAM DATE/TIME: 02/21/2017 12:28 [facility] COMPARISON: MRI BRAIN W/O CONTRAST, February 15, 2017, 9:53. INDICATIONS : Slurred speech. Dizziness. MEDICAL HISTORY : None. SURGICAL HISTORY : Brain surgery as a child, hernia ENCOUNTER: Initial ACUITY: 1 day PAIN SCORE: 0/10 LOCATION: Cranial TECHNIQUE: Multiplanar, multisequence MRI of the brain was performed without contrast. FINDINGS: There are mild periventricular white matter changes. Ventricular size is appropriate. There are no extra-axial fluid collections appreciated. There is no restricted diffusion evident. Midline structures are intact. Moderate motion artifact does obscure fine detail on the FLAIR images. There is no parenchymal hemorrhage. CONCLUSION: Atrophy with minimal periventricular white matter changes, negative for restricted diffusion. Omar Solares MD FACR on February 21, 2017 at 13:18 Board Certified Radiologist. This report was verified electronically.
[2017-02-21] MEDS ORDERED: GADODIAMIDE PF 287 MG/ML 5 ML VIAL (for RAD MRI) IVCONTRAST ONE (13:35)
[2017-02-21] MEDS: traZODone HCL 50 MG TAB PO SCH (21:58)
[2017-02-22] VITALS: BP 134/78; PULSE 58; RESP 18; TEMP 98.4; O2SAT 96
[2017-02-22 04:00] VITALS: BP 132/78; PULSE 60; RESP 16; TEMP 98.3; O2SAT 96
[2017-02-22] MEDS: SODIUM CHLOR 0.9% 1000 ML INJ 1,000 ML IV SCH (06:05)
[2017-02-22 07:37] LABS: AUTOMATED NEUTROPHIL # 4.7 TH/MM3 (1.8-7.7); BASOPHIL # 0.1 TH/MM3 (0-0.2); BASOPHIL % 1.2 % (0.0-2.0); EOSINOPHIL # 0.2 TH/MM3 (0-0.4); EOSINOPHIL % 2.8 % (0.0-4.0); HEMATOCRIT 42.5 % (39.0-51.0); HEMO FLAGS DIFF FINAL; LYMPH % 26.7 % (9.0-44.0); LYMPHOCYTE # 1.9 TH/MM3 (1.0-4.8); MEAN CELL VOLUME 89.4 FL (80.0-100.0); MEAN CORPUSCULAR HEMOGLOBIN 30.1 PG (27.0-34.0); MEAN CORPUSCULAR HGB CONC 33.6 % (32.0-36.0); MONO % 5.6 % (0.0-8.0); NEUT % 63.7 % (16.0-70.0); PLATELET COUNT 185 TH/MM3 (150-450); RED BLOOD COUNT 4.76 MIL/MM3 (4.50-5.90); RED CELL DISTRIBUTION WIDTH 13.2 % (11.6-17.2); WHITE BLOOD COUNT 7.3 TH/MM3 (4.0-11.0)
[2017-02-22 07:40] LABS: CHLORIDE 103 MEQ/L (98-107); POTASSIUM 4.2 MEQ/L (3.5-5.1); SODIUM (NA) 141 MEQ/L (136-145)
[2017-02-22 07:47] LABS: ANION GAP 6 MEQ/L (5-15); BICARBONATE 31.9 MEQ/L (21.0-32.0); BLOOD UREA NITROGEN 11 MG/DL (7-18)
[2017-02-22 07:50] LABS: ALT (GPT) 23 U/L (12-78); AST (GOT) 20 U/L (15-37); GLOMERULAR FILTRATION RATE 83 ML/MIN (>89)
[2017-02-22 07:52] LABS: TOTAL BILIRUBIN ADULT 0.5 MG/DL (0.2-1.0)
[2017-02-22 07:53] LABS: ALKALINE PHOSPHATASE 57 U/L (45-117)
[2017-02-22 08:00] VITALS: BP 122/86; PULSE 68; PULSE 92; RESP 18; TEMP 97.4; O2SAT 97
[2017-02-22] MEDS: SODIUM CHLORIDE 0.9% FLUSH 10 ML FLUSH IV FLUSH SCH ×2 (08:00→22:54)
[2017-02-22] MEDS: OXcarbazepine 300 MG TAB PO SCH ×2 (09:46→22:53)
[2017-02-22] MEDS: CITALOPRAM HYDROBROMIDE 40 MG TAB PO SCH (09:46)
[2017-02-22] MEDS: DOCUSATE SODIUM 50 MG/SENNA 8.6 MG TAB PO SCH (09:46)
[2017-02-22] MEDS: ASPIRIN EC 81 MG TABEC PO SCH (09:46)
[2017-02-22] MEDS: ACETAMINOPHEN/HYDROcodone 325 MG/10 MG TAB PO PRN (09:50)
[2017-02-22 12:00] VITALS: BP 106/65; PULSE 60; RESP 18; TEMP 97.7; O2SAT 95
--- NOTE | 2017-02-22 12:43 | HHI.PR ---
Subjective Remarks Patient seen and evaluated in follow-up for weakness lipase seizure. Images unremarkable. No events on telemetry. EEG pending Objective Vitals Vital Signs Date Time Temp Pulse Resp B/P (MAP) Pulse Ox O2 Delivery O2 Flow Rate FiO2 02/22/17 12:00 97.7 60 18 106/65 (79) 95 02/22/17 10:42 16 02/22/17 08:00 97.4 68 18 122/86 (98) 97 02/22/17 04:00 98.3 60 16 132/78 (96) 96 02/22/17 00:00 98.4 58 18 134/78 (96) 96 02/22/17 00:00 98.4 58 18 134/78 (96) 96 02/21/17 20:05 66 02/21/17 20:00 98.3 75 18 138/85 (102) 93 02/21/17 16:00 97.5 83 18 150/87 (108) 96 I/O 02/21/17 02/21/17 02/21/17 02/22/17 02/22/17 02/22/17 07:00 15:00 23:00 07:00 15:00 23:00 Intake Total 650 ml 1000 ml Output Total 225 ml Balance 650 ml -225 ml 1000 ml Intake Oral 650 ml IV Total 1000 ml Output Urine Total 225 ml # Voids 5 Result Diagram: 02/22/17 0655 02/22/17 0655 Imaging Last Impressions Head CT 02/21/17 0215 Signed Impressions: Service Date/Time: Tuesday, February 21, 2017 02:33 - CONCLUSION: 1. No acute intracranial abnormalities. 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 Shahab Arias MD Neck Magnetic Resonance Angiography 02/21/17 0000 Signed Impressions: Service Date/Time: Tuesday, February 21, 2017 12:28 - CONCLUSION: Negative for stenosis or dissection. Omar Solares MD FACR Head Magnetic Resonance Angiography 02/21/17 0000 Signed Impressions: Service Date/Time: Tuesday, February 21, 2017 12:28 - CONCLUSION: Normal examination. Jay Doherty MD Brain MRI 02/21/17 0000 Signed Impressions: Service Date/Time: Tuesday, February 21, 2017 12:28 - CONCLUSION: Atrophy with minimal periventricular white matter changes, negative for restricted diffusion. Omar Solares MD FACR Objective Remarks GENERAL: This is a well-nourished, well-developed patient, in no apparent distress. CARDIOVASCULAR: Regular rate and rhythm without murmurs, gallops, or rubs. RESPIRATORY: Clear to auscultation. Breath sounds equal bilaterally. No wheezes , rales, or rhonchi. GASTROINTESTINAL: Abdomen soft, non-tender, nondistended. Normal active bowel sounds MUSCULOSKELETAL: Still very weak a symmetrically Extremities without clubbing, cyanosis, or edema. NEURO: Alert & Oriented x4 to person, place, time, situation. Moves all ext x4 A/P Problem List: (1) Seizure ICD Code: R56.9 - Unspecified convulsions Status: Acute Plan: EEG pending Continue antiepileptic drugs (2) Schizoaffective disorder ICD Code: F25.9 - Schizoaffective disorder, unspecified Status: Chronic Plan: Continue patient's home medications (3) Weakness ICD Code: R53.1 - Weakness Plan: Echo pending and follow with physical therapy recommendations (4) Cephalgia ICD Code: R51 - Headache Status: Acute Plan: Likely complicated migraine Continue with pain management add Lavonne Aleman MD Feb 22, 2017 12:43
[2017-02-22] MEDS: NAPROXEN 250 MG TAB PO SCH ×2 (13:30→22:53)
[2017-02-22 16:00] VITALS: BP 152/103; PULSE 70; RESP 18; TEMP 96.5; O2SAT 98
[2017-02-22 20:00] VITALS: BP 134/87; PULSE 69; RESP 18; TEMP 97.1; O2SAT 95
--- NOTE | 2017-02-22 20:33 | ECHRPT ---
Indication: cva/tia CONCLUSIONS Normal left ventricular size. There is assymetric septal hypertrophy. The left ventricular systolic function is low normal with an estimated ejection fraction in the rang e of 50- 55%. Bgmyf-tf-kxsk mitral valve regurgitation. The mitral valve area by Pressure Halftime Method is _2.4_ cm. There is mild tricuspid valve regurgitation. The pulmonary valve is not well visualized. BP: / HR: Rhythm: MEASUREMENTS (Male / Female) Normal Values Technical Quality:Good 2D ECHO LV Diastolic Diameter PLAX 4.3 cm 4.2 - 5.9 / 3.9 - 5.3 cm LV Systolic Diameter PLAX 3.3 cm IVS Diastolic Thickness 1.3 cm 0.6 - 1.0 / 0.6 - 0.9 cm LVPW Diastolic Thickness 1.0 cm 0.6 - 1.0 / 0.6 - 0.9 cm LV Relative Wall Thickness 0.5 RV Internal Dim ED PLAX 2.8 cm M-MODE Aortic Root Diameter MM 2.8 cm LA Systolic Diameter MM 3.4 cm LA Ao Ratio MM 1.2 AV Cusp Separation MM 2.1 cm DOPPLER MV Area PHT 3.4 cm FINDINGS LEFT VENTRICLE Normal left ventricular size. There is assymetric septal hypertrophy. The left ventricular systolic function is low normal with an estimated ejection fraction in the rang e of 50- 55%. RIGHT VENTRICLE Normal right ventricular size and systolic function. LEFT ATRIUM The left atrial size is normal. RIGHT ATRIUM The right atrial size is normal. ATRIAL SEPTUM Normal atrial septal thickness without atrial level shunting by limited color doppler interrogation. AORTA The aortic root and proximal ascending aorta are normal in size on limited imaging. MITRAL VALVE Structurally normal mitral valve. Oagja-nq-pujk mitral valve regurgitation. The mitral valve area by Pressure Halftime Method is _2.4_ cm. AORTIC VALVE Trileaflet aortic valve. No aortic valve stenosis or regurgitation. TRICUSPID VALVE Structurally normal tricuspid valve. There is mild tricuspid valve regurgitation. PULMONARY VALVE The pulmonary valve is not well visualized. VESSELS The inferior vena cava is normal in size. PERICARDIUM No pericardial effusion. Waqar Yeh MD, FACC, [facility] [place] (Electronically Signed) Final Date:22 February 2017 20:32
[2017-02-22] MEDS: traZODone HCL 50 MG TAB PO SCH (22:54)
[2017-02-23] VITALS: BP 153/97; PULSE 52; RESP 18; TEMP 96; O2SAT 95
[2017-02-23 07:54] VITALS: BP 123/74; PULSE 68; RESP 20; TEMP 96.2; O2SAT 91
[2017-02-23] MEDS: OXcarbazepine 300 MG TAB PO SCH (09:44)
[2017-02-23] MEDS: ASPIRIN EC 81 MG TABEC PO SCH (09:44)
[2017-02-23] MEDS: NAPROXEN 250 MG TAB PO SCH (09:44)
[2017-02-23] MEDS: SODIUM CHLORIDE 0.9% FLUSH 10 ML FLUSH IV FLUSH SCH (09:44)
[2017-02-23] MEDS: CITALOPRAM HYDROBROMIDE 40 MG TAB PO SCH (09:44)
[2017-02-23] MEDS ORDERED: [UNRECOGNIZED DRUG - OTHER] (10:50)
--- NOTE | 2017-02-23 10:50 | HHI.DCPOC ---
Discharge Care Plan Diagnosis: (1) Seizure (2) Weakness Goals to Promote Your Health * To prevent worsening of your condition and complications * To maintain your health at the optimal level Directions to Meet Your Goals Take your medications as prescribed Follow your dietary instruction Follow activity as directed Keep your appointments as scheduled Take your immunizations and boosters as scheduled If your symptoms worsen call your PCP, if no PCP go to Urgent Care Center or Emergency Room Smoking is Dangerous to Your Health. Avoid second hand smoke Call the 24-hour hour crisis hotline for domestic abuse at Lavonne Jorge MD Feb 23, 2017 10:50
--- NOTE | 2017-02-23 10:52 | HHI.DS ---
cc: Mayda Moore MD Discharge Summary Admission Date Feb 21, 2017 at 03:49 Discharge Date: Feb 23, 2017 Admitting Diagnosis CVA (1) Seizure ICD Code: R56.9 - Unspecified convulsions Status: Acute (2) Schizoaffective disorder ICD Code: F25.9 - Schizoaffective disorder, unspecified Status: Chronic (3) Weakness ICD Code: R53.1 - Weakness (4) Cephalgia ICD Code: R51 - Headache Status: Acute Procedures None Brief History - From Admission Written by Ej Cosme, acting as scribe for Dr. Jorge on 02/21/17 at 08: 16. 41 year-old male with known history of seizures, TIA, schizoaffective disorder, chronic back pain who presented to hospital because of persistent neurological symptoms. Patient states that his symptoms started approximately one week ago when he got out of bed he had a syncopal episode where he found himself lying on the floor and didn't know how he got there. After that he was having blurred vision, stuttering speech, paresthesia in the right arm, he had problems ambulating with some disequilibrium and cephalgia. Patient came to the emergency department at that time and was admitted to the residents service. Patient states that there was some episode with his meal and because he was not able to eat he left the hospital AGAINST MEDICAL ADVICE. Patient states that he went home and he had been having a persistent headache, he still had paresthesia in his right arm. He had been taken Excedrin on a daily basis without any improvement. He indicates his headache was 6/10 on a pain scale. Patient states that he was watching football yesterday and there is a 2 hour period where he did not know what happened, he does not know if he had another syncopal episode, seizure or fell asleep. Because his headache would not go away he came back to the hospital for evaluation. Patient has CT scan done in the emergency department and there was no acute intracranial abnormality. Is recommended by ER physician the patient be admitted for further evaluation and management. CBC/BMP: 02/22/17 0655 02/22/17 0655 Significant Findings Laboratory Tests Test 02/21/17 02:45 02/22/17 06:55 Urine Ketones TRACE mg/dL (NEG) Random Glucose 110 MG/DL (74-106) Estimat Glomerular Filtration Rate 75 ML/MIN (>89) 83 ML/MIN (>89) Troponin I LESS THAN 0.02 NG/ML Albumin 3.3 GM/DL (3.4-5.0) Imaging Last Impressions Head CT 02/21/17 0215 Signed Impressions: Service Date/Time: Tuesday, February 21, 2017 02:33 - CONCLUSION: 1. No acute intracranial abnormalities. 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 Shahab Arias MD Neck Magnetic Resonance Angiography 02/21/17 0000 Signed Impressions: Service Date/Time: Tuesday, February 21, 2017 12:28 - CONCLUSION: Negative for stenosis or dissection. Omar Solares MD FACR Head Magnetic Resonance Angiography 02/21/17 0000 Signed Impressions: Service Date/Time: Tuesday, February 21, 2017 12:28 - CONCLUSION: Normal examination. Jay Doherty MD Brain MRI 02/21/17 0000 Signed Impressions: Service Date/Time: Tuesday, February 21, 2017 12:28 - CONCLUSION: Atrophy with minimal periventricular white matter changes, negative for restricted diffusion. Omar Solares MD FACR PE at Discharge GENERAL: This is a well-nourished, well-developed patient, in no apparent distress. CARDIOVASCULAR: Regular rate and rhythm without murmurs, gallops, or rubs. RESPIRATORY: Clear to auscultation. Breath sounds equal bilaterally. No wheezes , rales, or rhonchi. GASTROINTESTINAL: Abdomen soft, non-tender, nondistended. Normal active bowel sounds MUSCULOSKELETAL: Still very weak a symmetrically Extremities without clubbing, cyanosis, or edema. NEURO: Alert & Oriented x4 to person, place, time, situation. Moves all ext x4 Pt update on day of discharge Patient feeling better today. Weakness is improved. EEG unremarkable. Discharge plans discussed with patient who is in agreement. Care plan also discussed with physical therapy and recommended to came Hospital Course Patient is a 41-year-old gentleman with a history of migraines and seizures who had headache with associated weakness. He was rule out for CVA and seen also by the neurologist in consultation. Patient's thought to have complicated migraine and this improved with pain medicines Pt Condition on Discharge: Good Discharge Disposition: Discharge Home Discharge Time: <= 30 minutes Discharge Instructions DIET: Follow Instructions for: As Tolerated, No Restrictions Activities you can perform: Regular-No Restrictions New Medications: Cane with Strap/Black (Cane with Strap/Black) 1 Mis Mis EA .ROUTE DIRECTED for weakness, #1 Continued Medications: Citalopram (Citalopram) 40 Mg Tab 40 MG PO DAILY for Control Depression, #30 TAB 0 Refills Ibuprofen (Ibuprofen) 800 Mg Tab 800 MG PO Q6HR PRN for PAIN, #30 TAB 0 Refills Oxcarbazepine (Trileptal) 300 Mg Tab 300 MG PO BID for Seizure Control, #60 TAB 0 Refills Quetiapine (Seroquel) 400 Mg Tab 400 MG PO HS, #30 TAB 0 Refills Quetiapine (Seroquel) 100 Mg Tab 100 MG PO BID, #60 TAB 0 Refills Trazodone (Trazodone) 50 Mg Tab 100 MG PO HS for Control Depression, #30 TAB 0 Refills Lavonne Jorge MD Feb 23, 2017 10:52
[2017-02-23 12:00] VITALS: BP 134/81; PULSE 63; RESP 20; TEMP 96.8; O2SAT 98
[2017-02-23 15:36] VITALS: BP 130/77; PULSE 67; RESP 20; TEMP 96.8; O2SAT 98
--- NOTE | 2017-02-23 16:13 | MG ---
cc: JACKELYN UNDERWOOD MD Lab No: Date: Age: Sex: M Race: DATE OF STUDY 02/23/2017 ELECTROENCEPHALOGRAM RECORD NUMBER [id number] DATE OF 1975 HISTORY A 41-year-old male history of weakness, headache, schizophrenia. DESCRIPTION Posterior rhythm demonstrates 7-8 Hz activity 20-40 microvolts. Myogenic artifact in the frontal channels. Good anterior-posterior gradient. Good EEG variability reactivity. Slightly reduced driving with photic stimulation. Single EKG showing sinus rhythm. INTERPRETATION Slow alpha variant EEG. No epileptic activity appreciated. Clinical correlation. Mild to moderate frontal myogenic artifact noted. Jackelyn Underwood MD MG/KK /3:51 PM /4:03 PM
== END 2017-02-23 17:06 | disposition home or self-care (01) | DRG 103 ==
LOC: PHED 01:46 → PHEDA 03:49 → PH3A 08:36
PROVIDERS: ADMIT Hospitalist; ATTEND Hospitalist
DX: G43.109 Migraine with aura, not intractable, without status migrainosus (principal); F25.9 Schizoaffective disorder, unspecified; G40.909 Epilepsy, unspecified, not intractable, without status epilepticus; F17.210 Nicotine dependence, cigarettes, uncomplicated; Z86.73 Personal history of transient ischemic attack (TIA), and cerebral infarction without residual deficits; R53.1 Weakness; Z88.8 Allergy status to other drugs, medicaments and biological substances
CPT/HCPCS: 70450; 70544; 70548; 70551; 80053; 80307; 81001; 84484; 85025; 85610; 85730; 93005; 93306; 95819; A9579; J2060; J7030

== ENCOUNTER 2017-06-07 21:24 | Observation (INO) | payer SELFPAY ==
[~2017-06-07] VITALS: Ht 175.3 cm; Wt 89.1 kg
[~2017-06-07 21:24] MED LIST changes: +IBUP1TAB7 PO; -IBUP800T23 PO; +[UNRECOGNIZED DRUG - OTHER]
[2017-06-07 21:35] VITALS: BP 123/67; PULSE 93; RESP 20; TEMP 98.9; O2SAT 97
[2017-06-07] MEDS ORDERED: SODIUM CHLORIDE 0.9% FLUSH 10 ML FLUSH IVF PRN (23:15)
--- NOTE | 2017-06-07 23:56 | RADRPT ---
EXAM DATE/TIME: 06/07/2017 23:31 [facility] COMPARISON: CT BRAIN W/O CONTRAST, February 21, 2017, 2:33. INDICATIONS : Spotted vision. Worsening right lower extremity weakness. RADIATION DOSE: 55.56 CTDIvol (mGy) MEDICAL HISTORY : Seizures. Cerebrovascular disease. SURGICAL HISTORY : Cranial suture surgery as . ENCOUNTER: Initial ACUITY: 2 days PAIN SCALE: 6/10 LOCATION: Bilateral cranial TECHNIQUE: Multiple contiguous axial images were obtained of the head. Using automated exposure control and adj ustment of the mA and/or kV according to patient size, radiation dose was kept as low as reasonably a chievable to obtain optimal diagnostic quality images. DICOM format image data is available electro nically for review and comparison. FINDINGS: CEREBRUM: The ventricles are normal for age. No evidence of midline shift, mass lesion, hemorrhage or acute in farction. No extra-axial fluid collections are seen. POSTERIOR FOSSA: The cerebellum and brainstem are intact. The 4th ventricle is midline. The cerebellopontine angle i s unremarkable. EXTRACRANIAL: The visualized portion of the orbits is intact. SKULL: The calvaria is intact. No evidence of skull fracture. There are metallic clips over the superior as pect of the skull. CONCLUSION: No acute disease. Luis Escalona MD on June 07, 2017 at 23:53 Board Certified Radiologist. This report was verified electronically.
[2017-06-08] VITALS (10 sets, daily range): BP systolic 106–120; BP diastolic 68–88; PULSE 61–80; RESP 13–20; TEMP 97.5–98.2; O2SAT 95–98
[2017-06-08 00:33] LABS: AUTOMATED NEUTROPHIL # 7.1 TH/MM3 (1.8-7.7); BASOPHIL # 0.1 TH/MM3 (0-0.2); BASOPHIL % 0.5 % (0.0-2.0); EOSINOPHIL # 0.4 TH/MM3 (0-0.4); HEMATOCRIT 46.1 % (39.0-51.0); LYMPH % 30.6 % (9.0-44.0); LYMPHOCYTE # 3.6 TH/MM3 (1.0-4.8); MEAN CELL VOLUME 90.8 FL (80.0-100.0); MEAN CORPUSCULAR HEMOGLOBIN 29.4 PG (27.0-34.0); MEAN CORPUSCULAR HGB CONC 32.4 % (32.0-36.0); MONO % 4.3 % (0.0-8.0); NEUT % 61.6 % (16.0-70.0); PLATELET COUNT 245 TH/MM3 (150-450); RED BLOOD COUNT 5.07 MIL/MM3 (4.50-5.90); RED CELL DISTRIBUTION WIDTH 13.5 % (11.6-17.2); WHITE BLOOD COUNT 11.7 TH/MM3 (4.0-11.0)
[2017-06-08 00:47] LABS: POTASSIUM 3.9 MEQ/L (3.5-5.1)
[2017-06-08 00:50] LABS: BICARBONATE 26.2 MEQ/L (21.0-32.0)
[2017-06-08 00:55] LABS: HEMO FLAGS DIFF FINAL
--- NOTE | 2017-06-08 00:57 | PD ---
HPI Chief Complaint: Numbness/Tingling Time Seen by Provider: 23:08 Travel History International Travel<30 days: No Contact w/Intl Traveler<30days: No Traveled to known affect area: No History of Present Illness HPI 3 months prior this 41-year-old male had a stroke. He has since had weakness and sensory loss in the right lower extremity as well as right upper extremity. He notes for the past few days he's had increasing numbness and weakness in the right leg. He states spots in the right eye have become increasingly noticeable. He denies interval injuries. Symptoms seem to have gradually persisted. No nausea vomiting fever chills chest pain or palpitation offered. Patient has been unable to follow with neurology due to lack of insurance/ financial resources. PFSH Past Medical History Hx Anticoagulant Therapy: Yes (BABY ASA) Arthritis: Yes (SPINE,NECK,BACK) Asthma: No Autoimmune Disease: No Blood Disorders: No Anxiety: No Depression: Yes (mild) Heart Rhythm Problems: No Cancer: No Cardiovascular Problems: No High Cholesterol: No Chemotherapy: No Chest Pain: No Congestive Heart Failure: No COPD: No Cerebrovascular Accident: Yes Diabetes: No Diminished Hearing: No Endocrine: No Gastrointestinal Disorders: Yes (GERD) GERD: Yes Glaucoma: No Genitourinary: No Headaches: Yes Hepatitis: No Hiatal Hernia: No Hypertension: No Immune Disorder: No Inguinal Hernia: Yes Implanted Vascular Access Dvce: No Kidney Stones: No Musculoskeletal: Yes Neurologic: Yes (SEIZURE DISORDER, SCHIZOAFFECTIVE disorder) Psychiatric: Yes (schizoaffective disorder) Reproductive: No Respiratory: No Immunizations Current: No Migraines: Yes Myocardial Infarction: No Radiation Therapy: No Renal Failure: No Schizophrenia: Yes Seizures: Yes Sickle Cell Disease: No Sleep Apnea: No Thyroid Disease: No Ulcer: No Tetanus Vaccination: < 5 Years Influenza Vaccination: No PNEUMOCCOCAL Vaccine (Year): 2 Past Surgical History Abdominal Surgery: Yes (hernia repair) AICD: No Cardiac Surgery: No Ear Surgery: No Endocrine Surgery: No Eye Surgery: No Genitourinary Surgery: No Gynecologic Surgery: No Insulin Pump: No Neurologic Surgery: Yes (infant cranial suture surgery) Oral Surgery: No Pacemaker: No Thoracic Surgery: No Other Surgery: Yes (HERNIA REPAIR, intracranial operation at 1.5 years old) Social History Alcohol Use: Yes (occasionally ) Tobacco Use: Yes (1/3 PPD) Substance Use: No Allergies-Medications (Allergen,Severity, Reaction): Coded Allergies: haloperidol (Unverified Allergy, Severe, MUSCLE SPASMS, 06/07/17) phenytoin (Unverified Allergy, Severe, VISION LOSS, 06/07/17) benztropine (Unverified Adverse Reaction, Severe, MUSCLE SPASMS, 06/07/17) Reported Meds & Prescriptions Reported Meds & Active Scripts Active Cane with Strap/Black (Device) 1 Mis Mis Ea .ROUTE DIRECTED Ibuprofen 800 Mg Tab 800 Mg PO Q6HR PRN Reported Trazodone (Trazodone HCl) 50 Mg Tab 100 Mg PO HS Seroquel (Quetiapine Fumarate) 100 Mg Tab 100 Mg PO BID Seroquel (Quetiapine Fumarate) 400 Mg Tab 400 Mg PO HS Trileptal (Oxcarbazepine) 300 Mg Tab 300 Mg PO BID Citalopram (Citalopram Hydrobromide) 40 Mg Tab 40 Mg PO DAILY Review of Systems Except as stated in HPI: all other systems reviewed are Neg General / Constitutional: No: Fever Respiratory: No: Cough, Shortness of Breath Physical Exam Narrative GENERAL: 41-year-old male well-nourished well-developed SKIN: Focused skin assessment warm/dry. HEAD: Atraumatic. Normocephalic. EYES: Pupils equal and round. No scleral icterus. No injection or drainage. ENT: No nasal bleeding or discharge. Mucous membranes pink and moist. NECK: Trachea midline. No JVD. CARDIOVASCULAR: The rhythm is regular. The rate is about 80 RESPIRATORY: No tachypnea. The lungs are clear. GASTROINTESTINAL: Abdomen soft, non-tender, nondistended. Hepatic and splenic margins not palpable. MUSCULOSKELETAL: No gross deformity aside from trace atrophy in the right arm and right leg NEUROLOGICAL: Dorsiflexion of the right ankle compared to the left is minimally decreased. Patient's hand kiln burner on the right side is decreased compared to the left. Speech memory mentation are normal. PSYCHIATRIC: Appropriate mood and affect; insight and judgment normal. Data Data Last Documented VS Vital Signs Date Time Temp Pulse Resp B/P (MAP) Pulse Ox O2 Delivery O2 Flow Rate FiO2 06/08/17 00:39 16 97 Room Air 06/07/17 21:35 98.9 93 123/67 (85) Vital signs reviewed Orders Orders Electrocardiogram (06/07/17 23:14) Complete Blood Count With Diff (06/07/17 23:14) Basic Metabolic Panel (Bmp) (06/07/17 23:14) Ct Brain W/O Iv Contrast(Rout) (06/07/17 23:14) Ecg Monitoring (06/07/17 23:14) Iv Access Insert/Monitor (06/07/17 23:14) Oximetry (06/07/17 23:14) Sodium Chloride 0.9% Flush (Ns Flush) (06/07/17 23:15) Admit Order (Ed Use Only) (06/08/17 ) Pilot Plant Technician / Telemetry MICKY.Q8H (06/08/17 01:09) Vital Signs (Adult) Q4H (06/08/17 01:09) Diet Heart Healthy (06/08/17 Breakfast) Activity Bed Rest (06/08/17 01:09) Labs Laboratory Tests Test 06/08/17 00:19 White Blood Count 11.7 TH/MM3 Red Blood Count 5.07 MIL/MM3 Hemoglobin 14.9 GM/DL Hematocrit 46.1 % Mean Corpuscular Volume 90.8 FL Mean Corpuscular Hemoglobin 29.4 PG Mean Corpuscular Hemoglobin Concent 32.4 % Red Cell Distribution Width 13.5 % Platelet Count 245 TH/MM3 Mean Platelet Volume 9.4 FL Neutrophils (%) (Auto) 61.6 % Lymphocytes (%) (Auto) 30.6 % Monocytes (%) (Auto) 4.3 % Eosinophils (%) (Auto) 3.0 % Basophils (%) (Auto) 0.5 % Neutrophils # (Auto) 7.1 TH/MM3 Lymphocytes # (Auto) 3.6 TH/MM3 Monocytes # (Auto) 0.5 TH/MM3 Eosinophils # (Auto) 0.4 TH/MM3 Basophils # (Auto) 0.1 TH/MM3 CBC Comment DIFF FINAL Differential Comment Blood Urea Nitrogen 16 MG/DL Creatinine 1.20 MG/DL Random Glucose 103 MG/DL Calcium Level 8.4 MG/DL Sodium Level 138 MEQ/L Potassium Level 3.9 MEQ/L Chloride Level 104 MEQ/L Carbon Dioxide Level 26.2 MEQ/L Anion Gap 8 MEQ/L Estimat Glomerular Filtration Rate 67 ML/MIN MDM Medical Decision Making Medical Screen Exam Complete: Yes Emergency Medical Condition: Yes Medical Record Reviewed: Yes Differential Diagnosis TIA, CVA, chronic weakness, electrolyte imbalance Narrative Course EKG sinus rate 72 normal axis and intervals CBC & BMP Diagram 06/08/17 00:19 Calcium Level 8.[address] shows no acute change Presentation is concerning for interval stroke and admission for MR imaging and monitoring considered most reasonable next step. Discussed with Dr. Tanner for [facility]. Diagnosis Primary Impression: Weakness Admitting Information Admitting Physician Requests: Observation Melquiades Hernandez MD Jun 08, 2017 00:57
[2017-06-08] MEDS ORDERED: DEXTROSE 50% IN WATER 50 ML VIAL(D50) IV PUSH PRN (01:15)
[2017-06-08] MEDS ORDERED: SODIUM CHLORIDE 0.9% FLUSH 10 ML FLUSH IV FLUSH PRN (01:15)
[2017-06-08] MEDS ORDERED: GLUCAGON 1 MG/ML VIAL OTHER PRN (01:15)
[2017-06-08] MEDS: SODIUM CHLOR 0.9% 1000 ML INJ 1,000 ML IV SCH ×2 (01:27→17:21)
[2017-06-08] MEDS: HEPARIN SODIUM - SQ 10,000 UNITS/ML VIAL SQ SCH ×3 (02:00→17:21)
[2017-06-08] MEDS ORDERED: INSULIN ASPART SUPPLEMENTAL SCALE SQ SCH (08:00)
[2017-06-08] MEDS ORDERED: ASPIRIN 325 MG TAB PO SCH (09:00)
[2017-06-08] MEDS: SODIUM CHLORIDE 0.9% FLUSH 10 ML FLUSH IV FLUSH SCH ×2 (09:38→20:47)
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
--- NOTE | 2017-06-08 13:02 | EKG ---
Date Performed: 06/07/2017 Time Performed: 23:24:27 PTAGE: 41 years EKG: Sinus rhythm NORMAL ECG Compared to prior tracing no significant change DOCTOR: José Antonio Lima Interpretating Date/Time 06/08/2017 13:01:23
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
--- NOTE | 2017-06-08 14:38 | RADRPT ---
EXAM DATE/TIME: 06/08/2017 13:20 [facility] COMPARISON: MRI BRAIN W/O CONTRAST, February 21, 2017, 12:28. INDICATIONS : Right sided weakness. MEDICAL HISTORY : Stroke Seizures. SURGICAL HISTORY : Inguinal hernia repair. Cranial surgery as baby. ENCOUNTER: Initial ACUITY: 1 day PAIN SCORE: 0/10 LOCATION: head TECHNIQUE: Multiplanar, multisequence MRI of the brain was performed without contrast. FINDINGS: CEREBRUM: The ventricles are normal for age. No evidence of midline shift, mass lesion, hemorrhage or acute in farction. No extraaxial fluid collections are seen. The pituitary gland and suprasellar cistern are normal in configuration. WHITE MATTER: Redemonstration of minimal scattered foci of T2 prolongation in the periventricular and deep white ma tter. This is unchanged from prior exams. POSTERIOR FOSSA: The cerebellum and brainstem are intact. The 4th ventricle is midline. The cerebellopontine angle is unremarkable. The cerebellar tonsils are normal in position. DIFFUSION IMAGING: No focal areas of restricted diffusion are seen. No evidence of acute infarction. EXTRACRANIAL: The visualized portions of the orbits and paranasal sinuses are unremarkable. CONCLUSION: 1. No acute intracranial abnormality or significant interval change. 2. Redemonstration of minimal chronic small vessel ischemic white matter demyelination. Thor Redmond MD on June 08, 2017 at 14:33 Board Certified Radiologist. This report was verified electronically.
[2017-06-08 16:50] LABS: HEMOGLOBIN A1a 1.1 %; HEMOGLOBIN Ao 84.7 %; HEMOGLOBIN F 0.9 %; HEMOGLOBIN P3 3.9 %
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
[2017-06-08] MEDS: NAPROXEN 375 MG TAB PO PRN (20:46)
[2017-06-08] MEDS: QUEtiapine FUMARATE 100 MG TAB PO SCH (20:47)
[2017-06-08] MEDS: OXcarbazepine 300 MG TAB PO SCH (20:47)
[2017-06-08] MEDS ORDERED: ATORVASTATIN 20 MG TAB PO SCH (21:00)
[2017-06-09] VITALS: BP 93/56; PULSE 59; RESP 18; TEMP 97.7; O2SAT 97
[2017-06-09] MEDS: HEPARIN SODIUM - SQ 10,000 UNITS/ML VIAL SQ SCH ×2 (02:37→08:36)
[2017-06-09 04:00] VITALS: BP 98/59; PULSE 61; RESP 16; TEMP 97.8; O2SAT 96
[2017-06-09] MEDS: SODIUM CHLOR 0.9% 1000 ML INJ 1,000 ML IV SCH (05:49)
[2017-06-09 06:32] LABS: POTASSIUM 4.2 MEQ/L (3.5-5.1)
[2017-06-09 06:35] LABS: BICARBONATE 26.7 MEQ/L (21.0-32.0)
[2017-06-09 06:45] LABS: AUTOMATED NEUTROPHIL # 3.5 TH/MM3 (1.8-7.7); BASOPHIL % 0.3 % (0.0-2.0); EOSINOPHIL # 0.4 TH/MM3 (0-0.4); EOSINOPHIL % 5.6 % (0.0-4.0); HEMATOCRIT 42.4 % (39.0-51.0); HEMO FLAGS DIFF FINAL; LYMPH % 40.7 % (9.0-44.0); MEAN CORPUSCULAR HEMOGLOBIN 29.5 PG (27.0-34.0); MEAN CORPUSCULAR HGB CONC 31.7 % (32.0-36.0); MONO % 6.2 % (0.0-8.0); NEUT % 47.2 % (16.0-70.0); PLATELET COUNT 175 TH/MM3 (150-450); RED BLOOD COUNT 4.55 MIL/MM3 (4.50-5.90); RED CELL DISTRIBUTION WIDTH 13.8 % (11.6-17.2); WHITE BLOOD COUNT 7.4 TH/MM3 (4.0-11.0)
[2017-06-09 08:00] VITALS: BP 118/81; PULSE 69; RESP 14; TEMP 96.5; O2SAT 98
[2017-06-09] MEDS: QUEtiapine FUMARATE 100 MG TAB PO SCH (08:35)
[2017-06-09] MEDS: SODIUM CHLORIDE 0.9% FLUSH 10 ML FLUSH IV FLUSH SCH (08:35)
[2017-06-09] MEDS: OXcarbazepine 300 MG TAB PO SCH (08:35)
[2017-06-09] MEDS: NAPROXEN 375 MG TAB PO PRN (08:44)
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
[2017-06-09] MEDS ORDERED: SERO100T PO (08:56)
[2017-06-09] MEDS ORDERED: ASPI81TA23 PO (08:56)
[2017-06-09] MEDS ORDERED: ATOR20TA15 PO (08:56)
[2017-06-09] MEDS ORDERED: CITALOPRAM HYDROBROMIDE 40 MG TAB PO SCH (09:00)
[2017-06-09] MEDS ORDERED: ASPIRIN 325 MG TAB PO SCH (09:00)
[2017-06-09 09:17] VITALS: PULSE 71
[2017-06-09] MEDS ORDERED: ASPIRIN 81 MG CHEW TAB PO SCH (09:17)
[2017-06-09 09:44] VITALS: RESP 18
[2017-06-09 09:59] LABS: HDL CHOLESTEROL 30.4 MG/DL (40.0-60.0)
[2017-06-09] MEDS ORDERED: LOVA20TA PO (10:09)
== END 2017-06-09 10:25 | disposition home or self-care (01) ==
LOC: PHED 21:24 → PHEDA 06-08 01:11 → PH3A 06-08 01:50
PROVIDERS: ADMIT Hospitalist; ATTEND Hospitalist
DX: G40.909 Epilepsy, unspecified, not intractable, without status epilepticus (principal); F25.9 Schizoaffective disorder, unspecified; R53.1 Weakness; R20.0 Anesthesia of skin; N17.9 Acute kidney failure, unspecified; R51 Headache; H53.9 Unspecified visual disturbance; M54.9 Dorsalgia, unspecified; G89.29 Other chronic pain; F32.9 Major depressive disorder, single episode, unspecified; F17.200 Nicotine dependence, unspecified, uncomplicated; Z86.73 Personal history of transient ischemic attack (TIA), and cerebral infarction without residual deficits
CPT/HCPCS: 70450; 70544; 70551; 80048; 80061; 82948; 83036; 85025; 92610; 93005; 96360; 96361; 96372; 97162; 97166; 99285; G0378; G8987; G8988; G8996; G8997; G8998; J1644; J7030

== ENCOUNTER 2017-07-01 19:11 | Emergency (ER) | payer SELFPAY ==
[~2017-07-01] VITALS: Ht 175.3 cm; Wt 75.0 kg
[~2017-07-01 19:11] MED LIST changes: +ASPI81TA23 PO; +LOVA20TA PO
[2017-07-01 19:15] VITALS: BP 141/98; PULSE 75; RESP 16; TEMP 98.5; O2SAT 98
[2017-07-01 21:00] VITALS: RESP 19; O2SAT 99
--- NOTE | 2017-07-01 21:29 | PD ---
HPI Chief Complaint: Syncope/Near-Syncope Time Seen by Provider: 21:13 Travel History International Travel<30 days: No Contact w/Intl Traveler<30days: No Traveled to known affect area: No History of Present Illness HPI 41-year-old male with history of seizure disorder, schizoaffective disorder, CVAs, here by ambulance from home for evaluation of syncopal episode versus possible seizure. The patient reports that he was in the kitchen at around 7: 00 PM when he became lightheaded and the next thing he knew he woke up on the ground. There were no witnesses to this event. 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 He is currently on Trileptal. After he woke up he had slight blurry vision and dizziness which has since resolved. He denies injuring himself and denies having pain anywhere. No paresthesias or motor deficits. No fevers or recent illness. Chart review shows that the patient was admitted in May 2017 with right lower extremity weakness for possible CVA. At that time he had a brain MRI that showed no acute abnormality or significant interval change with diminished aeration of minimal chronic small vessel ischemic white matter demyelinization. MRA of the brain at that time was read as unremarkable. Chart review also shows that the patient had an echocardiogram on 02/22/17 that showed an EF in the range of 50-55% with normal LV function. PFSH Past Medical History Hx Anticoagulant Therapy: Yes (BABY ASA) Arthritis: Yes (SPINE,NECK,BACK) Asthma: No Autoimmune Disease: No Blood Disorders: No Anxiety: No Depression: Yes (mild) Heart Rhythm Problems: No Cancer: No Cardiovascular Problems: No High Cholesterol: No Chemotherapy: No Chest Pain: No Congestive Heart Failure: No COPD: No Cerebrovascular Accident: Yes ("Multiple") Diabetes: No Diminished Hearing: No Endocrine: No Gastrointestinal Disorders: Yes (GERD) GERD: Yes Glaucoma: No Genitourinary: No Headaches: Yes Hepatitis: No Hiatal Hernia: No Hypertension: No Immune Disorder: No Inguinal Hernia: Yes Implanted Vascular Access Dvce: No Kidney Stones: No Musculoskeletal: Yes Neurologic: Yes (SEIZURE DISORDER, SCHIZOAFFECTIVE disorder) Psychiatric: Yes (schizoaffective disorder) Reproductive: No Respiratory: No Immunizations Current: No Migraines: Yes Myocardial Infarction: No Radiation Therapy: No Renal Failure: No Schizophrenia: Yes Seizures: Yes Sickle Cell Disease: No Sleep Apnea: No Thyroid Disease: No Ulcer: No PNEUMOCCOCAL Vaccine (Year): 2 Past Surgical History Surgical History: No Previous Surgery Abdominal Surgery: Yes (hernia repair) AICD: No Cardiac Surgery: No Ear Surgery: No Endocrine Surgery: No Eye Surgery: No Genitourinary Surgery: No Gynecologic Surgery: No Insulin Pump: No Neurologic Surgery: Yes ( cranial suture surgery) Oral Surgery: No Pacemaker: No Thoracic Surgery: No Other Surgery: Yes (HERNIA REPAIR, intracranial operation at 1.5 years old) Social History Alcohol Use: Yes (occasionally ) Tobacco Use: Yes (06/23 PPD) Substance Use: No Allergies-Medications (Allergen,Severity, Reaction): Coded Allergies: haloperidol (Unverified Allergy, Severe, MUSCLE SPASMS, 06/07/17) phenytoin (Unverified Allergy, Severe, VISION LOSS, 06/07/17) benztropine (Unverified Adverse Reaction, Severe, MUSCLE SPASMS, 06/07/17) Reported Meds & Prescriptions Reported Meds & Active Scripts Active Lovastatin 20 Mg Tab 20 Mg PO DAILY Aspirin EC (Aspirin) 81 Mg Tabdr 81 Mg PO DAILY Seroquel (Quetiapine Fumarate) 100 Mg Tab 100 Mg PO DAILY Cane with Strap/Black (Device) 1 Mis Mis Ea .ROUTE DIRECTED Ibuprofen 800 Mg Tab 800 Mg PO Q6HR PRN Reported Trazodone (Trazodone HCl) 50 Mg Tab 100 Mg PO HS Seroquel (Quetiapine Fumarate) 400 Mg Tab 400 Mg PO HS Trileptal (Oxcarbazepine) 300 Mg Tab 300 Mg PO BID Citalopram (Citalopram Hydrobromide) 40 Mg Tab 40 Mg PO DAILY Review of Systems Except as stated in HPI: all other systems reviewed are Neg Physical Exam Narrative GENERAL: Well-developed, well-nourished, comfortable, awake, alert, GCS 15, no apparent distress. SKIN: Focused skin assessment warm/dry. No lacerations, abrasions, or ecchymosis. HEAD: Atraumatic. Normocephalic. EYES: Pupils equal, round, 3 mm, reactive to light. EOMI. No scleral icterus. No injection or drainage. ENT: No nasal bleeding or discharge. Mucous membranes pink and moist. NECK: Trachea midline. No JVD. CARDIOVASCULAR: Regular rate and rhythm. RESPIRATORY: No accessory muscle use. Clear to auscultation. Breath sounds equal bilaterally. GASTROINTESTINAL: Abdomen soft, non-tender, nondistended. MUSCULOSKELETAL: No obvious deformities. No clubbing. No cyanosis. No edema. NEUROLOGICAL: Awake and alert. No obvious cranial nerve deficits. Motor grossly within normal limits. Normal speech. No focal deficits. PSYCHIATRIC: Appropriate mood and affect; insight and judgment normal. Data Data Last Documented VS Vital Signs Date Time Temp Pulse Resp B/P (MAP) Pulse Ox O2 Delivery O2 Flow Rate FiO2 07/01/17 21:00 19 99 Room Air 07/01/17 19:15 98.5 75 Orders Orders Electrocardiogram (07/01/17 21:30) Complete Blood Count With Diff (07/01/17 21:30) Comprehensive Metabolic Panel (07/01/17 21:30) Ckmb (Isoenzyme) Profile (07/01/17 21:30) Troponin I (07/01/17 21:30) Chest, Single Ap (07/01/17 21:30) Ct Brain W/O Iv Contrast(Rout) (07/01/17 21:30) Ecg Monitoring (07/01/17 21:30) Iv Access Insert/Monitor (07/01/17 21:30) Oximetry (07/01/17 21:30) Sodium Chloride 0.9% Flush (Ns Flush) (07/01/17 21:30) CKMB (07/01/17 21:40) CKMB% (07/01/17 21:40) Labs Laboratory Tests Test 07/01/17 21:40 White Blood Count 13.8 TH/MM3 Red Blood Count 4.61 MIL/MM3 Hemoglobin 14.4 GM/DL Hematocrit 42.2 % Mean Corpuscular Volume 91.4 FL Mean Corpuscular Hemoglobin 31.2 PG Mean Corpuscular Hemoglobin Concent 34.1 % Red Cell Distribution Width 13.8 % Platelet Count 207 TH/MM3 Mean Platelet Volume 8.8 FL Neutrophils (%) (Auto) 71.8 % Lymphocytes (%) (Auto) 20.6 % Monocytes (%) (Auto) 5.7 % Eosinophils (%) (Auto) 1.6 % Basophils (%) (Auto) 0.3 % Neutrophils # (Auto) 9.9 TH/MM3 Lymphocytes # (Auto) 2.8 TH/MM3 Monocytes # (Auto) 0.8 TH/MM3 Eosinophils # (Auto) 0.2 TH/MM3 Basophils # (Auto) 0.0 TH/MM3 CBC Comment DIFF FINAL Differential Comment Blood Urea Nitrogen 5 MG/DL Creatinine 1.11 MG/DL Random Glucose 83 MG/DL Total Protein 7.4 GM/DL Albumin 4.0 GM/DL Calcium Level 8.1 MG/DL Alkaline Phosphatase 69 U/L Aspartate Amino Transf (AST/SGOT) 16 U/L Alanine Aminotransferase (ALT/SGPT) 26 U/L Total Bilirubin 0.2 MG/DL Sodium Level 144 MEQ/L Potassium Level 3.4 MEQ/L Chloride Level 107 MEQ/L Carbon Dioxide Level 31.0 MEQ/L Anion Gap 6 MEQ/L Estimat Glomerular Filtration Rate 74 ML/MIN Total Creatine Kinase 159 U/L Creatine Kinase MB LESS THAN 0.5 NG/ML Troponin I LESS THAN 0.02 NG/ML MDM Medical Decision Making Medical Screen Exam Complete: Yes Emergency Medical Condition: Yes Interpretation(s) EKG: Sinus, rate 79, normal axis, normal intervals, no acute ischemic abnormality. Differential Diagnosis Breakthrough seizure, syncope, dysrhythmia, metabolic abnormality, anemia Narrative Course Vital signs show heart rate 75, blood pressure 141/98, pulse ox 98% on room air , oral temp of 98.5F. CBC: WBC 13.8, hemoglobin 14.4, hematocrit 42.2, platelets 207, neutrophils 72%. CMP is essentially unremarkable. Cardiac enzymes are negative. Chest x-ray: No evidence of acute cardio pulmonary disease. CT head: CONCLUSION: No acute intracranial abnormality. Patient is overall very well-appearing and remains asymptomatic while in the emergency department. He may have had a breakthrough seizure or he may have had a syncopal episode. He had an echocardiogram in February of last year that showed normal LV function with an EF of 50-55%. MRI and MRAs of the brain were performed in May of this year for suspected CVA with right lower extremity weakness and were essentially unremarkable aside from chronic microvascular ischemic changes. Patient was made aware of all findings, at this point he is stable for discharge home with outpatient follow-up with a primary care physician this week. He was advised on when to return to the emergency department. He verbalizes understanding and agreement with plan. Diagnosis Primary Impression: syncope vs breakthrough seizure Referrals: [facility] 3 days Primary Care Physician 3 days Additional Instructions: Follow-up with a primary care physician this week. Take medications as prescribed. Return to the emergency department for worsening symptoms or any other concerns. Disposition: 01 DISCHARGE HOME Condition: Bruce Butler MD Jul 01, 2017 21:29
[2017-07-01] MEDS ORDERED: SODIUM CHLORIDE 0.9% FLUSH 10 ML FLUSH IVF PRN (21:30)
--- NOTE | 2017-07-01 21:57 | RADRPT ---
EXAM DATE/TIME: 07/01/2017 21:37 [facility] COMPARISON: No previous studies available for comparison. INDICATIONS : Syncope. MEDICAL HISTORY : Cerebrovascular disease. Seizures. Stroke SURGICAL HISTORY : Inguinal hernia repair. Cranial surgery as child. ENCOUNTER: Initial ACUITY: 1 day PAIN SCORE: 0/10 LOCATION: Bilateral chest FINDINGS: A single view of the chest demonstrates the lungs to be symmetrically aerated without evidence of mas s, infiltrate or effusion. The cardiomediastinal contours are unremarkable. Osseous structures are intact. CONCLUSION: No evidence of acute cardiopulmonary disease. Luis Asencio MD on July 01, 2017 at 21:54 Board Certified Radiologist. This report was verified electronically.
[2017-07-01 22:06] LABS: AUTOMATED NEUTROPHIL # 9.9 TH/MM3 (1.8-7.7); BASOPHIL % 0.3 % (0.0-2.0); EOSINOPHIL # 0.2 TH/MM3 (0-0.4); EOSINOPHIL % 1.6 % (0.0-4.0); HEMATOCRIT 42.2 % (39.0-51.0); HEMOGLOBIN 14.4 GM/DL (13.0-17.0); LYMPH % 20.6 % (9.0-44.0); LYMPHOCYTE # 2.8 TH/MM3 (1.0-4.8); MEAN CELL VOLUME 91.4 FL (80.0-100.0); MEAN CORPUSCULAR HEMOGLOBIN 31.2 PG (27.0-34.0); MEAN CORPUSCULAR HGB CONC 34.1 % (32.0-36.0); MEAN PLATELET VOLUME 8.8 FL (7.0-11.0); MONO % 5.7 % (0.0-8.0); MONOCYTE # 0.8 TH/MM3 (0-0.9); NEUT % 71.8 % (16.0-70.0); PLATELET COUNT 207 TH/MM3 (150-450); RED BLOOD COUNT 4.61 MIL/MM3 (4.50-5.90); RED CELL DISTRIBUTION WIDTH 13.8 % (11.6-17.2); WHITE BLOOD COUNT 13.8 TH/MM3 (4.0-11.0)
[2017-07-01 22:19] LABS: ALT (GPT) 26 U/L (12-78); AST (GOT) 16 U/L (15-37); BLOOD UREA NITROGEN 5 MG/DL (7-18); CALCIUM 8.1 MG/DL (8.5-10.1); CHLORIDE 107 MEQ/L (98-107); CREATININE 1.11 MG/DL (0.60-1.30); GLOMERULAR FILTRATION RATE 74 ML/MIN (>89); GLUCOSE,RANDOM 83 MG/DL (74-106); SODIUM (NA) 144 MEQ/L (136-145)
[2017-07-01 22:23] LABS: ALKALINE PHOSPHATASE 69 U/L (45-117); TOTAL BILIRUBIN ADULT 0.2 MG/DL (0.2-1.0); TOTAL PROTEIN 7.4 GM/DL (6.4-8.2); TROPONIN I LESS THAN 0.02 NG/ML (0.02-0.05)
--- NOTE | 2017-07-01 22:47 | RADRPT ---
EXAM DATE/TIME: 07/01/2017 21:57 [facility] COMPARISON: CT BRAIN W/O CONTRAST, June 07, 2017, 23:31. INDICATIONS : Syncopal episode. Possible seizure. RADIATION DOSE: 56.35 CTDIvol (mGy) MEDICAL HISTORY : Seizures. Cerebrovascular disease. TIA. SURGICAL HISTORY : Cranial suture surgery as infant. ENCOUNTER: Initial ACUITY: 1 day PAIN SCALE: 0/10 LOCATION: cranial TECHNIQUE: Multiple contiguous axial images were obtained of the head. Using automated exposure control and adj ustment of the mA and/or kV according to patient size, radiation dose was kept as low as reasonably a chievable to obtain optimal diagnostic quality images. DICOM format image data is available electro nically for review and comparison. FINDINGS: CEREBRUM: The ventricles are normal for age. No evidence of midline shift, mass lesion, hemorrhage or acute in farction. No extra-axial fluid collections are seen. POSTERIOR FOSSA: The cerebellum and brainstem are intact. The 4th ventricle is midline. The cerebellopontine angle i s unremarkable. EXTRACRANIAL: The visualized portion of the orbits is intact. SKULL: The calvaria is intact. No evidence of skull fracture. CONCLUSION: No acute intracranial abnormality. Luis Asencio MD on July 01, 2017 at 22:44 Board Certified Radiologist. This report was verified electronically.
--- NOTE | 2017-07-02 16:52 | EKG ---
Date Performed: 07/01/2017 Time Performed: 21:51:30 PTAGE: 41 years EKG: Sinus rhythm NORMAL ECG PREVIOUS,TRACING 06/07/17 @ 23.24.27 Since PREVIOUS TRACING , no significant change noted DOCTOR: Waqar Yeh Interpretating Date/Time 07/02/2017 16:51:01
== END 2017-07-01 23:15 | disposition home or self-care (01) ==
LOC: NEPD 19:11
DX: R55 Syncope and collapse (principal); G40.909 Epilepsy, unspecified, not intractable, without status epilepticus; F25.9 Schizoaffective disorder, unspecified; K21.9 Gastro-esophageal reflux disease without esophagitis; F17.200 Nicotine dependence, unspecified, uncomplicated; Z86.73 Personal history of transient ischemic attack (TIA), and cerebral infarction without residual deficits
CPT/HCPCS: 70450; 71045; 80053; 82550; 82552; 84484; 85025; 93005

== ENCOUNTER 2017-07-26 22:35 | Observation (INO) | payer SELFPAY ==
[~2017-07-26] VITALS: Ht 172.7 cm; Wt 80.0 kg
[2017-07-26 22:44] VITALS: BP 119/77; PULSE 59; RESP 14; TEMP 98.9; O2SAT 98
[2017-07-26 22:48] VITALS: RESP 16; O2SAT 98
--- NOTE | 2017-07-26 22:55 | PD ---
HPI Chief Complaint: Chest Pain Time Seen by Provider: 22:47 Travel History International Travel<30 days: No Contact w/Intl Traveler<30days: No Traveled to known affect area: No History of Present Illness HPI The patient is a 41 year old male who presents to the [facility] emergency department with a history of chest pain that began 2 days ago. The patient reports that the pain is coming and going. The patient reports that it began again around 9:30 PM this evening while he was walking to his girlfriend's car. He reports that the pain is a sharp sensation in the left side of his chest that at times she would an electrical pain down his left arm. He denies having any shortness of breath. He reports that he does take a low-dose aspirin each morning related to a prior history of cerebrovascular accident. He reports that earlier today he had nausea and vomiting 2 which she attributes to eating [employer]. He denies having any diarrhea. He reports that he did have some diaphoresis. He reports that the pain is a 7 out of 10 in severity currently. The patient was given aspirin 324 mg by ambulance services prior to arrival and glycerin sublingual 1. The patient denies having any prior history of MN, congestive heart failure, DVT, or PE. The patient does however report that he smokes a half a pack of cigarettes daily. He denies ever having a stress test done previously. He denies any known history of hypertension, hyperlipidemia, or diabetes mellitus. On review of systems otherwise, the patient denies having any known recent fevers, cough, congestion, neck pain, abdominal pain, urinary symptoms, or neurologic symptoms. [facility] Past Medical History Narrative Medical The patient's past medical history is significant for schizoaffective disorder, seizure disorder, reported history of mini strokes 3 with residual weakness from his last stroke involving the right side of his body. He uses a cane for walking. The patient has a history of chronic neck and back pain. The patient has a history of arthritis. Hx Anticoagulant Therapy: Yes (BABY ASA) Arthritis: Yes (SPINE,NECK,BACK) Asthma: No Autoimmune Disease: No Blood Disorders: No Anxiety: No Depression: Yes (mild) Heart Rhythm Problems: No Cancer: No Cardiovascular Problems: No High Cholesterol: No Chemotherapy: No Chest Pain: No Congestive Heart Failure: No COPD: No Cerebrovascular Accident: Yes ("Multiple") Diabetes: No Diminished Hearing: No Endocrine: No Gastrointestinal Disorders: Yes (GERD) GERD: Yes Glaucoma: No Genitourinary: No Headaches: Yes Hepatitis: No Hiatal Hernia: No Hypertension: No Immune Disorder: No Inguinal Hernia: Yes Implanted Vascular Access Dvce: No Kidney Stones: No Musculoskeletal: Yes Neurologic: Yes (SEIZURE DISORDER, SCHIZOAFFECTIVE disorder) Psychiatric: Yes (schizoaffective disorder) Reproductive: No Respiratory: No Immunizations Current: No Migraines: Yes Myocardial Infarction: No Radiation Therapy: No Renal Failure: No Schizophrenia: Yes Seizures: Yes Sickle Cell Disease: No Sleep Apnea: No Thyroid Disease: No Ulcer: No Tetanus Vaccination: < 5 Years PNEUMOCCOCAL Vaccine (Year): 2 Past Surgical History Narrative Surgical The patient's past surgical history is significant for 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 Abdominal Surgery: Yes (hernia repair) AICD: No Cardiac Surgery: No Ear Surgery: No Endocrine Surgery: No Eye Surgery: No Genitourinary Surgery: No Gynecologic Surgery: No Insulin Pump: No Neurologic Surgery: Yes ( cranial suture surgery) Oral Surgery: No Pacemaker: No Thoracic Surgery: No Other Surgery: Yes (HERNIA REPAIR, intracranial operation at 1.5 years old) Social History Alcohol Use: Yes (Occasionally) Tobacco Use: Yes (One half pack per day) Substance Use: No Allergies-Medications (Allergen,Severity, Reaction): Coded Allergies: haloperidol (Unverified Allergy, Severe, MUSCLE SPASMS, 06/07/17) phenytoin (Unverified Allergy, Severe, VISION LOSS, 06/07/17) benztropine (Unverified Adverse Reaction, Severe, MUSCLE SPASMS, 06/07/17) Reported Meds & Prescriptions Reported Meds & Active Scripts Active Lovastatin 20 Mg Tab 20 Mg PO DAILY Aspirin EC (Aspirin) 81 Mg Tabdr 81 Mg PO DAILY Seroquel (Quetiapine Fumarate) 100 Mg Tab 100 Mg PO DAILY Cane with Strap/Black (Device) 1 Mis Mis Ea .ROUTE DIRECTED Ibuprofen 800 Mg Tab 800 Mg PO Q6HR PRN Reported Trazodone (Trazodone HCl) 50 Mg Tab 100 Mg PO HS Seroquel (Quetiapine Fumarate) 400 Mg Tab 400 Mg PO HS Trileptal (Oxcarbazepine) 300 Mg Tab 300 Mg PO BID Review of Systems Except as stated in HPI: all other systems reviewed are Neg General / Constitutional: No: Fever Eyes: No: Visual changes HENT: No: Headaches, Congestion Cardiovascular: Positive: Chest Pain or Discomfort, Diaphoresis, No: Dyspnea on exertion Respiratory: No: Cough, Shortness of Breath Gastrointestinal: Positive: Nausea, Vomiting, No: Diarrhea, Abdominal Pain Genitourinary: No: Dysuria Musculoskeletal: No: Pain Skin: No Rash Neurologic: No: Weakness, Focal Abnormalities, Change in Mentation, Slurred Speech, Sensory Disturbance Psychiatric: No: Depression Endocrine: No: Polydipsia Hematologic/Lymphatic: No: Easy Bruising Physical Exam Narrative General: The patient is a well-developed well-nourished male in no acute distress. Head and Neck exam: Head is normocephalic atraumatic. Eyes: EOMI, pupils are equal round and reactive to light. Nose: Midline septum with pink mucous membranes Mouth: Dentition unremarkable. Moist mucus membranes. Posterior oropharynx is not erythematous. No tonsillar hypertrophy. Uvula midline. Airway patent. Neck: No palpable lymphadenopathy. No nuchal rigidity. No thyromegaly. Cardiovascular: Regular rate and rhythm without murmurs, gallops, or rubs. No chest wall tenderness on palpation. No flail segment. No erythema or ecchymosis. Lungs: Clear to auscultation bilaterally. No wheezes, rhonchi, or rales. Abdomen: Soft, without tenderness to palpation in all 4 quadrants of the abdomen. No guarding, rebound, or rigidity. Normal bowel sounds are audible. No tenderness on palpation of McBurney's point. Extremities: No clubbing, cyanosis, or edema. 2+ pulses in all 4 extremities. No calf tenderness on palpation. Back: No spinous process tenderness to palpation. No costovertebral angle tenderness to palpation. Neurologic Exam: Grossly nonfocal. Skin Exam: No rash noted. Intact skin that is warm and dry. Data Data Last Documented VS Vital Signs Date Time Temp Pulse Resp B/P (MAP) Pulse Ox O2 Delivery O2 Flow Rate FiO2 07/26/17 22:48 98 Nasal Cannula 2.00 07/26/17 22:48 16 07/26/17 22:46 59 07/26/17 22:44 98.9 119/77 (91) Orders Orders Electrocardiogram (07/26/17 22:47) B-Type Natriuretic Peptide (07/26/17 22:47) Ckmb (Isoenzyme) Profile (07/26/17 22:47) Complete Blood Count With Diff (07/26/17 22:47) Comprehensive Metabolic Panel (07/26/17 22:47) D-Dimer (07/26/17 22:47) Magnesium (Mg) (07/26/17 22:47) Prothrombin Time / Inr (Pt) (07/26/17 22:47) Act Partial Throm Time (Ptt) (07/26/17 22:47) Troponin I (07/26/17 22:47) Lipase (07/26/17 22:47) Chest, Single Ap (07/26/17 22:47) Ecg Monitoring (07/26/17 22:47) Bilateral Bp Monitoring (07/26/17 22:47) Iv Access Insert/Monitor (07/26/17 22:47) Oximetry (07/26/17 22:47) Oxygen Administration (07/26/17 22:47) Nitroglycerin 2% Oint (Nitroglycerin 2% (07/26/17 23:00) Sodium Chloride 0.9% Flush (Ns Flush) (07/26/17 23:00) Sodium Chlorid 0.9% 500 Ml Inj (Ns 500 M (07/26/17 23:00) CKMB (07/26/17 22:50) CKMB% (07/26/17 22:50) Admit Order (Ed Use Only) (07/26/17 23:48) Labs Laboratory Tests Test 07/26/17 22:50 White Blood Count 9.3 TH/MM3 Red Blood Count 4.61 MIL/MM3 Hemoglobin 14.5 GM/DL Hematocrit 41.6 % Mean Corpuscular Volume 90.2 FL Mean Corpuscular Hemoglobin 31.4 PG Mean Corpuscular Hemoglobin Concent 34.9 % Red Cell Distribution Width 13.7 % Platelet Count 242 TH/MM3 Mean Platelet Volume 9.2 FL Neutrophils (%) (Auto) 59.7 % Lymphocytes (%) (Auto) 30.8 % Monocytes (%) (Auto) 5.9 % Eosinophils (%) (Auto) 3.2 % Basophils (%) (Auto) 0.4 % Neutrophils # (Auto) 5.5 TH/MM3 Lymphocytes # (Auto) 2.9 TH/MM3 Monocytes # (Auto) 0.5 TH/MM3 Eosinophils # (Auto) 0.3 TH/MM3 Basophils # (Auto) 0.0 TH/MM3 CBC Comment DIFF FINAL Differential Comment Prothrombin Time 10.8 SEC Prothromb Time International Ratio 1.1 RATIO Activated Partial Thromboplast Time 25.8 SEC D-Dimer Quantitative (PE/DVT) LESS THAN 0.19 MG/L FEU Blood Urea Nitrogen 10 MG/DL Creatinine 1.09 MG/DL Random Glucose 104 MG/DL Total Protein 6.9 GM/DL Albumin 3.8 GM/DL Calcium Level 8.9 MG/DL Magnesium Level 2.0 MG/DL Alkaline Phosphatase 66 U/L Aspartate Amino Transf (AST/SGOT) 20 U/L Alanine Aminotransferase (ALT/SGPT) 24 U/L Total Bilirubin 0.2 MG/DL Sodium Level 140 MEQ/L Potassium Level 4.0 MEQ/L Chloride Level 103 MEQ/L Carbon Dioxide Level 30.6 MEQ/L Anion Gap 6 MEQ/L Estimat Glomerular Filtration Rate 75 ML/MIN Total Creatine Kinase 135 U/L Creatine Kinase MB 0.7 NG/ML Troponin I LESS THAN 0.02 NG/ML B-Type Natriuretic Peptide 10 PG/ML Lipase 90 U/L MDM Medical Decision Making Medical Screen Exam Complete: Yes Emergency Medical Condition: Yes Medical Record Reviewed: Yes Interpretation(s) Last Impressions Chest X-Ray 07/26/177 Signed Impressions: Service Date/Time: Wednesday, July 26, 2017 22:53 - CONCLUSION: Underinflated examination without an acute cardiopulmonary abnormality identified. Luis Jon MD Differential Diagnosis Acute coronary syndrome, versus pneumothorax, versus pneumonia, versus pleurisy , versus costochondritis, versus musculoskeletal strain, versus pulmonary embolus Narrative Course During the course of the patient's emergency department visit, the patient's history, examination, and differential diagnosis were reviewed with the patient. The patient was placed on a monitor and storage bin tender with oximetry and frequent blood pressure monitoring. The patient had IV access obtained and blood work sent for analysis. The patient had an EKG done on arrival. The patient's EKG shows a sinus rhythm heart rate of 71, no acute ST segment elevation or depression. QRS duration is 93 ms, QTC 383 ms. The patient was initially provided aspirin by ambulance services prior to arrival at 324 mg p.o. The patient was given nitroglycerin 1 inch to the chest wall in the emergency department. The patient was started on normal saline at 500 mL/h. The patient's laboratory studies were reviewed and remarkable for a CBC that is within normal limits, CMP remarkable for a GFR of 75, cardiac enzymes within normal limits, BNP 10, lipase 90, PT PTT within normal limits, d-dimer less than 0.19 decrease the likelihood of pulmonary embolism in this patient with no other significant risk factors Radiology studies were reviewed and remarkable for chest x-ray today shows an underinflated examination without any acute cardiopulmonary abnormality identified The patient will be admitted to the chest pain center for rule out serial cardiac enzymes protocol, followed by stress testing. The patient's results were discussed with the patient, including the plan of care. I explained that further testing and/ or monitoring is indicated based on the patient's history, examination, and/ or laboratory findings. Therefore, I recommended admission for additional evaluation. The patient expressed understanding and was agreeable with this plan. The patient was admitted to the hospital in stable condition and sent to a bed under the care of the chest pain center. Diagnosis Primary Impression: Chest pain, rule out acute myocardial infarction Admitting Information Admitting Physician Requests: Observation Leah Rankin MD Jul 26, 2017 22:55
[2017-07-26] MEDS ORDERED: NITROGLYCERIN 2% OINT 1 GM PACKET TOP ONE (23:00)
[2017-07-26] MEDS ORDERED: SODIUM CHLORIDE 0.9% FLUSH 10 ML FLUSH IVF PRN (23:00)
[2017-07-26] MEDS ORDERED: SODIUM CHLORID 0.9% 500 ML INJ 500 ML IV ONE (23:00)
[2017-07-26 23:03] LABS: AUTOMATED NEUTROPHIL # 5.5 TH/MM3 (1.8-7.7); BASOPHIL % 0.4 % (0.0-2.0); EOSINOPHIL # 0.3 TH/MM3 (0-0.4); EOSINOPHIL % 3.2 % (0.0-4.0); HEMATOCRIT 41.6 % (39.0-51.0); HEMOGLOBIN 14.5 GM/DL (13.0-17.0); LYMPH % 30.8 % (9.0-44.0); LYMPHOCYTE # 2.9 TH/MM3 (1.0-4.8); MEAN CELL VOLUME 90.2 FL (80.0-100.0); MEAN CORPUSCULAR HEMOGLOBIN 31.4 PG (27.0-34.0); MEAN CORPUSCULAR HGB CONC 34.9 % (32.0-36.0); MEAN PLATELET VOLUME 9.2 FL (7.0-11.0); MONO % 5.9 % (0.0-8.0); MONOCYTE # 0.5 TH/MM3 (0-0.9); NEUT % 59.7 % (16.0-70.0); PLATELET COUNT 242 TH/MM3 (150-450); RED BLOOD COUNT 4.61 MIL/MM3 (4.50-5.90); RED CELL DISTRIBUTION WIDTH 13.7 % (11.6-17.2); WHITE BLOOD COUNT 9.3 TH/MM3 (4.0-11.0)
--- NOTE | 2017-07-26 23:15 | RADRPT ---
EXAM DATE/TIME: 07/26/2017 22:53 [facility] COMPARISON: CHEST SINGLE AP, July 01, 2017, 21:37. INDICATIONS : Chest pain. MEDICAL HISTORY : Seizures. Cerebrovascular accident. GERD. SURGICAL HISTORY : Hernia repair. Skull surgery as a child. ENCOUNTER: Initial ACUITY: 3 days PAIN SCORE: 6/10 LOCATION: Bilateral chest FINDINGS: Underinflated AP view of the chest demonstrates a normal-sized cardiac silhouette. No pleural effusio n, airspace consolidation, or pneumothorax is visualized. The bones and soft tissues demonstrate no a cute finding. CONCLUSION: Underinflated examination without an acute cardiopulmonary abnormality identified. Luis Jon MD on July 26, 2017 at 23:13 Board Certified Radiologist. This report was verified electronically.
[2017-07-26 23:19] LABS: INTERNATIONAL NORMALIZED RATIO 1.1 RATIO; PROTHROMBIN TIME - PATIENT 10.8 SEC (9.8-11.6)
[2017-07-26 23:20] LABS: ALKALINE PHOSPHATASE 66 U/L (45-117); TOTAL BILIRUBIN ADULT 0.2 MG/DL (0.2-1.0); TOTAL PROTEIN 6.9 GM/DL (6.4-8.2); TROPONIN I LESS THAN 0.02 NG/ML (0.02-0.05)
[2017-07-26 23:23] LABS: ALBUMIN 3.8 GM/DL (3.4-5.0); ALT (GPT) 24 U/L (12-78); AST (GOT) 20 U/L (15-37); BICARBONATE 30.6 MEQ/L (21.0-32.0); BLOOD UREA NITROGEN 10 MG/DL (7-18); CALCIUM 8.9 MG/DL (8.5-10.1); CHLORIDE 103 MEQ/L (98-107); CREATININE 1.09 MG/DL (0.60-1.30); D-DIMER LESS THAN 0.19 MG/L FEU (0.00-0.50); GLOMERULAR FILTRATION RATE 75 ML/MIN (>89); GLUCOSE,RANDOM 104 MG/DL (74-106); SODIUM (NA) 140 MEQ/L (136-145)
[2017-07-27] VITALS (7 sets, daily range): BP systolic 99–112; BP diastolic 56–80; PULSE 63–87; RESP 18; TEMP 98.1–99.7; O2SAT 95
[2017-07-27] MEDS ORDERED: SODIUM CHLOR 0.9% 1000 ML INJ 1,000 ML IV SCH (01:04)
[2017-07-27] MEDS ORDERED: ACETAMINOPHEN 500 MG CPLT PO PRN (01:15)
[2017-07-27] MEDS ORDERED: SODIUM CHLORIDE 0.9% FLUSH 10 ML FLUSH IV FLUSH PRN (01:15)
[2017-07-27 02:36] LABS: TROPONIN I LESS THAN 0.02 NG/ML (0.02-0.05)
[2017-07-27 05:24] LABS: TROPONIN I LESS THAN 0.02 NG/ML (0.02-0.05)
[2017-07-27] MEDS ORDERED: CYMB30CA PO (07:37)
--- NOTE | 2017-07-27 07:40 | EKG ---
Date Performed: 07/26/2017 Time Performed: 22:47:15 PTAGE: 41 years EKG: Sinus rhythm NORMAL ECG Artifact Since PREVIOUS TRACING , no significant change noted PREVIOUS TRACIN07/01/2017 21.51 DOCTOR: Elaine Sánchez Interpretating Date/Time 07/27/2017 07:38:59
--- NOTE | 2017-07-27 07:40 | EKG ---
Date Performed: 07/27/2017 Time Performed: 02:10:07 PTAGE: 41 years EKG: Sinus rhythm NORMAL ECG Since PREVIOUS TRACING , no significant change noted PREVIOUS TRACIN07/26/2017 22.47 DOCTOR: Elaine Sánchez Interpretating Date/Time 07/27/2017 07:39:14
--- NOTE | 2017-07-27 07:41 | EKG ---
Date Performed: 07/27/2017 Time Performed: 05:38:58 PTAGE: 41 years EKG: SINUS BRADYCARDIA WITH SINUS ARRHYTHMIA BORDERLINE ECG Since PREVIOUS TRACING , no significant change noted PREVIOUS TRACIN07/27/2017 02.10 DOCTOR: Elaine Sánchez Interpretating Date/Time 07/27/2017 07:39:25
--- NOTE | 2017-07-27 08:49 | HHI.HP ---
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 States is been intermittent. States has been random. Nothing in particular brings on. It does not radiate. He was nauseous yesterday.. Denies diaphoresis. Denied shortness of breath. Denies history of CAD but cannot recall ever having a cardiac evaluation. Denies recent illness. Denies fevers or chills. He states that the CVA that he had in February 2017 fact that his right side and made him a little bit unsteady but states he would be a walk on the treadmill. States he could even run on a treadmill. States he is not taking statin at this time. States he could not afford lovastatin. Review of Systems General: Patient denies fevers, chills recent, and recent travel HEENT: Patient denies headache, sore throat, difficulty swallowing. Cardiovascular: Has the chest discomfort as mentioned above. Denies sensation of heart beating rapidly or irregularly. No syncope. Denies diaphoresis. Respiratory: Denies shortness of breath or inspirational chest discomfort. Denies coughing wheezing or hemoptysis. GI: He was nauseous yesterday. Patient denies vomiting, diarrhea, abdominal pain, bloody stools. Musculoskeletal: Patient denies joint pain or edema. Denies calf pain or edema. Neurovascular: Patient denies numbness, tingling, states that his right upper and lower extremities are a little weaker have been chronically since CVA February 2017. Denies headache. Endocrine: Denies polyuria and polydipsia. Hematologic: Denies easy bruising. Skin: Denies rash or itching. Past Family Social History Allergies: Coded Allergies: haloperidol (Unverified Allergy, Severe, MUSCLE SPASMS, 06/07/17) phenytoin (Unverified Allergy, Severe, VISION LOSS, 06/07/17) benztropine (Unverified Adverse Reaction, Severe, MUSCLE SPASMS, 06/07/17) Past Medical History CVA February 2017, tobacco abuse, hyperlipidemia, seizure disorder, schizoaffective disorder. Denies hypertension, diabetes, and known CAD. Past Surgical History Intracranial surgery as a child. Hernia repair. Reported Medications Reported Meds & Active Scripts Active Lovastatin 20 Mg Tab 20 Mg PO DAILY Aspirin EC (Aspirin) 81 Mg Tabdr 81 Mg PO DAILY Seroquel (Quetiapine Fumarate) 100 Mg Tab 100 Mg PO DAILY Cane with Strap/Black (Device) 1 Mis Mis Ea .ROUTE DIRECTED Ibuprofen 800 Mg Tab 800 Mg PO Q6HR PRN Reported Cymbalta DR (Duloxetine HCl) 30 Mg Capdr 30 Mg PO DAILY Trazodone (Trazodone HCl) 50 Mg Tab 100 Mg PO HS Seroquel (Quetiapine Fumarate) 400 Mg Tab 400 Mg PO HS Trileptal (Oxcarbazepine) 300 Mg Tab 300 Mg PO BID Active Ordered Medications Current Medications Medications (Trade) Dose Ordered Sig/Cherie Route Start Time Stop Time Status Last Admin (NS Flush) 2 ml UNSCH PRN IVF 07/26/17 23:00 Sodium Chloride 1,000 ml @ 100 mls/hr Q10H IV 07/27/17 01:04 07/27/17 01:15 (NS Flush) 2 ml UNSCH PRN IV FLUSH 07/27/17 01:15 (NS Flush) 2 ml BID IV FLUSH 07/27/17 09:00 (Tylenol) 500 mg Q4H PRN PO 07/27/17 01:15 (Cymbalta Dr) 30 mg DAILY PO 07/27/17 09:00 (Pravachol) 20 mg DAILY PO 07/27/17 09:00 (Trileptal) 300 mg BID PO 07/27/17 09:00 (SEROquel) 100 mg DAILY PO 07/27/17 09:00 (Desyrel) 100 mg HS PO 07/27/17 21:00 (SEROquel) 400 mg HS PO 07/27/17 21:00 (Aspirin) 325 mg DAILY PO 07/27/17 09:00 Family History Denies knowledge of family history of CAD. Social History Neal one half pack of cigarettes daily. Denies illicit drugs. Has occasional alcohol. Physical Exam Vital Signs Vital Signs Date Time Temp Pulse Resp B/P (MAP) Pulse Ox O2 Delivery O2 Flow Rate FiO2 07/27/17 08:05 99.7 63 18 112/80 (91) 95 07/27/17 06:56 21 07/27/17 04:34 68 2/6/18 03:37 98.2 76 18 111/56 (74) 95 07/26/17 22:48 98 Nasal Cannula 2.00 07/26/17 22:48 16 98 Room Air 07/26/17 22:46 59 07/26/17 22:44 98.9 59 14 119/77 (91) 98 Physical Exam GENERAL: This is a well-nourished, well-developed patient, in no apparent distress. Patient speaks in clear complete sentences. Patient is pleasant. HEENT: Head is atraumatic and normocephalic. Neck is supple without lymphadenopathy and trachea is midline. No JVD or carotid bruits. CARDIOVASCULAR: Regular rate and rhythm without murmurs, gallops, or rubs. RESPIRATORY: Clear to auscultation. Breath sounds equal bilaterally. No wheezes , rales, or rhonchi. Chest wall is nontender. No use of accessory muscles. GASTROINTESTINAL: Abdomen is nontender, nondistended. Abdomen soft. No obvious pulsatile mass or bruit. No CVA tenderness. Strong femoral pulses bilaterally. Normal bowel sounds in all quadrants. MUSCULOSKELETAL: Patient is moving upper and lower extremities freely. No calf tenderness or edema, no Homans sign. Strong pulses in upper and lower extremities. NEUROLOGICAL: Patient is alert and oriented. Cranial nerves 2-12 are grossly intact. I do not appreciate any gross differences in strength when comparing right to left side. No focal deficits and speech is clear. SKIN: No rash and turgor is normal. Laboratory Laboratory Tests Test 07/26/17 22:50 07/27/17 01:55 07/27/17 04:48 White Blood Count 9.3 Red Blood Count 4.61 Hemoglobin 14.5 Hematocrit 41.6 Mean Corpuscular Volume 90.2 Mean Corpuscular Hemoglobin 31.4 Mean Corpuscular Hemoglobin Concent 34.9 Red Cell Distribution Width 13.7 Platelet Count 242 Mean Platelet Volume 9.2 Neutrophils (%) (Auto) 59.7 Lymphocytes (%) (Auto) 30.8 Monocytes (%) (Auto) 5.9 Eosinophils (%) (Auto) 3.2 Basophils (%) (Auto) 0.4 Neutrophils # (Auto) 5.5 Lymphocytes # (Auto) 2.9 Monocytes # (Auto) 0.5 Eosinophils # (Auto) 0.3 Basophils # (Auto) 0.0 CBC Comment DIFF FINAL Differential Comment Prothrombin Time 10.8 Prothromb Time International Ratio 1.1 Activated Partial Thromboplast Time 25.8 D-Dimer Quantitative (PE/DVT) LESS THAN 0.19 Blood Urea Nitrogen 10 Creatinine 1.09 Random Glucose 104 Total Protein 6.9 Albumin 3.8 Calcium Level 8.9 Magnesium Level 2.0 Alkaline Phosphatase 66 Aspartate Amino Transf (AST/SGOT) 20 Alanine Aminotransferase (ALT/SGPT) 24 Total Bilirubin 0.2 Sodium Level 140 Potassium Level 4.0 Chloride Level 103 Carbon Dioxide Level 30.6 Anion Gap 6 Estimat Glomerular Filtration Rate 75 Total Creatine Kinase 135 109 97 Creatine Kinase MB 0.7 0.8 Troponin I LESS THAN 0.02 LESS THAN 0.02 LESS THAN 0.02 B-Type Natriuretic Peptide 10 Lipase 90 Result Diagram: 07/26/17224907/26/172249 Imaging Last 48 hours Impressions Chest X-Ray 07/26/172246 Signed Impressions: Service Date/Time: Wednesday, July 26, 2017 22:53 - CONCLUSION: Underinflated examination without an acute cardiopulmonary abnormality identified. Luis Jon MD Course EKGs are sinus rhythm without significant ST segment depressions or elevations. Caprini VTE Risk Assessment Caprini VTE Risk Assessment: No/Low Risk (score <= 1) Caprini Risk Assessment Model Point Value = 1 Point Value = 2 Point Value = 3 Point Value = 5 Age 41-60 Minor surgery BMI > 25 kg/m2 Swollen legs Varicose veins or History of unexplained or recurrent spontaneous Oral contraceptives or hormone replacement Sepsis (< 1 month) Serious lung disease, including pneumonia (< 1 month) Abnormal pulmonary function Acute myocardial infarction Congestive heart failure (< 1 month) History of inflammatory bowel disease Medical patient at bed rest Age 61-74 Arthroscopic surgery Major open surgery (> 45 min) Laparoscopic surgery (> 45 min) Malignancy Confined to bed (> 72 hours) Immobilizing plaster cast Central venous access Age >= 75 History of VTE Family history of VTE Factor V Leiden Prothrombin [id number] Lupus anticoagulant Anticardiolipin antibodies Elevated serum homocysteine Heparin-induced thrombocytopenia Other congenital or acquired thrombophilia Stroke (< 1 month) Elective arthroplasty Hip, pelvis, or leg fracture Acute spinal cord injury (< 1 month) Prophylaxis Regimen Total Risk Factor Score Risk Level Prophylaxis Regimen 0-1 Low Early ambulation 2 Moderate Order ONE of the following: *Sequential Compression Device (SCD) *Heparin 5000 units SQ BID 3-4 Higher Order ONE of the following medications: *Heparin 5000 units SQ TID *Enoxaparin/Lovenox 40 mg SQ daily (WT < 150 kg, CrCl > 30 mL/min) *Enoxaparin/Lovenox 30 mg SQ daily (WT < 150 kg, CrCl > 10-29 mL/min) *Enoxaparin/Lovenox 30 mg SQ BID (WT < 150 kg, CrCl > 30 mL/min) AND/OR *Sequential Compression Device (SCD) 5 or more Highest Order ONE of the following medications: *Heparin 5000 units SQ TID (Preferred with Epidurals) *Enoxaparin/Lovenox 40 mg SQ daily (WT < 150 kg, CrCl > 30 mL/min) *Enoxaparin/Lovenox 30 mg SQ daily (WT < 150 kg, CrCl > 10-29 mL/min) *Enoxaparin/Lovenox 30 mg SQ BID (WT < 150 kg, CrCl > 30 mL/min) AND *Sequential Compression Device (SCD) Assessment and Plan Assessment and Plan * Chest pain: Patient has had serial cardiac enzymes and EKGs for ruling out purposes. He was seen by Dr. Sánchez cardiology and the chest pain center. States he would be able to walk on the treadmill. ETT was attempted but he was unable to walk on a treadmill and subsequently a Lexiscan has been ordered. Patient will be discharged home if Lexiscan was nonischemic with instructions to follow-up with PCP. Return to ED for interval issues. * History of CVA: Patient will continue aspirin. He is not taking a statin. Will discuss when he should get his cholesterol medication where it is affordable. He needs to take it. He needs to quit smoking. * Hyperlipidemia: Patient will need to take statin as instructed by his PCP. * Seizure disorder: Continue current medication. * Schizoaffective disorder: Continue current medications. * Tobacco abuse: Patient has been counseled on the importance of smoking cessation. Patient is stable at this time. He is agreeable to this plan. Sami Sorto Jul 27, 2017 08:49
[2017-07-27] MEDS ORDERED: OXcarbazepine 300 MG TAB PO SCH (09:00)
[2017-07-27] MEDS ORDERED: SODIUM CHLORIDE 0.9% FLUSH 10 ML FLUSH IV FLUSH SCH (09:00)
[2017-07-27] MEDS ORDERED: PRAVASTATIN SOD 20 MG TAB PO SCH (09:00)
[2017-07-27] MEDS ORDERED: QUEtiapine FUMARATE 100 MG TAB PO SCH (09:00)
[2017-07-27] MEDS ORDERED: ASPIRIN 325 MG TAB PO SCH (09:00)
[2017-07-27] MEDS ORDERED: DULoxetine HCl DR 30 MG CAP PO SCH (09:00)
[2017-07-27] MEDS ORDERED: REGADENOSON INJ 0.4 MG/5 ML SYR ONE (11:06)
--- NOTE | 2017-07-27 12:10 | RADRPT ---
EXAM DATE/TIME: 07/27/2017 10:55 [facility] COMPARISON: No previous studies available for comparison. INDICATIONS : Substernal chest pain with nausea and diaphoresis. Angina. DOSE: 26.4 mCi Tc99m Myoview at stress. 8.5 mCi Tc99m Myoview at rest. 0.4 mg Lexiscan STRESS SYMPTOMS: Dyspnea. EJECTION FRACTION: 57% MEDICAL HISTORY : Gastroesophageal reflux disease. SURGICAL HISTORY : Hernia repair. ENCOUNTER: Initial ACUITY: 2 days PAIN SCALE: 7/10 LOCATION: Substernal chest TECHNIQUE: The patient underwent pharmacologic stress with infusion of prescribed dose. Continuous ECG tracing was monitored during stress. Gated SPECT imaging was performed after stress and conventional SPECT i maging was performed at rest. The examination was performed on a SPECT/CT scanner, both attenuation and non-corrected datasets were reviewed. FINDINGS: DISTRIBUTION: The maximum perfused segment at stress is in the lateral wall. PERFUSION STUDY: The pattern of perfusion at stress is within normal limits. GATED STUDY: There is intact wall motion and thickening without hypokinetic or dyskinetic segments. CONCLUSION: No significant fixed or reversible perfusion abnormalities. Satisfactory LV function. RISK CATEGORY: Low (<1% Annual Mortality Rate) Luis Darnell MD on July 27, 2017 at 11:57 Board Certified Radiologist. This report was verified electronically.
--- NOTE | 2017-07-27 12:48 | HHI.DCPOC ---
Discharge Care Plan Diagnosis: (1) Chest pain (2) Tobacco abuse (3) Hyperlipidemia (4) History of CVA (cerebrovascular accident) (5) Schizoaffective disorder Goals to Promote Your Health * To prevent worsening of your condition and complications * To maintain your health at the optimal level Directions to Meet Your Goals Take your medications as prescribed Follow your dietary instruction Follow activity as directed Keep your appointments as scheduled Take your immunizations and boosters as scheduled If your symptoms worsen call your PCP, if no PCP go to Urgent Care Center or Emergency Room Smoking is Dangerous to Your Health. Avoid second hand smoke Call the 24-hour hour crisis hotline for domestic abuse at Sami Sorto Jul 27, 2017 12:48
--- NOTE | 2017-07-27 12:51 | TR ---
Date Performed: 07/27/2017 Time Performed: 11:08:27 DOCTOR: Elaine Sánchez DRUG LIST: CLINICAL HISTORY: ANGINA REASON FOR TEST: Angina REASON FOR ENDING: OBSERVATION: CONCLUSION: Lexiscan stress test was performed under standard four minute protocol. Radionuclid e was injected one minute prior to ending the test. No electrocardiographic abormalities were present to suggest ischemia. Nuclear imaging and interpretation are pending. COMMENTS:
[2017-07-27] MEDS ORDERED: QUEtiapine FUMARATE 200 MG TAB PO SCH (21:00)
[2017-07-27] MEDS ORDERED: traZODone HCL 100 MG TAB PO SCH (21:00)
== END 2017-07-27 14:56 | disposition home or self-care (01) ==
LOC: NEPE 22:35 → NEDA 23:49 → NEPGCP 07-27 01:51
PROVIDERS: ADMIT Internal Medicine Cardiovascular Disease; ATTEND Internal Medicine Cardiovascular Disease
DX: R07.89 Other chest pain (principal); R00.1 Bradycardia, unspecified; I49.9 Cardiac arrhythmia, unspecified; R11.2 Nausea with vomiting, unspecified; R61 Generalized hyperhidrosis; R26.2 Difficulty in walking, not elsewhere classified; E78.5 Hyperlipidemia, unspecified; G40.909 Epilepsy, unspecified, not intractable, without status epilepticus; F25.9 Schizoaffective disorder, unspecified; I20.9 Angina pectoris, unspecified; M54.2 Cervicalgia; M54.9 Dorsalgia, unspecified; G89.29 Other chronic pain; K21.9 Gastro-esophageal reflux disease without esophagitis; F32.9 Major depressive disorder, single episode, unspecified; F17.210 Nicotine dependence, cigarettes, uncomplicated; Z86.73 Personal history of transient ischemic attack (TIA), and cerebral infarction without residual deficits; Z79.899 Other long term (current) drug therapy; Z79.82 Long term (current) use of aspirin
CPT/HCPCS: 71045; 78452; 80053; 82550; 82552; 83690; 83735; 83880; 84484; 85025; 85379; 85610; 85730; 93005; 93017; 96360; 96361; 99285; A9502; G0378; J2785; J7030; J7040

== ENCOUNTER 2017-09-30 09:15 | Emergency (ER) | payer OTHER ==
[~2017-09-30] VITALS: Ht 172.7 cm; Wt 88.0 kg
[~2017-09-30 09:15] MED LIST changes: -CITA40TA4 PO; +CYMB30CA PO
[2017-09-30 09:22] VITALS: BP 121/77; PULSE 91; RESP 20; TEMP 98.6; O2SAT 99
[2017-09-30] MEDS ORDERED: KETOROLAC TROMETHAMINE 60 MG/2 ML (IM) VIAL IM ONE (09:45)
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
[2017-09-30] MEDS ORDERED: IBUP1TAB7 PO (10:37)
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
== END 2017-09-30 11:20 | disposition home or self-care (01) ==
LOC: NEPK 09:15
DX: S50.312A Abrasion of left elbow, initial encounter (principal); S40.012A Contusion of left shoulder, initial encounter; V03.90XA Pedestrian on foot injured in collision with car, pick-up truck or van, unspecified whether traffic or nontraffic accident, initial encounter; Y92.410 Unspecified street and highway as the place of occurrence of the external cause
CPT/HCPCS: 73030; 73080; 96372; 99283; J1885